=== PATIENT | female | born 1960 | race Caucasian/White ===

== ENCOUNTER 2017-03-16 17:10 | Emergency (ER) | payer OTHER ==
[2017-03-16] MEDS ORDERED: Metoclopramide HCl 10 MG/2 ML VIAL ONE (17:30)
[2017-03-16 17:55] LABS: Lactic Acid - Sepsis 2.6 mmol/L (0.5-2.2)
[2017-03-16 18:00] LABS: Band 2 % (5-11); Hematocrit 47.3 % (36.0-47.0); Mean Platelet Volume 6.1 fL (7.4-10.4); Neutrophil 92 % (42-75); Red Blood Cell (RBC) Count 5.07 mill/uL (4.20-5.40); Troponin I Less than 0.010 ng/mL (< 0.028); White Blood Cell (WBC) Count 8.8 thou/uL (4.8-10.8)
[2017-03-16 18:02] LABS: ALT (SGPT) 42 U/L (8-55); AST (SGOT) 38 U/L (5-34); Alkaline Phosphatase 127 U/L (40-150); Anion Gap 21 mmol/L (10-20); BUN (Urea Nitrogen) 21 mg/dL (9.8-20.1); Bilirubin, Total 0.4 mg/dL (0.2-1.2); CK (CPK) 77 U/L (29-168); Calc. Creatinine Clearance 0 mL/min (70-130); Calcium 9.8 mg/dL (7.8-10.44); Carbon Dioxide 19 mmol/L (22-29); Chloride 105 mmol/L (98-107); Estimated GFR-MDRD 59; Globulin 3.9 g/dL (2.4-3.5); Lipase 11 U/L (8-78); Protein, Total 8.2 g/dL (6.0-8.3)
[2017-03-16 18:35] LABS: Bilirubin Negative (Negative); Blood, Urine Large (Negative); Glucose, Urine (Dipstick) 100 mg/dL (Negative); Ketone, Urine Trace mg/dL (Negative); Nitrite Negative (Negative); Protein, Urine (Dipstick) 100 mg/dL (Neg-Trace); Urobilinogen 0.2 mg/dL (0.2-1.0)
[2017-03-16 18:44] LABS: Bacteria/HPF 2+ HPF (None Seen)
[2017-03-16 19:21] LABS: Lactic Acid - Sepsis 3.2 mmol/L (0.5-2.2)
--- NOTE | 2017-03-16 19:22 | CT ---
CT ABDOMEN AND PELVIS WITHOUT CONTRAST: Date: 03/16/17 HISTORY: Nausea, vomiting, and diarrhea. History of cholecystectomy. COMPARISON: None. FINDINGS: The lung bases are clear. No pericardial effusion. There are large calculi within both renal collecting systems. There is a chronic staghorn calculus wi thin the left renal pelvis with casting. This calculus measures just over 2.0 cm in transverse x 1.0 cm in AP dimension x 1.0 cm in craniocaudal dimension. There are smaller, subcentimeter, calculi in t he left and right inferior renal collecting systems and approximately a 5.0 mm calculus in the left i nterpolar collecting system. There is no perinephric edema nor hydroureter. Aortoiliac contour is normal. The colonic fecal matter is fluid attenuation and non-formed. This sugg ests underlying colitis. Appendix is visualized and is normal. Moderate calcifications of the aortoiliac system with focal ectasia of the infrarenal abdominal aorta which is nonaneurysmal. Prior cholecystectomy. Pancreas and spleen are unremarkable, as well as the adrenal glands. There is sclerosis of the femoral heads bilaterally with focal subcortical lucency suggesting of avas cular necrosis. Severe degenerative disease of pubic symphysis. IMPRESSION: 1. Extensive bilateral renal calculi without evidence of ureteral obstruction. There is a 2.0 x 1.0 x 1.0 cm calculus in the left renal pelvis, likely a staghorn calculus. 2. No hydroureter. No perinephric stranding. 3. Non-formed stool throughout the colon suggests diarrhea. 4. Avascular necrosis femoral heads without significant articular surface depression yet identified. POS: [facility]
[2017-03-16] MEDS ORDERED: Acetaminophen 500 MG TAB ONE (20:15)
[2017-03-16] MEDS ORDERED: Insulin Regular 300 UNITS/3 ML VIAL ONE (21:55)
== END 2017-03-16 22:09 | disposition home or self-care (01) ==
LOC: SCSER 17:10
DX: E87.2 Acidosis (principal); R11.2 Nausea with vomiting, unspecified; I25.10 Atherosclerotic heart disease of native coronary artery without angina pectoris; I11.0 Hypertensive heart disease with heart failure; I50.9 Heart failure, unspecified; I25.2 Old myocardial infarction; E11.9 Type 2 diabetes mellitus without complications; J44.9 Chronic obstructive pulmonary disease, unspecified; F41.9 Anxiety disorder, unspecified; F32.9 Major depressive disorder, single episode, unspecified; F17.290 Nicotine dependence, other tobacco product, uncomplicated; Z79.82 Long term (current) use of aspirin; Z79.4 Long term (current) use of insulin; Z79.51 Long term (current) use of inhaled steroids; Z79.899 Other long term (current) drug therapy
CPT/HCPCS: 36416; 74176; 80053; 81003; 81015; 82550; 82553; 83605; 83690; 84484; 85025; 93005; 96361; 96372; 96374; J1815; J2765

== ENCOUNTER 2017-06-08 19:58 | Observation (INO) | payer SELFPAY ==
[2017-06-08 21:00] LABS: #Basophils 0.1 thou/uL (0.0-0.2); #Eosinphils 0.1 thou/uL (0.0-0.7); #Monocytes 0.5 thou/uL (0.11-0.59); #Neutrophils 2.6 thou/uL (1.40-6.50); %Basophils 1.1 % (0.0-1.0); %Lymphocytes 37.5 % (21.0-51.0); %Neutrophils 49.4 % (42.0-75.0); Hemoglobin 13.4 g/dL (12.0-16.0); Mean Corpuscular HGB CONC 32.2 g/dL (32.0-36.0); Mean Platelet Volume 5.4 fL (7.4-10.4); Platelet Count 303 thou/uL (130-400); RBC Distribution Width 12.1 % (11.5-14.5); Red Blood Cell (RBC) Count 4.48 mill/uL (4.20-5.40); White Blood Cell (WBC) Count 5.3 thou/uL (4.8-10.8)
--- NOTE | 2017-06-08 21:03 | RAD ---
PORTABLE CHEST: Comparison: 05-14-16 History: Shortness of breath. FINDINGS: Heart size is within normal limits considering portable technique. Pacemaker is present. Post op ster notomy changes are noted. No signs of failure or infiltrates. IMPRESSION: Stable chest. POS: [facility]
[2017-06-08 21:12] LABS: ALT (SGPT) 26 U/L (8-55); AST (SGOT) 17 U/L (5-34); Albumin 3.9 g/dL (3.5-5.0); Alkaline Phosphatase 101 U/L (40-150); Anion Gap 13 mmol/L (10-20); BUN (Urea Nitrogen) 21 mg/dL (9.8-20.1); Bilirubin, Total 0.2 mg/dL (0.2-1.2); Calc. Creatinine Clearance 0 mL/min (70-130); Calcium 9.3 mg/dL (7.8-10.44); Carbon Dioxide 24 mmol/L (22-29); Chloride 107 mmol/L (98-107); Estimated GFR-MDRD 79; Globulin 2.7 g/dL (2.4-3.5); Glucose 230 mg/dL (70-105); Potassium 3.6 mmol/L (3.5-5.1); Protein, Total 6.6 g/dL (6.0-8.3); Sodium 140 mmol/L (136-145)
[2017-06-08 21:14] LABS: CKMB 1.5 ng/mL (0-6.6); Troponin I 0.031 ng/mL (< 0.028)
[2017-06-08 23:22] VITALS: BMI 36.9
[2017-06-08] MEDS ORDERED: Acetaminophen 325 MG TAB PO PRN (23:22)
[2017-06-08] MEDS ORDERED: Ondansetron HCl/PF 4 MG/2 ML Vial IVP PRN (23:22)
[2017-06-08] MEDS ORDERED: Ondansetron ODT 4 MG TAB SL PRN (23:22)
[2017-06-09 00:37] LABS: Troponin I 0.024 ng/mL (< 0.028)
[2017-06-09] MEDS ORDERED: Dextrose 50% Abboject 50 ML SYRINGE SLOW IVP PRN (03:04)
[2017-06-09] MEDS ORDERED: HumaLOG 300 UNITS/3 ML VIAL SC PRN (03:04)
[2017-06-09] MEDS ORDERED: guaiFENesin ER 600 MG TAB PO PRN (03:04)
[2017-06-09] MEDS ORDERED: PROVENTIL INHALER 6.7 G (200 INHALATIONS) INH PRN (03:04)
[2017-06-09] MEDS ORDERED: Nitroglycerin 0.4 MG TAB (25 Tab Bottle) SL SCH (03:04)
[2017-06-09] MEDS ORDERED: ALPRAZolam 0.25 MG TAB PO PRN (03:04)
[2017-06-09] MEDS ORDERED: Dextrose 5% in Water 1,000 ML IV PRN (03:04)
[2017-06-09] MEDS ORDERED: Enoxaparin Sodium 40 MG/0.4 ML SYRINGE SC SCH (03:30)
[2017-06-09 04:41] LABS: Anion Gap 10 mmol/L (10-20); BUN (Urea Nitrogen) 18 mg/dL (9.8-20.1); Calc. Creatinine Clearance 115 mL/min (70-130); Calcium 9.5 mg/dL (7.8-10.44); Carbon Dioxide 28 mmol/L (22-29); Chloride 105 mmol/L (98-107); Estimated GFR-MDRD 75; Glucose 284 mg/dL (70-105); Magnesium 1.9 mg/dL (1.6-2.6); Potassium 3.6 mmol/L (3.5-5.1); Sodium 139 mmol/L (136-145)
[2017-06-09 04:47] LABS: CKMB 1.4 ng/mL (0-6.6); Troponin I 0.011 ng/mL (< 0.028)
[2017-06-09 04:49] LABS: #Basophils 0.1 thou/uL (0.0-0.2); #Eosinphils 0.1 thou/uL (0.0-0.7); #Lymphocytes 1.9 thou/uL (1.20-3.40); #Monocytes 0.4 thou/uL (0.11-0.59); #Neutrophils 2.1 thou/uL (1.40-6.50); %Basophils 1.3 % (0.0-1.0); %Monocytes 9.2 % (0.0-10.0); %Neutrophils 45.4 % (42.0-75.0); Mean Corpuscular HGB CONC 32.8 g/dL (32.0-36.0); Mean Corpuscular Volume 97.6 fl (81.0-99.0); Mean Platelet Volume 6.9 fL (7.4-10.4); Platelet Count 307 thou/uL (130-400); RBC Distribution Width 12.4 % (11.5-14.5); Red Blood Cell (RBC) Count 4.36 mill/uL (4.20-5.40); White Blood Cell (WBC) Count 4.6 thou/uL (4.8-10.8)
[2017-06-09] MEDS: Nitroglycerin 2% Ointment 1 INCH/1 GM Packet TOP SCH ×2 (05:58→15:22)
--- NOTE | 2017-06-09 06:34 | HP ---
DATE OF ADMISSION: 06/09/2017 TIME OF SERVICE: 02:55. PRIMARY CARE PHYSICIAN: Dr. Kerr. PRIMARY QUILLER RUNNER: Dr. Sami Taylor. PRIMARY GREENHOUSE INSTRUCTOR: Dr. Angel Macedo. CHIEF COMPLAINT: Shortness of breath. HISTORY OF PRESENT ILLNESS: Ms. Ramsay is a 56-year-old female with a history of diabetes, CHF, sys tolic, COPD, coronary artery disease, fibromyalgia, high blood pressure and asthma who presents to an outside Emergency Department at [facility] ER for dyspnea on exertion. She relates a his tory of increased eating out at restaurants over the last week or two, she is having cough with no sp utum production, no fevers or chills. No nausea, vomiting, diarrhea or constipation. Some chest tig htness. She has been working in an environment where she has been stirring up lots of dust and just feels that she has been walking around the last week, she is getting more short of breath when she mo ves. She does have a history of tobacco abuse, but quit several years ago. She has had some polyuri a and dry mouth. Her sugars have not been overly elevated. She denies any other current complaints. PAST MEDICAL HISTORY: 1. Diabetes mellitus type 2, insulin-dependent. 2. Congestive heart failure, systolic. Last cardiac catheterization was in 10/12/2015 that showed s evere left ventricular dysfunction and obtuse marginal stent placement. She had been following up wi th Dr. Sami Taylor for some time, but has not seen her in a while, just moved back to town recently. 3. Chronic obstructive pulmonary disease, it has been ruled out by Dr. Macedo. She does have some variant of asthma she sees Dr. Macedo for. 4. Renal stones. 5. Coronary artery disease status post heart attack 4-5 times. She has had AICD placed and has had PCI and stent placement 2 separate occasions and bypass surgery in the past. 6. Fibromyalgia. 7. Chronic headaches. 8. Obstructive sleep apnea. 9. Hypertension. 10. Anxiety/depression. PAST SURGICAL HISTORY: 1. AICD placement in 04/2015. 2. PCI stent x2, last in 09/2015. There was coronary artery bypass grafting x2 vessels. 3. Oral surgery. 4. Cholecystectomy. 5. Bilateral corneal transplant. HOME MEDICATIONS: 1. Tylenol #3 p.o. b.i.d. as needed. 2. Xanax 0.5 mg p.o. b.i.d. 3. Aspirin 325 mg daily. 4. Coreg 12.5 mg p.o. b.i.d. 5. Flexeril 10 mg p.o. t.i.d. 6. CoQ10 of 100 mg p.o. q.p.m. 7. Lyrica 150 mg p.o. daily. 8. Flomax 0.4 mg daily. 9. Levemir 25 units subcu b.i.d. 10. Lipitor 40 mg p.o. at bedtime. 11. Ibuprofen 1-2 tablets daily 800 mg. 12. Women's multivitamin daily. 13. Potassium gluconate 595 mg daily. 14. Mucinex 1200 mg p.o. b.i.d. 15. Zoloft 100 mg daily. 16. Nitroglycerin 0.4 mg sublingual as needed for chest pain. 17. Fioricet with Codeine 1 capsule every 4 hours as needed. 18. Lasix 20 mg p.o. daily. 17. NovoLog 10 units subcu q.i.d. 18. DuoNeb 3 mL nebs q.i.d. p.r.n. 19. Phenergan 25 mg p.o. q.6 hours p.r.n. nausea, vomiting. 20. Ranitidine 75 mg p.o. daily. 21. Ventolin HFA inhaler 2 puffs inhaled every 6 hours as needed. ALLERGIES: ZOFRAN and ZANAFLEX. FAMILY HISTORY: Negative for clotting or bleeding disorder, no immune dysfunction, no premature sukumar nary disease. SOCIAL HISTORY: Significant for tobacco, but quit 5-6 years ago. No drugs or alcohol use. REVIEW OF SYSTEMS: A 10-point review of systems was performed and is negative for all systems except as stated as per HPI. PHYSICAL EXAMINATION: VITAL SIGNS: Temperature is 97.7, pulse 77, blood pressure 153/92, respiratory rate 16, sat 98% on r oom air. GENERAL: She is awake. She is alert. She is oriented x3. She is a well-developed, well-nourished, obese white female, appears to be in no acute distress. HEENT: Normocephalic and atraumatic. Pupils equal and reactive to light bilaterally, mucous membran es are moist. No visible lesions or thrush. She is not requiring nasal cannula oxygen at this time. NECK: Supple. There is no lymphadenopathy, JVD or thyromegaly. She has normal carotid upstrokes. I do not appreciate bruits. LUNGS: Clear to auscultation bilaterally. She has no wheezes, no rales, no rhonchi. No prolonged e xpiratory phase. She has diminished sounds in the bases, but no crackles. CARDIOVASCULAR: She has normal cardiac and regular. She has normal S1 and S2. No S3, S4. She has no audible murmurs. ABDOMEN: Obese. It is nontender, nondistended. She has no hepatosplenomegaly. EXTREMITIES: No cyanosis, no clubbing, no edema. SKIN: Warm, moist, and well perfused. She has no rash or lesions. NEUROLOGIC: Shows cranial nerves II-XII grossly intact. She has no focal neurologic deficits. She has normal speech pattern, she has 5/5 strength in all 4 of her extremities. MUSCULOSKELETAL: Exam is normal to inspection. Large joints appear uninflamed. There are no palpab le effusions. LABORATORY DATA: Sodium 140, potassium 3.6, chloride 107, bicarbonate 24, BUN 21, creatinine 0.76, a nd glucose of 230. Liver functions are normal. CBC showed a white count of 5.3, hemoglobin 13.4, hematocrit of 41.7, and platelet count is 303,000. There is no white differential. CK-MB was normal at 1.5, troponin I was 0.031. Repeat troponin I 0.024. Beta hydroxybutyrate was 0. 08. No recent urinalysis. Chest x-ray showed no acute cardiopulmonary disease. ASSESSMENT AND PLAN: 1. Dyspnea on exertion: Patient is satting 98% on room air. She has clear lungs at this time. Tro ponin was indeterminate on arrival and has normalized. We will get serial cardiac biomarkers. I mason l place her on cardioprotective medications including her Coreg, nitroglycerin paste, oxygen, and asp irin. We will get a nuclear stress test scheduled for the morning if her biomarkers remain negative. We will ask Dr. Taylor, her clerk entry level to take a look at her to determine whether we need to procee d with the stress testing or not. 2. Possible mild acute asthma exacerbation: Patient does not give a history of being in [place] en[place] onments lately. She says she has had some tightness consistent with asthma exacerbation, but lungs a re currently clear. We will continue her p.r.n. nebs here and notify Dr. Macedo for admission. 3. Diabetes mellitus type 2, sugar 230 on admission. We will hold her Levemir. She is n.p.o. right now. We will use sliding scale corrective insulin at moderate scale with q.i.d. a.c. and at bedtime Accu-Cheks. 4. History of renal stones, not clinically active. 5. Coronary artery disease as above. 6. Fibromyalgia. Medications continued. 7. Chronic headaches. None at present. 8. Obstructive sleep apnea, not on CPAP. 9. Essential hypertension as above.
[2017-06-09] MEDS ORDERED: Acetaminophen 325 MG TAB PO PRN (08:00)
[2017-06-09] MEDS: Cyclobenzaprine 10 MG TAB PO SCH ×2 (08:19→15:22)
[2017-06-09 08:24] VITALS: BP 126/60; TEMP 97.2
[2017-06-09] MEDS ORDERED: CODEINE PO PRN (08:48)
[2017-06-09] MEDS ORDERED: BUTALBIT PO PRN (08:48)
[2017-06-09] MEDS ORDERED: CAFF PO PRN (08:48)
[2017-06-09] MEDS ORDERED: ACETAMIN PO PRN (08:48)
[2017-06-09] MEDS ORDERED: Furosemide 20 MG TAB PO SCH (09:00)
[2017-06-09] MEDS ORDERED: Carvedilol 6.25 MG TAB PO SCH (09:00)
[2017-06-09] MEDS ORDERED: Famotidine 20 MG TAB PO SCH (09:00)
[2017-06-09] MEDS ORDERED: Aspirin 325 MG TAB PO SCH (09:00)
[2017-06-09] MEDS ORDERED: Tamsulosin HCl 0.4 MG CAP PO SCH (09:00)
[2017-06-09] MEDS ORDERED: Fioricet 325/50/40 mg Tablet PO PRN (10:14)
--- NOTE | 2017-06-09 10:38 | CON ---
DATE OF CONSULTATION: 06/09/2017 HISTORY: Ms. Ramsay is a very unfortunate 56-year-old female who has long history of coronary arter y disease. She has undergone angioplasty and stent placement, but also subsequent bypass surgery to the obtuse marginal branch of left circumflex and the right coronary artery. She did not have any si gnificant disease in left anterior descending artery on her last cardiac catheterization, but she has undergone angioplasty and stent placement in the past to the left anterior descending artery. She h ad had ejection fraction previously about 15-20% and has undergone AICD implant. Her last cardiac ca theterization was in 2015 which showed a patent saphenous vein graft to the obtuse marginal branch, b ut there was distal disease of 80% stenosis beyond the anastomotic site. She also had a patent right coronary artery graft and a patent stent to the left anterior descending artery with proximal 20% st enosis left anterior descending artery and 20% in-stent restenosis in the left anterior descending ar deonna. At that time, she underwent angioplasty and stent placement to the obtuse marginal branch of l eft circumflex distal to the anastomotic site. Her [place] vessel showed circumflex to be 90% stenose d and also the right coronary was 100% occluded. She has been doing quite well. She had moved to [place] and now has moved back to this area. She has not seen me in the office for quite some time now. Apparently she had moved back to this area, was living with her mother, but now her mother is moving to [place] and now this lady is moving to a trailer herself here in the local area. She notice d in all the activities she has become short of breath and has dyspnea on exertion. She attributed t his some to her asthma, which she has had in the past, but does note that only she become short of br eath with activity. She denied any chest pain. She has had no lower extremity edema. She has multi ple risk factors for coronary artery disease. She smoked heavily in the past, but stopped a couple o f years ago. She also has a history of hypertension, diabetes, and hypercholesterolemia. Her cardia c enzymes are negative for myocardial infarction. EKG shows some nonspecific T-wave changes which ma ve been present on previous EKGs. PAST MEDICAL HISTORY: Significant for coronary artery disease, angioplasty, stent placement, bypass surgery. She has had myocardial infarctions in the past. She has had an ablation of atrial flutter. She has a history of diabetes, hypertension, asthma as well as hypercholesterolemia. SOCIAL HISTORY: She says that she has stopped smoking. She has no alcohol use. She is single, has no children. FAMILY HISTORY: Noncontributory, but her mother also has coronary artery disease. ALLERGIES: She is allergic to ZANAFLEX. REVIEW OF SYSTEMS: Twelve point review of systems unremarkable except what is noted in the history o f present illness. MEDICATIONS: Proventil inhaler, Xanax, Tylenol, aspirin 325 mg a day, Lipitor 80 mg a day, Coreg 12 .5 mg b.i.d., Flexeril 10 mg t.i.d. She is taking Lovenox subcu injections since being admitted to [facility], Pepcid 10 mg daily, Lasix 20 mg daily. She is also on insulin per sliding scale. She i s on ipratropium/albuterol sulfate nebulizer treatments 4 times a day, nitroglycerin 1 inch q.8 hours and p.r.n. sublingual tablets. She is on Lyrica 150 mg p.o. at bedtime, Zoloft 100 mg daily, and Fl omax 0.4 mg p.o. daily. PHYSICAL EXAMINATION: GENERAL: Reveals a well-developed, well-nourished female in no acute distress at this time. VITAL SIGNS: Her blood pressure is 126/60, heart rate 88 and regular, respiration rate 16. She is a febrile. HEENT: Shows the head to be normocephalic, atraumatic. Carotid pulses are present. I did not hear any significant bruits. CHEST: Clear to auscultation. There were no rales, rhonchi or wheezing noted. CARDIOVASCULAR: Exam reveals a regular rate and rhythm. She has a normal S1, S2, no S3, S4. There were no significant murmurs, heaves, thrills, bruits or rubs appreciated. ABDOMEN: Shows obesity with positive bowel sounds. No organomegaly noted. Positive bowel sounds ar e present. No masses. Femoral pulses are present. EXTREMITIES: Showed no clubbing, cyanosis or edema. Pedal pulses are present. NEUROLOGIC: The patient appears to be fully intact. SKIN: Warm and dry. PSYCHOSOCIAL: Psychosocial appears to be within normal limits. LABORATORY AND X-RAY FINDINGS: Her EKG shows a sinus rhythm with nonspecific ST-T-wave changes in th e lateral leads, which are unchanged from previous EKGs. Her laboratory data shows a troponin I of 0 .031 initially which is now decreased down to 0.011. Her BNP was 54.9. There were no significant ab normalities otherwise appreciated on the laboratory data except for the blood sugar which was 284, wh ich has not been under very good control. IMPRESSION: 1. Dyspnea on exertion which may or may not be related to cardiac versus her pulmonary status, but g iven her multiple problems in the past with coronary artery disease, I would suggest she undergo stre ss testing to rule out evidence for underlying ischemia. If any is found, then I would suggest she u ndergo repeat cardiac catheterization. 2. History of cardiomyopathy. We will also evaluate by the stress test what her ejection fraction i s at this time. 3. Diabetes. This will be dealt with by the primary care service. 4. History of hypertension which is under good control at this time. We will continue to monitor this patient very carefully. It does not appear that she has any congest elizabeth heart failure symptoms at this time. She has had a history of some diastolic dysfunction previou sly on echocardiograms. Thank you very much for the consultation. We plan to continue to follow Ms. Ramsay very closely and will review the results of the stress test once available.
[2017-06-09 13:47] LABS: CKMB 1.2 ng/mL (0-6.6); Troponin I Less than 0.010 ng/mL (< 0.028)
--- NOTE | 2017-06-09 13:56 | NM ---
CARDIAC SPECT: CLINICAL HISTORY: 56-year-old female with chest pain, CHF, COPD, coronary artery disease, status post CABG, hypertensio n, and diabetes. TECHNIQUE: A stress-only myocardial perfusion scan was performed following the intravenous administration of 29 mCi technetium-99m sestamibi. Pharmacologic stress with Lexiscan was monitored and interpreted by Eladio Brownlee. FINDINGS: Fairly homogeneous tracer distribution is seen in the myocardial segments on the post stress images. GATED SPECT LVEF: 49%. WALL MOTION EXAM: No significant segmental wall motion abnormalities are seen. IMPRESSION: Normal post stress myocardial perfusion scan. POS: [facility]
--- NOTE | 2017-06-09 14:47 | DIS ---
DATE OF ADMISSION: 06/09/2017 DATE OF DISCHARGE: 06/09/2017 CONDITION AT THE TIME OF DISCHARGE: Stable and improved. DISCHARGE DIAGNOSES: 1. Dyspnea on exertion, no hypoxia noticed 2. Mild acute asthma exacerbation and diabetes mellitus. 3. History of renal stones. 4. Coronary artery disease. 5. Fibromyalgia. 6. Headaches. 7. Sleep apnea. 8. Hypertension. CONSULTATION INHOUSE: Include Cardiology, Dr. Sami Taylor. PROCEDURES DONE INHOUSE: Include nuclear medicine stress test which is negative for any acute revers ibility or infarction. EF estimated at 49%. PRIMARY CARE PHYSICIAN: Felicitas Kerr M.D. DISCHARGE MEDICATIONS: Remain the same as admission medication. Please see admission history and physical dictated by Dr. Montero few hours ago. No changes were made . HISTORY OF PRESENTING ILLNESS: Ms. Ramsay was admitted for nonspecific complaints mainly dyspnea on exertion, generalized weakness and malaise, some dry cough without sputum. No fever, no chills. He r CK-MB was normal. Troponin was 0.031. Repeat troponin was 0.024. She was admitted for further wo rkup and rule out acute coronary syndrome. Dr. Taylor is her marketing proposal coordinator, who was consulted given her history of coronary artery disease. Please see admission history and physical for further details. HOSPITAL COURSE: The patient actually did very well for few hours of her hospitalization. She actua lly had no chest pain and no troubled breathing. She had no hypoxia and remained 94%-96% on room air . Stress test was done, which was unremarkable. Repeat cardiac enzymes trended down from 0.031-0.02 4, then 0.011 and then less than 0.012. Dr. Taylor saw the patient and agreed that because of her norm al stress test, she can be released from the hospital. She will follow up with her primary care mayra cunningham. She was seen and examined prior to discharge. PHYSICAL EXAMINATION: VITAL SIGNS: Include temperature 97.2, pulse of 86, respirations 20, saturating 96% on room air, blo od pressure 126/60. GENERAL: No acute distress. CHEST: Clear to auscultation bilaterally. Rate and rhythm is regular. Discharge plan was discussed with the patient who verbalized understanding.
[2017-06-09] MEDS ORDERED: Regadenoson 0.4 MG/5 ML SYRINGE ONE (17:05)
[2017-06-09] MEDS ORDERED: Atorvastatin Calcium 40 MG TAB PO SCH (21:00)
[2017-06-09] MEDS ORDERED: Pregabalin 75 MG CAP PO SCH (21:00)
== END 2017-06-09 16:39 | disposition home or self-care (01) ==
LOC: SCSER 19:58 → 2SW 22:49
PROVIDERS: ADMIT Internal Medicine Infectious Disease; ATTEND Internal Medicine Infectious Disease
DX: R06.09 Other forms of dyspnea (principal); J45.901 Unspecified asthma with (acute) exacerbation; E11.9 Type 2 diabetes mellitus without complications; I25.10 Atherosclerotic heart disease of native coronary artery without angina pectoris; M79.7 Fibromyalgia; R51 Headache; G47.30 Sleep apnea, unspecified; I25.2 Old myocardial infarction; E78.00 Pure hypercholesterolemia, unspecified; I42.9 Cardiomyopathy, unspecified; I11.0 Hypertensive heart disease with heart failure; I50.20 Unspecified systolic (congestive) heart failure; Z79.4 Long term (current) use of insulin; Z79.82 Long term (current) use of aspirin; Z79.1 Long term (current) use of non-steroidal anti-inflammatories (NSAID); Z79.899 Other long term (current) drug therapy; Z94.7 Corneal transplant status; Z90.49 Acquired absence of other specified parts of digestive tract; Z95.5 Presence of coronary angioplasty implant and graft; Z95.810 Presence of automatic (implantable) cardiac defibrillator; Z87.442 Personal history of urinary calculi; Z82.49 Family history of ischemic heart disease and other diseases of the circulatory system
CPT/HCPCS: 36415; 36416; 71045; 78452; 80048; 80053; 82010; 82553; 83735; 83880; 84484; 85025; 93005; 93017; 94640; 96372; A9500; G0378; J1650; J2785; J7620

== ENCOUNTER 2017-11-15 13:24 | Emergency (ER) | payer SELFPAY ==
--- NOTE | 2017-11-15 15:30 | RAD ---
FOUR VIEWS OF THE LEFT KNEE: INDICATION: Left knee injury. COMPARISON: None. FINDINGS: There is mild osteoarthrosis of the left knee. There are surgical clips seen within the medial aspec t of the left knee likely related to saphenous vein grafting. There is mild joint capsular distentio n . IMPRESSION: 1. No acute osseous abnormality demonstrated. 2. Mild degenerative arthrosis of the left knee. 3. Mild joint capsular distention. If there is concern for internal derangement, further evaluation with MRI of the left knee may be helpful for this patient. POS: [facility]
== END 2017-11-15 14:54 | disposition home or self-care (01) ==
LOC: SCSER 13:24
DX: S83.92XA Sprain of unspecified site of left knee, initial encounter (principal); I25.10 Atherosclerotic heart disease of native coronary artery without angina pectoris; I11.0 Hypertensive heart disease with heart failure; I50.9 Heart failure, unspecified; F32.9 Major depressive disorder, single episode, unspecified; I25.2 Old myocardial infarction; E11.9 Type 2 diabetes mellitus without complications; F17.210 Nicotine dependence, cigarettes, uncomplicated; Z79.899 Other long term (current) drug therapy; Z87.442 Personal history of urinary calculi; Z71.6 Tobacco abuse counseling; Z79.4 Long term (current) use of insulin; Z79.1 Long term (current) use of non-steroidal anti-inflammatories (NSAID); W19.XXXA Unspecified fall, initial encounter
CPT/HCPCS: 99406

== ENCOUNTER 2018-03-31 11:34 | Outpatient (CLI) | payer OTHER ==
--- NOTE | 2018-03-31 13:25 | RAD ---
TWO VIEWS CHEST: HISTORY: Dyspnea. FINDINGS: PA and lateral views of the chest are obtained on 03/31/2018. Comparison is made to previous exam from 02/27/2016. Two views chest demonstrate sternotomy wires seen. There is an intracardiac defibrillator. The lung s are well aerated. No evidence of active intrathoracic disease is seen. No evidence of effusions, pneumonia, or pneumothorax seen. IMPRESSION: Unremarkable 2 views chest. POS: [facility]
== END 2018-03-31 11:35 | disposition home or self-care (01) ==
LOC: RAD 11:34
PROVIDERS: ATTEND Internal Medicine
DX: R06.00 Dyspnea, unspecified (principal)
CPT/HCPCS: 71046

== ENCOUNTER 2018-07-05 23:15 | Observation (INO) | payer SELFPAY ==
[2018-07-05] MEDS ORDERED: Aspirin Chewable 81 MG TAB ONE (23:41)
[2018-07-05 23:43] LABS: #Basophils 0.1 thou/uL (0.0-0.2); #Eosinphils 0.2 thou/uL (0.0-0.7); #Lymphocytes 2.7 thou/uL (1.20-3.40); #Monocytes 0.7 thou/uL (0.11-0.59); #Neutrophils 3.2 thou/uL (1.40-6.50); %Basophils 1.2 % (0.0-1.0); %Eosinophils 2.4 % (0.0-10.0); %Lymphocytes 39.9 % (21.0-51.0); %Monocytes 9.6 % (0.0-10.0); %Neutrophils 46.9 % (42.0-75.0); Hemoglobin 15.6 g/dL (12.0-16.0); Mean Corpuscular HGB CONC 34.2 g/dL (32.0-36.0); Mean Corpuscular Hemoglobin 32.9 pg (27.0-31.0); Platelet Count 320 thou/uL (130-400); RBC Distribution Width 12.9 % (11.5-14.5); Red Blood Cell (RBC) Count 4.74 mill/uL (4.20-5.40); White Blood Cell (WBC) Count 6.9 thou/uL (4.8-10.8)
--- NOTE | 2018-07-05 23:52 | RAD ---
CHEST ONE VIEW: Indication: Shortness of breath, chest pain. Comparison: 03-31-18 FINDINGS: There is stable cardiomegaly. AICD and midline sternotomy changes are stable. No confluent airspace o pacity or pleural effusion is noted. No acute osseous abnormality is evident. IMPRESSION: No acute cardiopulmonary abnormality. POS: [facility]
[2018-07-05 23:54] LABS: ALT (SGPT) 31 U/L (8-55); AST (SGOT) 20 U/L (5-34); Albumin 4.1 g/dL (3.5-5.0); Alkaline Phosphatase 95 U/L (40-150); Anion Gap 16 mmol/L (10-20); BUN (Urea Nitrogen) 16 mg/dL (9.8-20.1); Bilirubin, Total 0.2 mg/dL (0.2-1.2); CK (CPK) 101 U/L (29-168); Calc. Creatinine Clearance 0 mL/min (70-130); Carbon Dioxide 26 mmol/L (22-29); Chloride 103 mmol/L (98-107); Estimated GFR-MDRD 61; Globulin 2.9 g/dL (2.4-3.5); Glucose 265 mg/dL (70-105); Potassium 3.9 mmol/L (3.5-5.1); Sodium 141 mmol/L (136-145)
[2018-07-06] MEDS ORDERED: Morphine 4 MG/ML VIAL ONE (00:40)
[2018-07-06 04:42] LABS: Troponin I Less than 0.010 ng/mL (< 0.028)
[2018-07-06 06:03] LABS: Troponin I Less than 0.010 ng/mL (< 0.028)
--- NOTE | 2018-07-06 08:09 | CT ---
CTA THORAX UTILIZING IV CONTRAST AND 3D REFORMATTED IMAGING: COMPARISON: 12/25/2015 FINDINGS: No central or segmental pulmonary embolus is evident. No confluent air space opacity or pleural effu zee is noted. There is stable post surgical change of prior CABG. There is a pacemaker overlying t he left chest wall. The visualized upper abdomen reveals no definite acute abnormality. There is mi ld scattered degenerative and osteoarthritic change. IMPRESSION: 1. No central or segmental pulmonary embolus. 2. No acute cardiopulmonary abnormality. POS: [facility]
[2018-07-06 10:22] LABS: Troponin I Less than 0.010 ng/mL (< 0.028)
[2018-07-06] MEDS ORDERED: Acetaminophen 325 MG TAB ONE (10:43)
[2018-07-06] MEDS ORDERED: Lorazepam 1 MG TAB ONE (14:39)
[2018-07-06 16:16] VITALS: BMI 36.8
[2018-07-06] MEDS ORDERED: Acetaminophen 325 MG TAB PO PRN (17:06)
[2018-07-06] MEDS ORDERED: Furosemide 20 MG TAB PO PRN (17:09)
[2018-07-06] MEDS ORDERED: PROVENTIL INHALER 6.7 G (200 INHALATIONS) INH PRN (17:09)
[2018-07-06] MEDS ORDERED: Famotidine 20 MG TAB PO PRN (17:09)
[2018-07-06] MEDS ORDERED: ALPRAZolam 0.5 MG TAB PO PRN (17:09)
[2018-07-06] MEDS ORDERED: Promethazine 25 MG TAB PO PRN (17:09)
[2018-07-06] MEDS ORDERED: Acetaminophen/Codeine 30-300mg Tablet PO PRN (17:09)
[2018-07-06] MEDS ORDERED: Tamsulosin HCl 0.4 MG CAP PO PRN (17:09)
[2018-07-06] MEDS ORDERED: Nitroglycerin 0.4 MG TAB (25 Tab Bottle) SL PRN (17:15)
[2018-07-06] MEDS ORDERED: Nicotine 14 MG PATCH TD SCH ×2 (18:00→21:00)
--- NOTE | 2018-07-06 18:11 | HP ---
CHIEF COMPLAINT: Chest pain. HISTORY OF PRESENT ILLNESS: This patient is a 57-year-old female with a history of coronary artery disease, history of cardiac interventions including bypass x2 and subsequent stenting. The patient was admitted here in May of 2017 with chest pain, had a stress test performed at that time. However, the patient reports that subsequent to that, she has developed some pelvic pain and some dysfunctional bleeding and was supposed to undergo a hysterectomy. The plan was for cardiac clearance and she followed up with Dr. Taylor, at which time she had an echocardiogram. Echocardiogram apparently was reportedly abnormal and she then had a stress test, which was also reportedly abnormal and the plan was then for the patient to undergo a heart catheterization, however, she has not been able to financially arrange that. The patient is yet to get hysterectomy. Yesterday, the patient reports that she developed the onset of some vague chest pain that she could not define as either musculoskeletal or cardiac. She reports it did radiate to her back. She had associated shortness of breath and nausea. Denied any lightheadedness or diaphoresis. The pain was 6/10 at its peak. She presented to the emergency department where she received an aspirin and she did not receive nitroglycerin as she told them it would likely give her a severe headache and they opted to give her some morphine. Subsequently, she went to sleep after continued to have some intermittent pain. When she awoke, the pain was resolved and has not come back. Currently she is pain free. REVIEW OF SYSTEMS: The patient adds that she was having palpitations primarily in the form of feeling like her heart was going to beat out of her chest. All other systems reviewed and all pertinent positives and negatives were noted in the history of present illness. PAST MEDICAL HISTORY: The patient does have the pelvic pain. She has a hypoechoic masslike structure seen on the left ovary that is 2.2 x 1.8 x 1.8 cm and looks like a complex cyst, but malignant process could not be ruled out based on ultrasound. She also has the history of congestive heart failure systolic. I do not have a copy of the report of an echo, however, apparently the previous one showed severe left ventricular dysfunction. She has some type of reactive airway, which is apparently not COPD after workup with Dr. Macedo. History of renal stones, history of coronary artery disease. She reports history of LA x4-5. She had AICD placement and PCI on two separate occasions and bypass surgery. She fibromyalgia, chronic headache syndrome, obstructive sleep apnea, hypertension, anxiety, and depression. PAST SURGICAL HISTORY: AICD placed in 2016; PCI x2, last one in 2015; oral surgery; cholecystectomy; bilateral corneal transplants; and coronary artery bypass graft x2 vessels. FAMILY HISTORY: Reviewed with the patient. Negative for anything relative to this admission. SOCIAL HISTORY: The patient continues to smoke half a pack to a pack of cigarettes per day. Denies alcohol or drugs. She is full code and her son would be her surrogate decision maker. His name is Sonu. ALLERGIES: MONTELUKAST, ONDANSETRON, RANITIDINE, TIZANIDINE. HOME MEDICATIONS: 1. Co Q10 one daily. 2. Zoloft 100 mg daily. 3. Ranitidine 75 one p.o. b.i.d. 4. Lyrica 75 b.i.d. 5. Potassium 595 mg p.o. daily. 6. Multivitamin one p.o. daily. 7. Ibuprofen p.r.n. 8. Coreg 12.5 b.i.d. 9. Aspirin 325 daily. 10. Ventolin HFA 2 puffs q.6 hours p.r.n. 11. Flomax 0.4 mg daily. 12. Phenergan 25 mg q.6 hours. 13. Nitrostat 0.4 q.5 minutes p.r.n. 14. Levemir FlexPen 25 units subcu b.i.d. 15. Ipratropium/albuterol 3 mL per neb q.i.d. p.r.n. 16. NovoLog mix 70/30, 10 units subcu q.i.d. 17. Lasix 20 mg b.i.d. 18. Flexeril 10 mg t.i.d. 19. Fiorinal one p.o. q.i.d. p.r.n. 20. Atorvastatin 80 mg at bedtime. 21. Tylenol No. 3 p.r.n. 22. Xanax 0.5 mg p.o. b.i.d. p.r.n. PHYSICAL EXAMINATION: VITAL SIGNS: Temperature is 98, pulse 92, respirations 16, O2 saturation 92% on room air, BP 159/97. GENERAL APPEARANCE: The patient is awake, alert, oriented, pleasant, and cooperative. HEENT: PERRL. No OP lesions. NECK: Supple and symmetric without lymphadenopathy, JVD, or carotid bruits. HEART: Regular rate and rhythm without murmurs, gallops, or rubs. LUNGS: Clear to auscultation bilaterally with good chest wall expansion and air exchange. No wheezes or rales. ABDOMEN: Soft, nontender, and nondistended. Positive bowel sounds. No masses. No organomegaly. EXTREMITIES: Trace pretibial pitting edema. No cyanosis or clubbing. SKIN: Reveals the well-healed sternal incisional scar, otherwise benign. NEURO: The patient is fully intact. She has no evidence of focal defects. Moves all extremities appropriately. PSYCHIATRIC: The patient has no evidence of acute anxiety and has normal affect and behavior presently. LABORATORY DATA: White count 6.9, hemoglobin 15.6, platelets 320. D-dimer 0.74. Sodium 141, potassium 3.9, chloride 103, CO2 is 26, BUN 16, creatinine is 0.95, glucose 265, calcium 10.0, AST 20, ALT is 31, alkaline phosphatase 95. Troponin less than 0.01, repeated four times. BNP 38.6, albumin 4.1. Chest x-ray is negative. CT angio of the chest negative other than evidence of the prior CABG. IMPRESSION AND PLAN: 1. Chest pain. The patient apparently has had an outpatient workup by Dr. Taylor, which included abnormal echocardiogram and abnormal stress test with plans for outpatient heart catheterization. At this point, the patient has negative enzymes and will simply defer to Cardiology consult to determine where to proceed from this point. It appears as though the PE has been effectively eliminated and there is no other significant pathology on the chest CT to indicate a source of pain. 2. Diabetes mellitus. We will continue with her usual home regimen. We will keep her on the glucose control diet. Check Accu-Cheks a.c. and at bedtime. 3. Anxiety. Continue with her Zoloft and Xanax. 4. History of fibromyalgia. Continue with the Lyrica, Flexeril, and codeine. 5. Headache syndrome. Continue with Fiorinal as needed. 6. History of congestive heart failure. Continue with the Coreg and aspirin. The patient has a defibrillator in place. Job ID: [id number]
[2018-07-06] MEDS: Fiorinal 325/50/40 mg Tablet PO PRN (19:21)
[2018-07-06] MEDS: Cyclobenzaprine 10 MG TAB PO SCH (20:03)
[2018-07-06] MEDS: Carvedilol 6.25 MG TAB PO SCH (20:03)
[2018-07-06] MEDS: Pregabalin 75 MG CAP PO SCH (20:04)
[2018-07-06] MEDS ORDERED: Atorvastatin Calcium 40 MG TAB PO SCH (21:00)
[2018-07-06] MEDS ORDERED: Non-Formulary Item 1 EACH (Levemir Flexpen [Levemir Flexpen] 25 UNITS) SC SCH (21:00)
[2018-07-06] MEDS: HumuLIN 70/30 (300 UNITS/3 ML VIAL) SC SCH (21:30)
[2018-07-06] MEDS: Insulin Glargine 25 UNITS in Pre-Filled Syringe SC SCH (21:33)
[2018-07-07] MEDS: Fiorinal 325/50/40 mg Tablet PO PRN ×2 (03:35→09:58)
--- NOTE | 2018-07-07 05:19 | CON ---
DATE OF CONSULTATION: REASON FOR CARDIOLOGY CONSULTATION: Chest pain, CAD, plan for outpatient catheterization. HISTORY OF PRESENT ILLNESS: Ms. Ramsay is a 57-year-old female with a significant history of coronary artery disease with history of a CABG x2 in 2015 and several coronary stent placements in the past, history of atrial fibrillation with ablation in 2015, AICD placement in 2015, and a current smoker 1 pack a day. The patient has had intermittent spasm like discomfort around the midsternal incision area and under the bilateral breasts for a few seconds all day today. The pain scale was 6/10 at peak time. She also complaining of nausea and headache, which she has regularly. At this moment, she does not have any shortness of breath, dizziness, lightheadedness, chest pain or discomfort, or spasm-like discomfort in her chest, or any other cardiac complaints. She had a viral infection over the 1 month in April 2018. She had a cardiac workout for left ovarian mass or cyst removed. Echocardiogram shows EF of 25% to 30%, global hypokinesis, mild aortic valve regurgitation, mild tricuspid regurgitation, trace mitral valve regurgitation, grade 1 diastolic dysfunction. The patient had a stress test done in May 04, which shows septal hypokinesis, anterolateral ischemia she planned to have cardiac catheterization as outpatient by Dr. Taylor. She has not had any schedule done yet at this moment. PAST SURGICAL HISTORY: 1. CAD. 2. Ischemic cardiomyopathy. 3. Chronic systolic heart failure. 4. Hypertension. 5. COPD. 6. Fibromyalgia. 7. Chronic headache syndrome. 8. Obstructive sleep apnea. 9. Anxiety. 10. Depression. 11. Current smoker one pack a day. 12. The patient has a history of atrial flutter. PAST SURGERY HISTORY: 1. CABG x2 in 2015. 2. Multiple coronary stent placements. 3. History of AICD placement in 2015. 4. Status post CTI ablation in April 2015. FAMILY HISTORY: The patient's mother had a history of coronary artery disease. SOCIAL HISTORY: She is living with her roommate. She is . She had 4 children who live well. She continues to smoke half pack to one pack a day and vapor both together. She denied alcohol or illicit drug abuse. She does not do exercise. ALLERGIES: SHE IS ALLERGIC TO MONTELUKAST, ONDANSETRON, RANITIDINE, AND TIZANIDINE. HOME MEDICATIONS: Please refer to the patient's medical record. REVIEW OF SYSTEMS: A 12-point review of systems negative unless otherwise mentioned in the HPI. PHYSICAL EXAMINATION: VITAL SIGNS: Blood pressure 168/90, heart rate 89 and sinus rhythm, temperature 98.0, and 93% on room air. GENERAL: The patient is alert and oriented x4, not in acute distress. HEENT: Normocephalic, atraumatic. EYES: Extraocular muscle movement intact. ENT and mouth, oral and nasal mucosa moist without lesion. NECK: Supple. Normal range of motion. No JVD. HEART: Regular rate and rhythm. Normal S1, S2. There is no S3, S4. No significant murmur, hives, or thrills noted. ABDOMEN: Soft, nontender. No mass to palpitate. Bowel sounds are present. EXTREMITIES: 2+ pulses in the bilateral upper and lower extremities. No edema. SKIN: Warm and dry. No lesion, rash, erythema noticed. NEUROLOGIC: The patient is alert and oriented x4. Nonfocal. PSYCHIATRIC: The patient has no evidence of acute anxiety or depression. LABORATORY DATA: WBC 6.9, hemoglobin 15.6, hematocrit 45.5, and platelets 320. D-dimer 0.74. Sodium 141, potassium 3.9, BUN 16, creatinine 0.95, glucose 265, AST 20, and ALT 31. Troponin has been negative. BNP is 38.6. Chest x-ray showed no evidence of acute cardiomyopathy. CT scan of the chest was done due to elevated D-dimer, which shows no evidence of pulmonary embolism at this moment. ASSESSMENT AND PLAN: 1. Chest pain. The patient's symptom seems atypical and possible from musculoskeletal etiology. However, the patient has abnormal echocardiogram and stress test, which were done at Dr. Taylor' office and the patient was planned to undergo a cardiac catheterization. I would like to discuss with Dr. Talyor for further treatment for this patient. Most likely, the patient is going to have cardiac catheterization while at this admission. We would like to continue to monitor on the telemetry at this moment. The patient is on aspirin 325 mg once a day, atorvastatin 80 mg once a day, carvedilol 12.5 mg twice a day. 2. Coronary artery disease with a history of coronary artery bypass grafting and stent placement. The patient's condition is stable at this moment on the telemetry. We would like to continue to monitor. 3. Ischemic cardiomyopathy with automatic implantable cardioverter-defibrillator placement. The patient's echocardiogram in March 2018 showed the EF of 25% to 30%. The patient's condition is stable at this moment on room air. She has Lasix 20 mg twice a day as needed. She is not on AREN inhibitor or ARB at this moment. We would like to start those medicines if the patient's blood pressure is stable addition of blood pressure medicine. 4. History of diabetes, which is managed by primary care doctor. 5. Hypertension. The patient's blood pressure is elevated at this moment. We would like to continue to monitor and likely adjust the patient's blood pressure medicine as needed. 6. History of atrial flutter with status post CTI ablation in April 2015. The patient's telemetry record shows the patient has been in sinus rhythm. We would like to continue to monitor. 7. Current smoker. Smoking cessation education given to the patient. Thank you for allowing the Cardiology Service to participate in the care of this patient. We will follow along with the patient's care team and make further recommendations as appropriate. Job ID: [id number]
[2018-07-07 05:37] LABS: Anion Gap 10 mmol/L (10-20); BUN (Urea Nitrogen) 13 mg/dL (9.8-20.1); Calc. Creatinine Clearance 123 mL/min (70-130); Calcium 9.3 mg/dL (7.8-10.44); Carbon Dioxide 29 mmol/L (22-29); Chloride 104 mmol/L (98-107); Estimated GFR-MDRD 86; Glucose 206 mg/dL (70-105); Potassium 3.2 mmol/L (3.5-5.1); Sodium 140 mmol/L (136-145)
--- NOTE | 2018-07-07 08:24 | CON ---
DATE OF CONSULTATION: 07/06/2018 ADDENDUM: To the cardiology consult note already dictated by my nurse practitioner, Sarah James. INDICATION FOR CONSULTATION: A 57-year-old patient with a history of coronary artery disease, bypass surgery, angioplasty, stent placement, and complaining of chest pain. She has a history of diabetes which is insulin dependent. She also has a history of tobacco abuse. She continues to smoke half a pack a day. She was admitted due to chest pain, which she believes is a cramping type pain, but then cardiac enzymes are negative for myocardial infarction. Her BNP is within normal limits. No evidence of congestive heart failure. Her blood sugar was 223, increased up to 257. She was seen in the office recently back in March, at which time she was being evaluated to undergo oophorectomy and hysterectomy due to an ovarian cyst and also had a biopsy which was abnormal apparently, she underwent preop evaluation and was found to have abnormal myocardial perfusion study with evidence of anterolateral reversible ischemia and was advised to undergo cardiac catheterization. Unfortunately, due to finances, the hospital had turned her down for cardiac catheterization at that time. Her echocardiogram also in March showed ejection fraction 25% to 30% with global hypokinesis by stress testing. However, the ejection fraction was estimated to be at about 47%. She has been doing relatively well. She has had no significant chest pain until just recently. She has had no significant shortness of breath, but unless she exerts herself. She is still awaiting clearance to undergo her surgical procedure for her ovarian cyst. At this time, she remains relatively stable. Her discomfort has resolved. For her past medical history, social history, family history, review of systems, medications, and allergies, please refer the notes dictated by the nurse practitioner. PHYSICAL EXAMINATION: GENERAL: Reveals a middle-aged female who is in no acute distress at this time. She is alert. She is oriented. VITAL SIGNS: Her blood pressure is elevated at 168/90, heart rate is in the 89 to 95 range, it shows a normal sinus rhythm, respiratory rate 18, O2 saturation 93% on room air, and temperature she is afebrile. HEENT: Shows head to be normocephalic and atraumatic. Carotid pulses are present. I did not hear any significant bruits at this time. CHEST: Clear to auscultation without rales, rhonchi, or wheezing. CARDIOVASCULAR: Reveals a regular rhythm. She has a normal S1 and S2. I cannot hear any significant S3 or S4. There were no significant murmurs, heaves, thrills, bruits or rubs. ABDOMEN: Shows obesity with positive bowel sounds. There is no organomegaly or masses noted. EXTREMITIES: Femoral pulses are present. No clubbing, cyanosis, or edema. Pedal pulses are decreased, but appear to be present. NEUROLOGIC: The patient is fully intact. There is no evidence of any focal deficits. SKIN: Warm and dry. PSYCHIATRIC: Psychosocial status is within normal limits. PERTINENT LABORATORY DATA: Sodium of 141, potassium is 3.9, blood sugar was 265, creatinine 0.95. Cardiac enzymes are negative. Her blood sugar is fluctuating, but the last one was 257. IMPRESSION: 1. Middle-aged female with a history of coronary artery disease, angioplasty, stent placement, and bypass surgery, who presents again with chest discomfort. She has a recent stress test which is abnormal. She was advised to undergo cardiac catheterization prior to proceeding with her surgical resection of her ovarian cyst, who most likely will also need to undergo hysterectomy. I will discuss this with the hospitalist to determine whether or not she is a candidate to undergo cardiac catheterization, would make sense while she is here to proceed with a cardiac catheterization since she did have an abnormal stress test and needs to undergo surgical correction of the ovarian cyst. 2. History of diabetes. She is not very well controlled at this time. She is actually seeking an another room manager. 3. History of hypertension. This is under reasonable control. 4. History of tobacco abuse. Unfortunately, she continues to smoke half a pack a day and I have warned her against this on many occasions. She needs absolutely stop smoking. We will be more than happy to continue to follow the patient with you, but will most likely plan for a cardiac catheterization to ensure that her vessels have remained patent, especially in view of her diabetes, hypertension, and her continued tobacco abuse. Job ID: [id number]
[2018-07-07] MEDS ORDERED: Communication Order-Pharmacy FS SCH ×2 (08:45→09:15)
[2018-07-07] MEDS ORDERED: Aspirin 325 MG TAB PO SCH (09:00)
[2018-07-07] MEDS: Carvedilol 6.25 MG TAB PO SCH (10:23)
[2018-07-07] MEDS: Insulin Glargine 25 UNITS in Pre-Filled Syringe SC SCH (10:24)
[2018-07-07] MEDS: HumuLIN 70/30 (300 UNITS/3 ML VIAL) SC SCH ×3 (10:24→17:13)
[2018-07-07] MEDS: Pregabalin 75 MG CAP PO SCH ×2 (10:24→12:55)
[2018-07-07] MEDS: Cyclobenzaprine 10 MG TAB PO SCH ×2 (10:24→12:55)
[2018-07-07] MEDS ORDERED: Iopamidol 370 76% 100 ML VIAL ONE (11:05)
[2018-07-07] MEDS ORDERED: Iopamidol 370 76% 50 ML VIAL FS ONE (11:05)
[2018-07-07] MEDS ORDERED: Midazolam HCl 2 mg/2 ml Vial ONE (11:50)
--- NOTE | 2018-07-07 12:40 | PDOC.CTH ---
Cardiology Progress Note - Subjective No new overnight events. No complaints. - Objective Vital Signs Temp Pulse Resp BP Pulse Ox 07/07/18 07:11 98.2 F 76 16 149/77 H 96 07/07/18 03:23 98.1 F 90 16 151/85 H 93 L Weight 193 lb 11.2 oz 07/06/18 07/07/18 07/08/18 06:59 06:59 06:59 Intake Total 840 Output Total 650 Balance 190 - Physical Examination General/Neuro: alert & oriented x3 Neck: carotid US brisk Lungs: CTA, unlabored respirations Heart: RRR Abdomen: soft - Telemetry Telemetry Rhythm: NSR - Labs Result Diagrams: 07/05/18 23:30 07/07/18 05:02 Troponin/CKMB Troponin I Less than 0.010 ng/mL (< 0.028) 07/06/18 09:50 - Assessment/Plan 1.Chest pain, CAD s/p CABG,s/p stents. Abnormal stress test. Plan for cardiac cath today. Risks and procedure explained to pt. She agrees to proceed. 2. CMY. S/P AICD 3. DM: per primary service. 4. Ovarian cysts, abnormal cervical biopsy. Plan for TAHBSO if the cath does not indicate progression of CAD.
[2018-07-07] MEDS ORDERED: Sodium Chloride 0.9% 200 ML IV PRN (12:53)
[2018-07-07] MEDS ORDERED: Acetaminophen/Codeine 30-300mg Tablet PO PRN ×2 (12:53)
[2018-07-07] MEDS ORDERED: Nitroglycerin 0.4 MG TAB (25 Tab Bottle) SL PRN (12:53)
[2018-07-07 15:52] VITALS: BP 140/81; TEMP 98.6
--- NOTE | 2018-07-08 05:52 | DIS ---
DATE OF ADMISSION: 07/06/2018 DATE OF DISCHARGE: 07/07/2018 DISCHARGING PHYSICIAN: Dr. Tunde Llanes. PRIMARY CARE PHYSICIAN: Dr. Felicitas Kerr. ASSISTANT FRONT DESK MANAGER ON THE CASE: Dr. Taylor, Cardiology. PROCEDURES: Procedures at [facility], status post cardiac cath without any intervention. The patient was advised medical management. DISCHARGE DIAGNOSES: 1. Abnormal echocardiogram as well as stress test, status post cardiac cath without any acute abnormalities. The patient was advised to continue same medical management. 2. Diabetes mellitus type 2, on insulin dependence. 3. Anxiety disorder. 4. History of fibromyalgia. 5. History of congestive heart failure with a defibrillator placement. HOSPITAL COURSE: She is a 57-year-old female, admitted to the Hospitalist Services for complaints of abnormal stress test as well as echocardiogram, was evaluated by Cardiology Services and a cardiac cath was performed to rule out any acute evidence and to clear the patient for surgery. The patient had an abnormal cervical biopsy evaluation in the recent past by her primary welt wheeler. The patient at this point of time has been advised about cardiac cath and medical management to continue same medications without any changes. The patient has been cleared by Cardiology services to proceed with total abdominal hysterectomy with possible salpingo-oophorectomy. The patient also was advised that she had issues with asthma and is obtaining pulmonary clearance from a primary pulmonary physician. On my evaluation and on discharge, the patient was hemodynamically optimized without any complaints of chest pain or shortness of breath. Job ID: [id number]
== END 2018-07-07 18:27 | disposition home or self-care (01) ==
LOC: SCSER 23:15 → 2SW 07-06 01:11 → ERHOLD 07-06 01:18 → 2SW 07-06 15:42
PROVIDERS: ADMIT Internal Medicine; ATTEND Internal Medicine
DX: R07.9 Chest pain, unspecified (principal); I10 Essential (primary) hypertension; E11.9 Type 2 diabetes mellitus without complications; F41.8 Other specified anxiety disorders; F32.9 Major depressive disorder, single episode, unspecified; G47.33 Obstructive sleep apnea (adult) (pediatric); F17.210 Nicotine dependence, cigarettes, uncomplicated; Z79.4 Long term (current) use of insulin; Z79.82 Long term (current) use of aspirin; Z79.899 Other long term (current) drug therapy; Z88.8 Allergy status to other drugs, medicaments and biological substances; Z95.1 Presence of aortocoronary bypass graft
CPT/HCPCS: 36415; 36416; 71045; 71275; 80048; 80053; 82550; 83880; 84484; 85025; 85379; 93005; 93455; 94640; 96374; 99152; 99153; 99406; C1769; G0378; J1815; J1825; J2250; J2270; J7620; Q9967

== ENCOUNTER 2018-08-24 02:08 | Outpatient (CLI) | payer OTHER, SELFPAY ==
[2018-08-24 11:37] LABS: Hemoglobin 16.6 g/dL (12.0-16.0); Mean Corpuscular HGB CONC 33.7 g/dL (32.0-36.0); Mean Corpuscular Hemoglobin 32.2 pg (27.0-31.0); Mean Corpuscular Volume 95.5 fL (78.0-98.0); Platelet Count 394 thou/uL (130-400); RBC Distribution Width 12.4 % (11.5-14.5); Red Blood Cell (RBC) Count 5.15 mill/uL (4.20-5.40); White Blood Cell (WBC) Count 7.2 thou/uL (4.8-10.8)
[2018-08-24 12:01] LABS: ALT (SGPT) 17 U/L (8-55); AST (SGOT) 12 U/L (5-34); Albumin 4.2 g/dL (3.5-5.0); Alkaline Phosphatase 94 U/L (40-150); Anion Gap 16 mmol/L (10-20); BUN (Urea Nitrogen) 19 mg/dL (9.8-20.1); Bilirubin, Direct 0.1 mg/dL (0.1-0.3); Bilirubin, Total 0.2 mg/dL (0.2-1.2); Calc. Creatinine Clearance 0 mL/min (70-130); Calcium 9.5 mg/dL (7.8-10.44); Carbon Dioxide 23 mmol/L (22-29); Chloride 100 mmol/L (98-107); Estimated GFR-MDRD 61; Glucose 260 mg/dL (70-105); Potassium 3.6 mmol/L (3.5-5.1); Protein, Total 7.3 g/dL (6.0-8.3); Sodium 135 mmol/L (136-145)
== END 2018-08-24 02:09 | disposition home or self-care (01) ==
LOC: LABBT 02:08
PROVIDERS: ATTEND Student in an Organized Health Care Education/Training Program
DX: Z01.818 Encounter for other preprocedural examination (principal)
CPT/HCPCS: 80048; 80076; 83036; 85027; 86850; 86900; 86901; 93005; 93010

== ENCOUNTER 2018-08-24 09:30 | Inpatient (IN) | payer OTHER ==
[2018-08-25] MEDS ORDERED: Famotidine/PF 20 mg/2ml Vial ONE ×2 (06:16→06:58)
[2018-08-25] MEDS ORDERED: Gabapentin 300 MG CAP ONE (06:16)
[2018-08-25] MEDS ORDERED: CeleCOXIB 100 MG CAP ONE (06:17)
[2018-08-25] MEDS ORDERED: Heparin 5,000 UNITS/ML VIAL ONE (06:21)
[2018-08-25] MEDS ORDERED: Insulin Regular 300 UNITS/3 ML VIAL ONE (06:41)
[2018-08-25] MEDS ORDERED: Midazolam HCl 2 mg/2 ml Vial ONE (06:50)
[2018-08-25] MEDS ORDERED: Bupivacaine HCl 0.5%/Epinephrine 1:200,000/PF 30 ml Vial ONE (06:54)
[2018-08-25] MEDS ORDERED: Fentanyl 250 MCG/5 ML VIAL ONE (07:17)
[2018-08-25] MEDS ORDERED: Promethazine HCl 25 MG/ML VIAL IM PRN ×2 (09:51→20:12)
[2018-08-25] MEDS ORDERED: Promethazine HCl 25 MG/ML VIAL SLOW IVP PRN (09:51)
[2018-08-25] MEDS ORDERED: Fentanyl 100 MCG/2 ML VIAL ONE ×4 (10:11→16:35)
--- NOTE | 2018-08-25 16:42 | OP ---
DATE OF PROCEDURE: 08/25/2018 PREOPERATIVE DIAGNOSES: 1. Complex atypical hyperplasia. 2. Left complex ovarian cyst. POSTOPERATIVE DIAGNOSIS: Complex atypical hyperplasia. PROCEDURES PERFORMED: Robotic assisted total laparoscopic hysterectomy and bilateral salpingo-oophorectomy. ANESTHESIA: General endotracheal by Dr. Gaffney. BISCUIT MACHINE OPERATOR SURGEON: Xiomy Reyes PA-C ESTIMATED BLOOD LOSS: 100 mL. IVF: 1 L crystalloid. URINE OUTPUT: 120 mL clear urine. DRAINS: Kaiser catheter. PATHOLOGY: Uterus, cervix, bilateral fallopian tubes and ovaries. COMPLICATIONS: None. FINDINGS: Mobile, small uterus sounded to 8 cm. Cervix and uterus were normal appearing as well as were the fallopian tubes and ovaries bilaterally. There was no evidence of malignancy intra-abdominally. Peritoneum was within normal limits. The ureters were noted during the case bilaterally vermiculating. The bladder was intact without any injury on backfilling of the bladder at the conclusion of the procedure, and hemostasis was noted to be excellent on low pressure check and Tisseel was placed. The vaginal mucosa was intact at the conclusion as well. DESCRIPTION OF PROCEDURE: The patient was taken to the operating room, where general anesthesia was obtained without difficulty. The patient was prepped and draped in a sterile fashion in a dorsal lithotomy position. A Kaiser was placed in the bladder. A speculum placed in the vagina. The anterior lip of the cervix was grasped with a single-tooth tenaculum. The uterus then sounded to 8 cm during the sounding, the right uterine cornu was perforated. The JUAN manipulator was assembled with an 8 cm tip and a 4 cm colpotomizer ring. The JUAN was inserted into the uterine fundus. Balloon was inflated. Instruments, tenaculum and speculum were removed out of the vagina and the colpotomizer ring was advanced fit snugly around the cervix and vaginal occluder balloon was inflated. Legs were placed in low lithotomy. Attention was turned to the abdomen. 0.5% Marcaine with epinephrine was infiltrated into the umbilicus and a 12 mm skin incision was made. The Veress needle was passed to the abdomen, noting an opening pressure of 2 mmHg. Pneumoperitoneum was obtained without difficulty. The 12 mm trocar was passed into the abdomen and confirmed placement with the robotic camera. Trendelenburg was obtained. Right and left lower quadrant 8 mm robotic trocars were placed under direct visualization after infiltrating with anesthetic. An 11 mm right upper quadrant urology physician assistant port was also placed under direct visualization after infiltrating with anesthetic. The robot was then docked. The right robotic arm contained monopolar scissors, the left robotic arm contained a fenestrated bipolar. The left fallopian tube was grasped and elevated and the ureter was noted crossing the pelvic brim medially. The IP ligament was clamped with the fenestrated cauterized and then transected with the scissors and this was taken down the mesovarium cauterizing with the fenestrated bipolar and transecting with the scissors on cautery. The round ligament was then grasped in the midportion, cauterized and then transected, which opened up the anterior and posterior leaf of the broad ligament. The posterior leaf of the broad ligament was incised down to the level of the uterine vessels. There was some oozing from the uterine vein during this process and cautery was performed. Oozing continued. Therefore, the anterior leaf of the broad ligament was taken down to the level of the bladder flap to access the vessels in a more secure manner and following this, hemostasis was achieved with the fenestrated. The vesicouterine peritoneum was incised undermining with the fenestrated to ensure clear window and the pubocervical fascia was incised on to dissect the bladder adventitia down below the level of the colpotomizer ring. Attention was turned to the right side, where the right fallopian tube was grasped and elevated. The IP ligament was clamped and cauterized after identifying the ureter running medially. The IP ligament was incised and clamped. Cautery transection was taken down the mesovarium to the round ligament, that was incised in the midportion. The posterior leaf of the broad ligament was dropped down by doing blunt dissection and also incising sharply with the scissors down to the level of the uterosacral. The ureter was again noted under direct visualization after the posterior leaf was dropped down, the anterior leaf was incised with the scissors and the vessels were skeletonized. The bladder flap was further developed on this side as well. Ensuring all the adventitial fibers were taken down adequately, hemostasis was achieved at bladder pillars with the fenestrated. The left uterine pedicle was cauterized multiple times and transected as was the right and hemostasis was achieved adequately with the fenestrated. Anterior colpotomy was then performed and carried around posteriorly that completed the colpotomy. The uterus was then placed into the vagina, where hemostasis was achieved of the vaginal cuff with fenestrated. The scissors were traded out for the needle hearse driver. A 2-0 STRATAFIX barbed suture was used to close the vaginal mucosa in a running fashion, incorporating the mucosa, anterior and posterior bites and incorporating the posterior peritoneum and this was run back for a second layer and hemostasis was noted to be excellent. The bladder was then bluntly taken down even a little further. Backfilling of the bladder noted no extravasation of saline or any gross bladder injury and this was decompressed. Suction irrigation was performed copiously. The needle was removed out of the abdomen and low pressure check was performed and hemostasis was noted to be excellent. Tisseel was then placed over the operative site and all instruments were removed out of the abdomen. The robot was then undocked. The fascia of the umbilical port was closed with a 0 Vicryl in a [id number] fashion. The skin was closed with 4-0 Monocryl in a subcuticular fashion. Dermabond was applied. The vaginal mucosa was examined and noted to be intact with no laceration. The patient tolerated the procedure well. Sponge and needle counts were correct x2. The patient was taken to recovery room in stable condition. The patient received Ancef 2 g prior to the procedure. Job ID: [id number]
[2018-08-25] MEDS ORDERED: Ketorolac Tromethamine 30 MG/ML VIAL ONE (18:36)
[2018-08-25] MEDS ORDERED: Insulin Regular 300 UNITS/3 ML VIAL SC PRN (20:12)
[2018-08-25] MEDS ORDERED: ALPRAZolam 0.5 MG TAB PO PRN (20:12)
[2018-08-25] MEDS ORDERED: Dextrose 50% Abboject 50 ML SYRINGE SLOW IVP PRN (20:12)
[2018-08-25] MEDS ORDERED: Simethicone Chewable 80 MG TAB PO PRN (20:12)
[2018-08-25] MEDS ORDERED: Acetaminophen 1,000 MG in Premix Bag 1 BAG IVPB PRN (20:12)
[2018-08-25] MEDS ORDERED: HYDROcodone/Acetaminophen 5/325 mg Tablet PO PRN (20:12)
[2018-08-25] MEDS ORDERED: Fentanyl 100 MCG/2 ML VIAL SLOW IVP PRN (20:12)
[2018-08-25] MEDS ORDERED: Zolpidem Tartrate 5 MG TAB PO PRN (20:12)
[2018-08-25] MEDS ORDERED: Bisacodyl 10 MG SUPP PR PRN (20:12)
[2018-08-25] MEDS ORDERED: Dextrose 5% in Water 1,000 ML IV PRN (20:12)
[2018-08-25] MEDS ORDERED: Nystatin Powder 15 GM BOT TOP PRN (20:12)
[2018-08-25] MEDS ORDERED: diphenhydrAMINE 25 MG CAP PO PRN (20:12)
[2018-08-25] MEDS: Carvedilol 6.25 MG TAB PO SCH (20:13)
[2018-08-25] MEDS: Ketorolac Tromethamine 30 MG/ML VIAL IVP SCH ×2 (21:21→23:45)
[2018-08-25] MEDS: Pregabalin 75 MG CAP PO SCH ×2 (21:22→21:33)
[2018-08-25] MEDS: Baclofen 10 MG TAB PO SCH (21:33)
[2018-08-25] MEDS: Gabapentin 300 MG CAP PO SCH (21:33)
[2018-08-25] MEDS: Famotidine 20 MG TAB PO SCH (21:33)
[2018-08-25] MEDS: Sodium Chloride 0.9% 1,000 ML IV SCH (21:34)
[2018-08-25] MEDS: Bacitracin Zinc 1 Packet TOP SCH (21:34)
[2018-08-25] MEDS: HYDROcodone/Acetaminophen 5/325 mg Tablet PO PRN (21:37)
[2018-08-25 23:01] VITALS: BMI 35.4
[2018-08-26 05:41] LABS: Hemoglobin 14.7 g/dL (12.0-16.0); Mean Corpuscular HGB CONC 32.2 g/dL (32.0-36.0); Mean Corpuscular Hemoglobin 32.1 pg (27.0-31.0); Mean Corpuscular Volume 99.6 fL (78.0-98.0); Mean Platelet Volume 6.8 fL (7.4-10.4); Platelet Count 279 thou/uL (130-400); RBC Distribution Width 12.6 % (11.5-14.5); Red Blood Cell (RBC) Count 4.58 mill/uL (4.20-5.40); White Blood Cell (WBC) Count 7.2 thou/uL (4.8-10.8)
[2018-08-26] MEDS: Ketorolac Tromethamine 30 MG/ML VIAL IVP SCH ×4 (05:45→23:34)
[2018-08-26] MEDS: Fluconazole 100 MG TAB PO SCH (08:41)
[2018-08-26] MEDS: Baclofen 10 MG TAB PO SCH ×2 (08:41→20:02)
[2018-08-26] MEDS: Gabapentin 300 MG CAP PO SCH ×2 (08:43→20:02)
[2018-08-26] MEDS: Famotidine 20 MG TAB PO SCH ×2 (08:43→20:03)
[2018-08-26] MEDS: Carvedilol 6.25 MG TAB PO SCH ×2 (08:43→16:43)
[2018-08-26] MEDS: Bacitracin Zinc 1 Packet TOP SCH ×3 (08:43→20:02)
[2018-08-26] MEDS: Pregabalin 75 MG CAP PO SCH ×3 (08:44→20:02)
[2018-08-26] MEDS: Enoxaparin Sodium 40 MG/0.4 ML SYRINGE SC SCH (08:44)
[2018-08-26] MEDS: Furosemide 20 MG TAB PO SCH (08:44)
[2018-08-26] MEDS: Sodium Chloride 0.9% 1,000 ML IV SCH (08:45)
[2018-08-26] MEDS ORDERED: Dextrose 5% in Water 1,000 ML IV PRN (08:52)
[2018-08-26] MEDS ORDERED: Insulin Regular 300 UNITS/3 ML VIAL SC PRN (08:52)
[2018-08-26] MEDS ORDERED: Dextrose 50% Abboject 50 ML SYRINGE SLOW IVP PRN (08:52)
[2018-08-26] MEDS ORDERED: Insulin Glargine 30 UNITS in Pre-Filled Syringe 1 EACH SC SCH (09:00)
--- NOTE | 2018-08-26 09:58 | PDOC.EVN ---
Event Note - Event Note Event Note: Pt seen and evaluated this morning on post op day 1. Pt was up and ambulatory this morning to bath room without difficulty. She is urinating without difficulty. She has been able to eat broth and jello without problem and is ready to eat at this time. She states her pain is very well controlled at this time. She had no vaginal bleeding when she went to urinate this am. She has no shortness of breath but has noted occasional wheeze due to her asthma which she takes duo neb for a home. Only complaint is slight headache which is typical to prior headaches that responded to fioracet. Exam: PT is ambulatory in the room. When sitting in the bed she is very comfortable. She has normal respiratory effort with faint expiratory wheeze on the left. HRR with murmur. No edema in her LEs. Abdomen is soft without distension. Minimal lower tenderness Incisions healing well without dehiscence. Legs and calves non tender without edema. SEC devices in place. Labs: WBC:7.2, HGB: 14.7, HCT: 45.7, PLT: 279, GLUCOSE:243 Plan: Pt doing very well post op day 1. VSS AF, wean O2 Postop- cont po pain meds, DC IV meds, ambulate in hallway. DC IV fluids. IDDM- BS uncontrolled at baseline, HgA1C 9.0, We will restart her home scheduled insulin with low dose SSI this am as well as her heart health ADA diet. CHTN- cont home meds, bp normal CAMPBELL- Fioracet ordered for mild headache. Pulm- duonebs wean O2, Duo nebs prn wheezing Proph- continue lovenox for DVT proph and Pepcid for GI proph Awaiting medicine consultation at this time. We will continue to monitor BS and plan for d/c when better controlled.
[2018-08-26] MEDS: Fioricet 325/50/40 mg Tablet PO PRN ×2 (10:57→20:08)
[2018-08-26] MEDS: Insulin Glargine 30 UNITS in Pre-Filled Syringe 1 EACH SC SCH ×2 (10:57→20:33)
[2018-08-26] MEDS: HumaLOG 300 UNITS/3 ML VIAL SC SCH ×3 (11:05→20:33)
[2018-08-26] MEDS: Ibuprofen 600 MG TAB PO SCH ×2 (12:08→20:02)
[2018-08-26] MEDS: Docusate Calcium (SURFAK) 240 MG CAP PO SCH (20:04)
[2018-08-27] MEDS: Ibuprofen 600 MG TAB PO SCH ×2 (02:44→11:41)
[2018-08-27] MEDS: Fioricet 325/50/40 mg Tablet PO PRN ×2 (03:12→09:38)
[2018-08-27] MEDS: Ketorolac Tromethamine 30 MG/ML VIAL IVP SCH ×2 (05:08→11:46)
[2018-08-27] MEDS: Baclofen 10 MG TAB PO SCH (08:02)
[2018-08-27] MEDS: Fluconazole 100 MG TAB PO SCH (08:02)
[2018-08-27] MEDS: Furosemide 20 MG TAB PO SCH (08:03)
[2018-08-27] MEDS: Carvedilol 6.25 MG TAB PO SCH (08:03)
[2018-08-27] MEDS: Pregabalin 75 MG CAP PO SCH (08:03)
[2018-08-27] MEDS: Famotidine 20 MG TAB PO SCH (08:03)
[2018-08-27] MEDS: Gabapentin 300 MG CAP PO SCH (08:03)
[2018-08-27] MEDS: Bacitracin Zinc 1 Packet TOP SCH (08:04)
[2018-08-27] MEDS: HYDROcodone/Acetaminophen 5/325 mg Tablet PO PRN ×2 (08:04→11:41)
[2018-08-27] MEDS: Enoxaparin Sodium 40 MG/0.4 ML SYRINGE SC SCH (08:05)
[2018-08-27] MEDS: HumaLOG 300 UNITS/3 ML VIAL SC SCH ×2 (08:05→11:42)
[2018-08-27] MEDS: Docusate Calcium (SURFAK) 240 MG CAP PO SCH (08:06)
--- NOTE | 2018-08-27 09:11 | PDOC.EVN ---
Event Note - Event Note Event Note: POD2 S: No complaints, no SOB CP. No VB. Has some burning with urination, +BM yesterday, loose. Darion po, pain controlled. O: VSSAF NAD RRR Decr BS bilaterally, no wheezing Soft/nt/nd/BS+ Inc c/d/i BS: 280 this am, yesterday 180s A: POD2 s/p H BSO with T2DM, CHTN, HLD, CAD P: Postop- doing well, met all milestones, needs to ambulate more frequently. - Check UA/UC, pt had yeast infection at time of surgery, on diflucan, rx for nystatin powder for home use, will also check UA/UC GI- +ROBF, pepcid GI ppx Resp- normal sats, weaned off O2, cont home meds on DC CV- BP normal, Cont home meds Endo- BS uncontrolled, A1C 9.0, pt states they are not bringing her ADA tray and thats why BS is high. Explained need for improved BS control at home to prevent complications. Pt states she will follow diet and check blood sugars at home Dispo- DC home with FU in 2 wk
[2018-08-27] MEDS: Insulin Glargine 30 UNITS in Pre-Filled Syringe 1 EACH SC SCH (09:38)
[2018-08-27 12:26] LABS: Bilirubin Negative (Negative); Blood, Urine Large (Negative); Clarity CLEAR (Clear); Glucose, Urine (Dipstick) 500 mg/dL (Negative); Leukocyte Small (Negative); Nitrite Negative (Negative); Protein, Urine (Dipstick) 30 mg/dL (Neg-Trace); Specific Gravity, Urine 1.024 (1.002-1.036); Urobilinogen 0.2 mg/dL (0.2-1.0)
[2018-08-27 12:28] LABS: Bacteria/HPF None Seen HPF (None Seen); Hyaline Casts/LPF 4-6 HYALINE CAST LPF (0-3 Hyaline); Pathc Cast-AUWi Flag 0.68 (0-2.49); RBC/HPF GREATER THAN 50-TNTC HPF (0-3); Squamous Epithelial 0-3 HPF (0-3); WBC/HPF 21-50 HPF (0-3)
[2018-08-27 12:44] LABS: Transitional Epithelial 0-3 HPF (0-3)
[2018-08-27 12:48] VITALS: BP 132/80; TEMP 97.9
== END 2018-08-27 13:14 | disposition home or self-care (01) | DRG 743 ==
LOC: SURG A 08-25 05:55 → 2NO 08-25 18:25
PROVIDERS: ADMIT Student in an Organized Health Care Education/Training Program; ATTEND Student in an Organized Health Care Education/Training Program
PROC: 0UT94ZZ Resection of Uterus, Percutaneous Endoscopic Approach (ICD-10-PCS; principal; 2018-08-25)
PROC: 0UT74ZZ Resection of Bilateral Fallopian Tubes, Percutaneous Endoscopic Approach (ICD-10-PCS; 2018-08-25)
PROC: 0UT24ZZ Resection of Bilateral Ovaries, Percutaneous Endoscopic Approach (ICD-10-PCS; 2018-08-25)
PROC: 8E0W4CZ Robotic Assisted Procedure of Trunk Region, Percutaneous Endoscopic Approach (ICD-10-PCS; 2018-08-25)
DX: N85.00 Endometrial hyperplasia, unspecified (principal); N83.292 Other ovarian cyst, left side; Z95.1 Presence of aortocoronary bypass graft; Z90.49 Acquired absence of other specified parts of digestive tract; Z98.51 Tubal ligation status; Z95.810 Presence of automatic (implantable) cardiac defibrillator
CPT/HCPCS: 36415; 36416; 81003; 81015; 85027; 87086; 88307; 88309; J0131; J0670; J0690; J1642; J1644; J1650; J1815; J1825; J1885; J2250; J2550; J3010; S0028

== ENCOUNTER 2018-09-08 02:09 | Emergency (ER) | payer SELFPAY ==
[2018-09-08] MEDS ORDERED: Morphine 4 MG/ML VIAL ONE (02:44)
[2018-09-08] MEDS ORDERED: Promethazine HCl 25 MG/ML VIAL ONE (02:44)
[2018-09-08 02:58] LABS: Hemoglobin 14.5 g/dL (12.0-16.0); Lymphocytes 21 % (21-51); MDiff Complete? YES; Mean Corpuscular HGB CONC 34.4 g/dL (32.0-36.0); Mean Corpuscular Hemoglobin 32.8 pg (27.0-31.0); Mean Corpuscular Volume 95.4 fL (78.0-98.0); Mean Platelet Volume 6.6 fL (7.4-10.4); Monocytes 12 % (0-10); Neutrophil 67 % (42-75); Platelet Count 355 thou/uL (130-400); RBC Distribution Width 12.6 % (11.5-14.5); Red Blood Cell (RBC) Count 4.42 mill/uL (4.20-5.40); White Blood Cell (WBC) Count 7.8 thou/uL (4.8-10.8)
[2018-09-08 03:00] LABS: ALT (SGPT) 15 U/L (8-55); AST (SGOT) 12 U/L (5-34); Albumin 3.7 g/dL (3.5-5.0); Alkaline Phosphatase 103 U/L (40-150); Anion Gap 16 mmol/L (10-20); BUN (Urea Nitrogen) 14 mg/dL (9.8-20.1); Bilirubin, Total 0.3 mg/dL (0.2-1.2); Calc. Creatinine Clearance 0 mL/min (70-130); Calcium 9.5 mg/dL (7.8-10.44); Carbon Dioxide 27 mmol/L (22-29); Chloride 102 mmol/L (98-107); Estimated GFR-MDRD 75; Globulin 3.5 g/dL (2.4-3.5); Glucose 211 mg/dL (70-105); Potassium 3.5 mmol/L (3.5-5.1); Protein, Total 7.2 g/dL (6.0-8.3); Sodium 141 mmol/L (136-145)
--- NOTE | 2018-09-08 08:47 | CT ---
PRELIMINARY REPORT/[facility]/EMERGENTY AFTER-HOURS PROCEDURE CT Abdomen and Pelvis Without Contrast EXAM DATE/TIME: 09/08/2018 2:51 AM CLINICAL HISTORY: 57 years old, female; Abdominal pain; Prior surgery; Surgery date: <1 month; Surgery type: Hysterecto my 2 weeks ago; Patient HX: Left flank pain and UTI symptoms. Hs of kidney stones. Hs of jesse and hy st. TECHNIQUE: Imaging protocol: Axial computed tomography images of the abdomen and pelvis without contrast. Narvaez l reformatted images were created and reviewed. Radiation optimization: All CT scans at this facility use at least one of these dose optimization verenice hniques: automated exposure control; mA and/or kV adjustment per patient size (includes targeted exam s where dose is matched to clinical indication); or iterative reconstruction. COMPARISON: No relevant prior studies available. FINDINGS: Tubes, catheters and devices: Intracardiac pacing leads are noted. Lungs: The visualized portions of the lung bases are normal. ABDOMEN: Liver: The liver is within normal limits for this noncontrast study. Gallbladder and bile ducts: There has been a cholecystectomy. Pancreas: The pancreas appears normal. No ductal dilatation. Spleen: The spleen is normal. Adrenals: The adrenal glands are normal. Kidneys and ureters: No RIGHT hydronephrosis. There is mild LEFT hydroureteronephrosis and perinephri c stranding. No obstructing LEFT ureteral calculus demonstrated at this time. There are large bilater al renal pelvic calculi. Stomach and bowel: The stomach is normal. The duodenum is unremarkable. Appendix: No evidence of appendicitis. PELVIS: Bladder: There is nonspecific bladder wall thickening and stranding. This may be related to incomplet e distention or cystitis. Reproductive: The uterus is not visualized, and may be atrophic or surgically absent. ABDOMEN and PELVIS: Intraperitoneal space: Normal. No free air. No significant fluid collection. Bones/joints: No acute fracture. No dislocation. Soft tissues: Unremarkable. Vasculature: The vasculature demonstrates diffuse mild atherosclerotic calcification. Lymph nodes: Normal. No enlarged lymph nodes. IMPRESSION: 1. There is mild LEFT hydroureteronephrosis and perinephric stranding. No obstructing LEFT ureteral c alculus demonstrated at this time. Infection is possible. 2. There are large bilateral renal pelvic calculi. 3. There is nonspecific bladder wall thickening and stranding. This may be related to incomplete dist ention or cystitis. Correlation with urinalysis is advised. Thank you for allowing us to participate in the care of your patient. Dictated and Authenticated by: Dion Galvan MD 09/08/2018 4:18 AM Central Time ([place] & [place]) CT ABDOMEN AND PELVIS: 09/08/2018 0301 HOURS HISTORY: Performed on an emergency basis. Left flank pain. Stones. COMPARISON: 02/09/2014 FINDINGS: I agree with the preliminary report by Dr. Galvan from [facility]. Mild left hydroureteronephrosis and perinephric fat stranding. No stones are apparent within the lef t ureter. No stones within the bladder. Clinical correlation regarding other signs and symptoms of left is required. Multiple large, nonobstructing bilateral renal calculi. Lack of contrast limits evaluation for other abnormalities. POS: TPC
== END 2018-09-08 04:42 | disposition home or self-care (01) ==
LOC: SCSER 02:09
DX: N12 Tubulo-interstitial nephritis, not specified as acute or chronic (principal); I25.10 Atherosclerotic heart disease of native coronary artery without angina pectoris; I11.0 Hypertensive heart disease with heart failure; I50.9 Heart failure, unspecified; I25.2 Old myocardial infarction; F41.9 Anxiety disorder, unspecified; F32.9 Major depressive disorder, single episode, unspecified; F17.210 Nicotine dependence, cigarettes, uncomplicated; Z79.4 Long term (current) use of insulin; Z79.899 Other long term (current) drug therapy; Z79.891 Long term (current) use of opiate analgesic
CPT/HCPCS: 74176; 80053; 84484; 85025; 93005; 96365; 96375; J2270; J2550

== ENCOUNTER 2018-09-28 19:45 | Inpatient (IN) | payer SELFPAY ==
[2018-09-28 20:18] LABS: Bilirubin Negative (Negative); Blood, Urine Trace (Negative); Clarity Slightly Cloudy (Clear); Glucose, Urine (Dipstick) Negative (Negative); Leukocyte Large (Negative); Nitrite Negative (Negative); Protein, Urine (Dipstick) 30 mg/dL (Neg-Trace); Urobilinogen 0.2 mg/dL (0.2-1.0); pH, Urine 5.5 (5.0-9.0)
[2018-09-28 20:20] LABS: RBC/HPF 0-3 HPF (0-3)
[2018-09-28 20:21] LABS: Bacteria/HPF Rare-Few HPF (None Seen); Hyaline Casts/LPF NONE SEEN LPF (0-3 Hyaline); Other Microscopic Description Less than 2 mL rec'd; Squamous Epithelial None Seen HPF (0-3)
[2018-09-28 20:22] LABS: #Basophils 0.1 thou/uL (0.0-0.2); #Eosinphils 0.1 thou/uL (0.0-0.7); #Lymphocytes 2.1 thou/uL (1.20-3.40); #Monocytes 0.7 thou/uL (0.11-0.59); #Neutrophils 3.4 thou/uL (1.40-6.50); %Basophils 0.9 % (0.0-1.0); %Lymphocytes 33.3 % (21.0-51.0); %Monocytes 11.5 % (0.0-10.0); %Neutrophils 52.4 % (42.0-75.0); Hemoglobin 15.2 g/dL (12.0-16.0); Mean Corpuscular HGB CONC 34.3 g/dL (32.0-36.0); Mean Corpuscular Hemoglobin 32.1 pg (27.0-31.0); Mean Corpuscular Volume 93.6 fL (78.0-98.0); Mean Platelet Volume 6.8 fL (7.4-10.4); Platelet Count 336 thou/uL (130-400); RBC Distribution Width 12.7 % (11.5-14.5); Red Blood Cell (RBC) Count 4.75 mill/uL (4.20-5.40); White Blood Cell (WBC) Count 6.4 thou/uL (4.8-10.8)
[2018-09-28] MEDS ORDERED: Ketorolac Tromethamine 30 MG/ML VIAL ONE (20:27)
[2018-09-28 20:38] LABS: ALT (SGPT) 28 U/L (8-55); AST (SGOT) 14 U/L (5-34); Albumin 3.9 g/dL (3.5-5.0); Alkaline Phosphatase 124 U/L (40-150); Anion Gap 16 mmol/L (10-20); BUN (Urea Nitrogen) 20 mg/dL (9.8-20.1); Bilirubin, Total 0.2 mg/dL (0.2-1.2); CK (CPK) 97 U/L (29-168); Calc. Creatinine Clearance 0 mL/min (70-130); Calcium 9.9 mg/dL (7.8-10.44); Carbon Dioxide 25 mmol/L (22-29); Chloride 103 mmol/L (98-107); Estimated GFR-MDRD 52; Globulin 3.5 g/dL (2.4-3.5); Glucose 255 mg/dL (70-105); Lipase 23 U/L (8-78); Potassium 4.4 mmol/L (3.5-5.1); Protein, Total 7.4 g/dL (6.0-8.3); Sodium 140 mmol/L (136-145)
--- NOTE | 2018-09-28 20:55 | CT ---
CT Stone Protocol 09/28/2018 8:11 PM HISTORY: Increased flank pain. History of kidney stones. COMPARISON: 09/08/2018 Technique: Multiple contiguous axial CT images are obtained through the abdomen and pelvis without IV contrast. Coronal reformats are provided. FINDINGS: This examination is limited for the evaluation of solid organs and vascular structures due to the lac k of intravenous contrast. Lower Chest: Partial visualization of an AICD lead as well as median sternotomy wires. Visualized shima g bases are clear. Abdomen: Liver: within normal limits. Gallbladder: Postcholecystectomy changes again present. Pancreas: within normal limits. Spleen: within normal limits. Adrenals: within normal limits. Kidneys: Nonobstructing inferior pole right renal calculi are again seen and similar to prior exam. L eft renal calculi are also again seen with largest calculus in the left renal pelvis measuring 19 mm x 13 mm in axial dimensions. There is minimal hydronephrosis involving the superior pole left denice l collecting system. Ureters: No ureteral calculus is seen.. Pelvis: Urinary bladder: within normal limits. Reproductive Organs: Evidence of hysterectomy. Lymph Nodes: No enlarged lymph nodes. Bowel: Small amount of retained fecal material is seen in the colon. Loops of small bowel are normal in caliber. Appendix: The appendix is normal in caliber. Peritoneum: No free fluid, free air, or fluid collection. Retroperitoneum: within normal limits. Vessels: Vascular calcifications are again seen in the abdominal aorta and iliac arteries.. Abdominal Wall: Minimal areas of stranding is seen in the anterior abdominal wall which may be relate d to sites of prior injection. Clinical correlation suggested. 6 Bones: Degenerative changes are again seen in the spine. Very minimal sclerosis and lucency is seen w ithin the superomedial aspect of each humeral head which could be related to very early osteonecrosis. IMPRESSION: 1. Stable nonobstructing right renal calculi with stable left renal calculi. Minimal left hydronephro sis is seen involving the superior pole left renal collecting system similar to prior study. Mild prominence of the left ureter is also present and unchanged compared to the prior study. No ureteral calculi are seen bilaterally. 2. 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
--- NOTE | 2018-09-28 21:24 | RAD ---
AP VIEW CHEST: 09/28/2018 HISTORY: Chest pain. COMPARISON: 07/05/2018 FINDINGS: AP view chest demonstrates sternotomy wires seen. There is an intracardiac defibrillator. The radio graph is less than optimal due to the underpenetrated nature of the film. I cannot evaluate the left retrocardiac region, including possible left-sided effusion. Correlate with PA and lateral views of the chest to better evaluate the lung parenchyma or consider obtaining a higher penetrated radiograp h with better technique, in the radiology department, rather than on a portable unit. POS: FFK
[2018-09-28] MEDS ORDERED: Sodium Chloride 0.9% 100 ML ONE (23:05)
[2018-09-28] MEDS ORDERED: cefTRIAXone\\ROCEPHIN 2 GM VIAL ONE (23:05)
[2018-09-29 00:01] VITALS: BMI 34.3
[2018-09-29] MEDS ORDERED: Sodium Chloride 0.9% 1,000 ML IV SCH ×2 (00:02→00:15)
[2018-09-29] MEDS ORDERED: Ondansetron ODT 4 MG TAB SL PRN (00:02)
[2018-09-29] MEDS ORDERED: Acetaminophen 325 MG TAB PO PRN (00:02)
[2018-09-29] MEDS ORDERED: Ondansetron PF 4 MG/2 ML Vial IVP PRN (00:02)
[2018-09-29] MEDS ORDERED: Promethazine HCl 25 MG/ML VIAL IM/IV PRN (00:12)
[2018-09-29] MEDS ORDERED: Ketorolac Tromethamine 30 MG/ML VIAL IVP PRN (00:14)
[2018-09-29] MEDS ORDERED: ALPRAZolam 0.25 MG TAB PO PRN (01:14)
[2018-09-29] MEDS ORDERED: Carvedilol 6.25 MG TAB PO SCH ×2 (01:30→09:00)
[2018-09-29] MEDS ORDERED: Promethazine 25 MG TAB PO SCH ×2 (01:30→09:00)
[2018-09-29] MEDS: Metoclopramide HCl 10 MG TAB PO PRN ×2 (01:33→09:33)
[2018-09-29] MEDS ORDERED: Fioricet 325/50/40 mg Tablet PO SCH (06:00)
[2018-09-29] MEDS ORDERED: Non-Formulary Item 1 EACH (Levemir Flexpen [Levemir Flexpen] 30 UNITS) SC SCH (09:00)
[2018-09-29] MEDS ORDERED: Insulin Glargine 30 UNITS in Pre-Filled Syringe 1 EACH SC SCH (09:00)
[2018-09-29] MEDS ORDERED: Furosemide 20 MG TAB PO SCH (09:00)
[2018-09-29] MEDS ORDERED: Lisinopril 5 MG TAB PO SCH (09:00)
[2018-09-29 11:35] VITALS: BP 112/62; TEMP 96.6
[2018-09-29 11:47] LABS: Anion Gap 11 mmol/L (10-20); BUN (Urea Nitrogen) 17 mg/dL (9.8-20.1); Calc. Creatinine Clearance 113 mL/min (70-130); Calcium 8.9 mg/dL (7.8-10.44); Carbon Dioxide 29 mmol/L (22-29); Chloride 103 mmol/L (98-107); Estimated GFR-MDRD 81; Glucose 248 mg/dL (70-105); Potassium 3.9 mmol/L (3.5-5.1); Sodium 139 mmol/L (136-145)
--- NOTE | 2018-09-29 11:58 | HP ---
PRIMARY CARE PHYSICIAN: Felicitas Kerr MD CHIEF COMPLAINT: Left severe flank pain. HISTORY OF PRESENT ILLNESS: A 57-year-old female with known history of coronary artery disease, status post CABG; nephrolithiasis, status post lithotripsy and recent hysterectomy, who presented to the emergency room due to severe left flank pain. The patient reported acute onset of left-sided severe flank pain in the last few days, associated with nausea and vomiting as well as subjective fever and generalized ill feeling. The patient recently was started on antibiotics by PCP due to dysuria and cloudy urine for possible urinary tract infection prior to presentation to the hospital. Flank pain was rated at 10/10 on presentation. Evaluation in the ED with CT scan showed large left renal pelvis stone with associated mild hydronephrosis. The patient was treated with analgesic as well as antibiotics and IV fluid, and admitted to the hospital for further evaluation and treatment. PAST MEDICAL HISTORY: 1. Type 2 diabetes, on insulin. 2. Coronary artery disease, status post CABG. 3. Chronic congestive heart failure. 4. Nephrolithiasis. 5. Ischemic cardiomyopathy, status post AICD placement. 6. Fibromyalgia. 7. Chronic headache syndrome. 8. Obstructive sleep apnea. 9. Hypertension. 10. Depression. 11. Asthma. 12. Chronic tobacco abuse disorder. PAST SURGICAL HISTORY: 1. AICD placement. 2. Percutaneous coronary intervention. 3. Oral surgery. 4. Cholecystectomy. 5. Bilateral corneal transplant. 6. Coronary artery bypass graft. 7. Hysterectomy. FAMILY HISTORY: Reviewed, but noncontributory. SOCIAL HISTORY: The patient continues to smoke about half a pack of cigarettes per day. Denied alcohol or recreational drug use. The patient's son, Sonu is the surrogate decision maker. ALLERGIES: 1. MONTELUKAST. 2. ONDANSETRON. 3. RANITIDINE. 4. TIZANIDINE. HOME MEDICATIONS: 1. Nitroglycerin 0.4 mg sublingual q.5 p.r.n. for chest pain. 2. Fioricet 1 tablet q.6 p.r.n. for headache. 3. Lipitor 80 mg p.o. daily at bedtime. 4. Carvedilol 12.5 mg p.o. b.i.d. 5. Ciprofloxacin 500 mg p.o. b.i.d. 6. Flexeril 10 mg p.o. t.i.d. 7. Breo Ellipta 100 mcg/25 mcg 1 inhalation daily. 8. Furosemide 20 mg p.o. b.i.d. 9. 70/30 insulin 10 units subcutaneously q.i.d. with meals. 10. Levemir 30 units subcutaneously b.i.d. 11. Lisinopril 5 mg p.o. daily. 12. Multivitamin one tablet p.o. daily. 13. Potassium gluconate 595 mg p.o. daily. 14. Pregabalin 75 mg capsules, 2 capsules p.o. daily at bedtime. 15. Lyrica 75 mg p.o. daily. 16. Phenergan 25 mg p.o. b.i.d. 17. Zoloft 100 mg p.o. daily at bedtime. 18. Flomax 0.4 mg p.o. daily. 19. CoQ10 100 mg p.o. daily at bedtime. 20. Aspirin 325 mg p.o. daily. 21. Ibuprofen 600 mg q.8 p.r.n. 22. Albuterol 2 puffs inhalation q.6 p.r.n. for shortness of breath. 23. Mucinex 1200 mg p.o. b.i.d. p.r.n. for cough and congestion. 24. Xanax 0.5 mg p.o. b.i.d. p.r.n. for anxiety. 25. Breckenridge 5/325 one tablet p.o. b.i.d. p.r.n. for pain. 26. DuoNeb 3 mL nebulization q.i.d. p.r.n. for shortness of breath. 27. Metoclopramide 10 mg p.o. q.6 p.r.n. 28. Valerian root 500 mg capsule p.r.n. at bedtime. REVIEW OF SYSTEMS: Twelve-point review of systems performed was negative other than pertinent positives and negatives included in the history of present illness. PHYSICAL EXAMINATION: VITAL SIGNS: Temperature 97.7, pulse 91, respiratory rate 16, SpO2 of 92% on room air, blood pressure 126/80. GENERAL: Middle-aged female, in no obvious distress. Afebrile. Anicteric. Acyanotic. HEENT: Normocephalic, atraumatic. Pupils are equal and reacting to light. Oral mucosa is moist. NECK: Supple, nontender with full range of motion. No obvious masses appreciated. RESPIRATORY: Fair air entry bilaterally with some transmitted sounds. Expiration is mildly prolonged. No use of accessory muscles. CARDIOVASCULAR: Regular rhythm and rate with normal heart sounds 1 and 2. GI: Obese, soft, nontender, nondistended with normal bowel sounds. Mild left CVA tenderness appreciated. EXTREMITIES: Grossly normal looking atraumatic with no obvious edema, erythema , or cyanosis. Distal pulses are palpable. NEUROLOGIC: Conscious and alert oriented x3 with appropriate mental status. Cranial nerves 2 through 12 are intact. The patient moves all extremities. DIAGNOSTIC DATA: CBC showed WBC count of 6.4, hemoglobin of 15.2, MCV of 92.6, platelet of 336. CMP performed on September 28, 2018, showed sodium 140, potassium 4.4, chloride 103, CO2 of 25, anion gap 16, BUN 20, creatinine 1.08, glucose 255, calcium 9.9, total bilirubin 0.2, AST 14, ALT 28, alkaline phosphatase 124, CK 97, total protein 7.4, albumin 3.9, globulin 3.5. Lipase 23. Cardiac markers showed total troponin 0.015, CK 97. Urinalysis done on presentation on September 28, 2018, showed slightly cloudy yellow urine with pH of 5.5, specific gravity of 1.02, positive protein and trace blood. Of note, glucose, ketones, nitrite, bilirubin were negative. Leukocyte esterase was large. Microscopy showed 0 to 3 rbc and 11 to 20 wbc. IMAGING STUDIES: EKG showed normal sinus rhythm with rate of 96 with no acute ischemic changes. CT scan of abdomen and pelvis, stone protocol, showed nonobstructing inferior right pole renal stone, which was similar to prior exam as well as left renal calculi with largest stone in the left renal pelvis measuring 19 x 13 mm. There is associated minimal hydronephrosis on the left side. ASSESSMENT: 1. Bilateral nephrolithiasis with large left renal stone with hydronephrosis. 2. Urinary tract infection, on treatment. 3. Severe left flank pain: Due to nephrolithiasis. 4. Chronic congestive heart failure, stable. 5. Type 2 diabetes mellitus with hyperglycemia. 6. Asthma with no acute exacerbation. 7. Obstructive sleep apnea, on continuous positive airway pressure. 8. Ischemic cardiomyopathy, status post automatic implantable cardioverter-defibrillator placement. PLAN: 1. We will continue IV antibiotics while awaiting urine culture. 2. We will consult urologist for further evaluation and possible intervention to the obstructing renal stone. 3. Analgesic as needed. 4. We will continue insulin therapy. 5. Analgesic as needed will be provided as well. We will continue IV fluids and monitor renal function. Antiemetics as needed will be provided. 6. Code status full. The patient's son is the surrogate decision maker. Job ID: [id number] [facility]
--- NOTE | 2018-09-29 19:22 | CON ---
DATE OF CONSULTATION: 09/29/2018 PRIMARY CARE PHYSICIAN: Dr. Kerr. REASON FOR CONSULT: History of left flank pain. NOTE: PT LEFT AMA after being seen HISTORY OF PRESENT ILLNESS: Ms. Ramsay is a 57-year-old obese female with history of coronary artery disease, diabetes, and history of kidney stones, who was admitted for left-sided flank pain. The patient states that she has had left flank lower back pain for the last few years. She states that she underwent a hysterectomy a few months ago as they felt that this was due to her uterus by history. She states that despite hysterectomy, which was performed on August 25, [address] Valderrama. She has had persistent left lower quadrant flank pain. Subsequently, the pathology demonstrates endometrial cancer when she has followup at [facility]. Per review of chart, she underwent hysterectomy secondary to complex atypical hyperplasia with complex ovarian cyst. She is admitted as she has been presented with multiple CTs in the past demonstrating bilateral renal calculi. Review of chart demonstrates she has had bilateral renal calculi dating back to January 2014. Subsequent review of records demonstrate back in 2007, she did undergo a left stent, a stone treatment in 2007 by ok. However, these records are not available. She states that she has subsequently passed tiny fragments; however, presented to the emergency room due to left flank pain. Currently, per nursing staff, the patient has had minimal discomfort, occasional nausea, which resolves with diet. She denies fever, gross hematuria, or chills. PAST MEDICAL HISTORY: Includes type 2 diabetes on insulin, coronary artery disease, congestive heart failure, history of urolithiasis, ischemic cardiomyopathy status post AICD, fibromyalgia, chronic headache, obstructive sleep apnea, hypertension , depression, asthma, and chronic tobacco abuse, continues to smoke. Also, right endometrial cancer, pathologic T1b. PAST SURGICAL HISTORY: Remote history of left stent, stone treatment 2007 AICD , PTCA of her coronary arteries, oral surgery, cholecystectomy, bilateral corneal transplant, coronary artery bypass graft, robotic assisted total hysterectomy, and bilateral salpingo-oophorectomy by Dr. Valderrama. FAMILY HISTORY: Negative. SOCIAL HISTORY: She lives. She is a , has a roommate, continues to smoke. Surrogate decision maker is her son's son. ALLERGIES: TO MONTELUKAST, ZOFRAN, RANITIDINE, AND TIZANIDINE. HOME MEDICATIONS: Home medications include; 1. Nitroglycerin 0.4 mg sublingual. 2. Fioricet. 3. Lipitor. 4. Carvedilol. 5. Ciprofloxacin 500 b.i.d. 6. Flexeril. 7. Breo. 8. Lasix 20 mg b.i.d. 9. 70/30 insulin. 10. Levemir. 11. Lisinopril. 12. Potassium gluconate. 13. Pregabalin. 14. Lyrica. 15. Phenergan. 16. Zoloft. 17. Flomax. 18. Aspirin 325 mg. 19. Ibuprofen 600 mg every 8 hours. 20. Albuterol. 21. Mucinex. 22. Xanax. 23. [place]blank 5/325. 24. DuoNeb. 25. Reglan. REVIEW OF SYSTEMS: A 10-point review of systems as above. CURRENT MEDICATIONS: Include; 1. Fioricet. 2. DuoNeb. 3. Xanax. 4. Coreg. 5. Rocephin. 6. Lasix. 7. Insulin. 8. Reglan. 9. Phenergan. PHYSICAL EXAMINATION: VITAL SIGNS: Her vital signs are stable. She is afebrile 96, 82, 18, 95, 112/ 62. GENERAL: The patient appears to be in no acute distress. HEENT: Unremarkable. HEART: Regular rate. LUNGS: Distant. ABDOMEN: Obese, protuberant, and globular. No significant CVA tenderness is appreciated on physical exam. : Grossly unremarkable. Atrophic vaginitis with no significant prolapse. EXTREMITIES: No cyanosis, clubbing, or edema. NEUROLOGIC: No gross focal deficits. No NEURO: Focal deficits. PERTINENT LABORATORY AND IMAGING DATA: White count is 6. Creatinine 0.74. Hemoglobin 15 and platelet 236. UA culture preliminary negative. UA demonstrates 30 protein, 11 to 20 wbc's, 0 to 3 rbc's, rare bacteria. Hemoglobin A1c is 9.[address] of the abdomen and pelvis stone protocol, which I reviewed myself dating September 28, 2018, demonstrates right lower pole renal stone measuring 1.6 cm x 1.1, left renal pelvic stone measuring 1.9 x 1.3 x 1.6 cm, left lower pole stone 9 mm. There is no evidence of right hydronephrosis. There is minimal hydronephrosis of the left upper collecting system. These stones are present back in CT from January 2014 which is similar in size. IMPRESSION AND PLAN: Ms. Ramsay is a 57-year-old female with history of multiple comorbidities number of these. 1. Coronary artery disease status post coronary artery bypass grafting. 2. Congestive heart failure. 3. History of diabetes. 4. History of endometrial cancer, status post robotic hysterectomy, presents with 5.recurrent kidney stone with some bilateral renal calculi stone burden as above. She has mild left hydronephrosis. She does have significant stone burden that warrants treatment. I would prefer the patient to be approach with percutaneous access; however, her last full-dose aspirin and Motrin was on September 23, moreover recently provided Toradol. As such, we discussed options of ureteral stent. Pending cardiac clearance to proceed, if the patient is cleared to be off aspirin completely, I would recommend PCNL approach due to her stone size and location, however, if she does require thierry procedural aspirin/ baby aspirin , I would prefer patient to be treated with ureteroscopy, laser lithotripsy. Given large stone burden, she will require multiple stone intervention especially if the ureteroscopy is chosen due to her coronary artery disease requiring antiplatelet therapy. Recommend n.p.o. after midnight for ureteral stent. Cardiology consultation initiated. addendum. I informed the patient left AGAINST MEDICAL ADVICE. She declines surgery, further workup. When inquired regarding this and she desires to leave, patient states that she will seek a second opinion does not desire my services. Questions encourage and answered to her satisfaction. Job ID: [id number] MTDD
[2018-09-29] MEDS ORDERED: cefTRIAXone\\ROCEPHIN 1 GM in Sodium Chloride 0.9% 100 ML IVPB SCH (23:00)
== END 2018-09-29 13:25 | disposition left against medical advice (07) | DRG 690 ==
LOC: SCSER 19:45 → 2SW 23:18 → OBSVTOIN 23:58
PROVIDERS: ADMIT Internal Medicine; ATTEND Internal Medicine
DX: N13.6 Pyonephrosis (principal); I25.10 Atherosclerotic heart disease of native coronary artery without angina pectoris; I25.5 Ischemic cardiomyopathy; M79.7 Fibromyalgia; G47.33 Obstructive sleep apnea (adult) (pediatric); F32.9 Major depressive disorder, single episode, unspecified; J45.909 Unspecified asthma, uncomplicated; I11.0 Hypertensive heart disease with heart failure; I50.9 Heart failure, unspecified; E11.65 Type 2 diabetes mellitus with hyperglycemia; F17.200 Nicotine dependence, unspecified, uncomplicated; Z88.8 Allergy status to other drugs, medicaments and biological substances; Z90.710 Acquired absence of both cervix and uterus; Z90.49 Acquired absence of other specified parts of digestive tract; Z95.1 Presence of aortocoronary bypass graft
CPT/HCPCS: 36415; 36416; 71045; 74176; 80048; 80053; 81003; 81015; 82550; 83605; 83690; 83880; 84484; 85025; 85379; 87086; 93005; 94640; 96361; 96374; 96375; J0696; J1825; J1885; J3490; J7620; J8597; Q0169

== ENCOUNTER 2018-10-06 15:12 | Emergency (ER) | payer SELFPAY ==
[2018-10-06] MEDS ORDERED: Metoclopramide HCl 10 MG/2 ML VIAL ONE (15:40)
[2018-10-06] MEDS ORDERED: Ondansetron PF 4 MG/2 ML Vial ONE (15:40)
[2018-10-06] MEDS ORDERED: Ketorolac Tromethamine 30 MG/ML VIAL ONE (15:40)
[2018-10-06 15:52] LABS: #Basophils 0.1 thou/uL (0.0-0.2); #Eosinphils 0.2 thou/uL (0.0-0.7); #Lymphocytes 2.1 thou/uL (1.20-3.40); #Monocytes 0.6 thou/uL (0.11-0.59); #Neutrophils 3.4 thou/uL (1.40-6.50); %Basophils 1.4 % (0.0-1.0); %Eosinophils 3.8 % (0.0-10.0); %Lymphocytes 31.9 % (21.0-51.0); %Monocytes 9.5 % (0.0-10.0); %Neutrophils 53.4 % (42.0-75.0); Hemoglobin 14.9 g/dL (12.0-16.0); Mean Corpuscular Hemoglobin 32.2 pg (27.0-31.0); Mean Corpuscular Volume 97.6 fL (78.0-98.0); Mean Platelet Volume 6.7 fL (7.4-10.4); Platelet Count 339 thou/uL (130-400); RBC Distribution Width 12.8 % (11.5-14.5); Red Blood Cell (RBC) Count 4.62 mill/uL (4.20-5.40); White Blood Cell (WBC) Count 6.5 thou/uL (4.8-10.8)
[2018-10-06 16:10] LABS: ALT (SGPT) 22 U/L (8-55); AST (SGOT) 17 U/L (5-34); Albumin 3.8 g/dL (3.5-5.0); Alkaline Phosphatase 114 U/L (40-150); Anion Gap 17 mmol/L (10-20); BUN (Urea Nitrogen) 19 mg/dL (9.8-20.1); Bilirubin, Total 0.2 mg/dL (0.2-1.2); Calc. Creatinine Clearance 0 mL/min (70-130); Calcium 9.6 mg/dL (7.8-10.44); Carbon Dioxide 26 mmol/L (22-29); Chloride 101 mmol/L (98-107); Estimated GFR-MDRD 71; Globulin 3.5 g/dL (2.4-3.5); Glucose 176 mg/dL (70-105); Potassium 4.3 mmol/L (3.5-5.1); Protein, Total 7.3 g/dL (6.0-8.3); Sodium 140 mmol/L (136-145)
--- NOTE | 2018-10-06 16:16 | CT ---
CT abdomen and pelvis noncontrast HISTORY: Renal stones. Right flank pain. COMPARISON: 09/28/2018. FINDINGS: Large partial staghorn calculi involving each kidney are similar in appearance to the prior study, measuring up to 2.1 cm radius length at the inferior pole of the right kidney and 2.1 cm at the left renal pelvis. Mild distention of the left superior pole renal calyces and diffuse distention of the left ureter are similar in appearance to the previous study. No stones are evident within the ureters. Lack of contrast limits evaluation of the soft tissues. Gallbladder is surgically absent. Calcificati on within the arterial structures. Early osteonecrosis changes of the apices of the femoral heads is unchanged in appearance. IMPRESSION: Stable CT appearance of large bilateral renal calculi. Mild distention of the left renal collecting system and ureter is unchanged. No obstructing stone is evident. Clinical correlation regarding other signs and symptoms of left pyeloureteral nephritis is required. Atherosclerosis.
[2018-10-06 16:30] LABS: Bilirubin Negative (Negative); Blood, Urine Moderate (Negative); Clarity Clear (Clear); Glucose, Urine (Dipstick) Negative (Negative); Leukocyte Large (Negative); Nitrite Negative (Negative); Protein, Urine (Dipstick) 100 mg/dL (Neg-Trace); Urobilinogen 0.2 mg/dL (0.2-1.0); pH, Urine 5.5 (5.0-9.0)
[2018-10-06 16:36] LABS: Bacteria/HPF 2+ HPF (None Seen); Squamous Epithelial 0-3 HPF (0-3)
[2018-10-06] MEDS ORDERED: Sodium Chloride 0.9% 100 ML ONE (17:57)
[2018-10-06] MEDS ORDERED: cefTRIAXone\\ROCEPHIN 1 GM VIAL ONE (17:57)
== END 2018-10-06 18:14 | disposition home or self-care (01) ==
LOC: SCSER 15:12
DX: N20.1 Calculus of ureter (principal); N39.0 Urinary tract infection, site not specified; I25.10 Atherosclerotic heart disease of native coronary artery without angina pectoris; I50.9 Heart failure, unspecified; I25.2 Old myocardial infarction; I11.0 Hypertensive heart disease with heart failure; G47.33 Obstructive sleep apnea (adult) (pediatric); J45.909 Unspecified asthma, uncomplicated; F41.9 Anxiety disorder, unspecified; F32.9 Major depressive disorder, single episode, unspecified; F17.210 Nicotine dependence, cigarettes, uncomplicated; Z79.899 Other long term (current) drug therapy; Z79.82 Long term (current) use of aspirin; Z79.4 Long term (current) use of insulin
CPT/HCPCS: 74176; 80053; 81003; 81015; 85025; 87086; 96374; 96375; J0696; J1885; J2405; J2765; J3490

== ENCOUNTER 2019-02-24 17:32 | Inpatient (IN) | payer SELFPAY ==
[2019-02-24 18:01] LABS: #Basophils 0.1 thou/uL (0.0-0.2); #Eosinphils 0.2 thou/uL (0.0-0.7); #Lymphocytes 2.3 thou/uL (1.20-3.40); #Monocytes 0.7 thou/uL (0.11-0.59); #Neutrophils 4.4 thou/uL (1.40-6.50); %Eosinophils 2.9 % (0.0-10.0); %Lymphocytes 29.5 % (21.0-51.0); %Monocytes 9.4 % (0.0-10.0); %Neutrophils 57.1 % (42.0-75.0); Mean Corpuscular HGB CONC 31.1 g/dL (32.0-36.0); Mean Corpuscular Hemoglobin 30.8 pg (27.0-31.0); Mean Corpuscular Volume 99.2 fL (78.0-98.0); Mean Platelet Volume 6.7 fL (7.4-10.4); Platelet Count 353 thou/uL (130-400); RBC Distribution Width 15.9 % (11.5-14.5); Red Blood Cell (RBC) Count 5.18 mill/uL (4.20-5.40); White Blood Cell (WBC) Count 7.7 thou/uL (4.8-10.8)
[2019-02-24 18:13] LABS: ALT (SGPT) 32 U/L (8-55); AST (SGOT) 17 U/L (5-34); Albumin 4.2 g/dL (3.5-5.0); Alkaline Phosphatase 141 U/L (40-110); Anion Gap 15 mmol/L (10-20); BUN (Urea Nitrogen) 18 mg/dL (9.8-20.1); Bilirubin, Total 0.2 mg/dL (0.2-1.2); CK (CPK) 79 U/L (29-168); Calc. Creatinine Clearance 0 mL/min (70-130); Calcium 9.7 mg/dL (7.8-10.44); Carbon Dioxide 35 mmol/L (22-29); Chloride 96 mmol/L (98-107); Estimated GFR-MDRD 52; Globulin 3.4 g/dL (2.4-3.5); Glucose 296 mg/dL (70-105); Lipase 13 U/L (8-78); Potassium 3.6 mmol/L (3.5-5.1); Protein, Total 7.6 g/dL (6.0-8.3); Sodium 142 mmol/L (136-145)
[2019-02-24] MEDS ORDERED: methylPREDNISolone Sod Succ/PF 125 MG/2 ML VIAL ONE (18:20)
--- NOTE | 2019-02-24 18:20 | RAD ---
Chest AP view INDICATION: Shortness of breath COMPARISON: September 28, 2018 FINDINGS: Lungs:The lungs are clear Cardiac silhouette:Stable cardiomegaly, post-CABG change and single lead AICD Pulmonary vasculature:Normal Pleural spaces:No pleural effusion or pneumothorax is demonstrated. Upper abdomen:No abnormality seen. Osseous structures: No acute osseous abnormality. Additional findings:None. IMPRESSION: Stable cardiomegaly
[2019-02-24 21:04] LABS: Troponin I 0.019 ng/mL (< 0.028)
[2019-02-25 00:21] LABS: Troponin I 0.016 ng/mL (< 0.028)
[2019-02-25] MEDS ORDERED: Dextrose 50% Abboject 50 ML SYRINGE SLOW IVP PRN (04:06)
[2019-02-25] MEDS ORDERED: Acetaminophen 325 MG TAB PO PRN (04:06)
[2019-02-25] MEDS ORDERED: Cyclobenzaprine 10 MG TAB PO PRN (04:06)
[2019-02-25] MEDS ORDERED: HumaLOG 300 UNITS/3 ML VIAL SC PRN (04:06)
[2019-02-25] MEDS ORDERED: Calcium Carbonate 500 MG ChewTAB PO PRN ×2 (04:06→13:20)
[2019-02-25] MEDS ORDERED: Guaifenesin DM 100-10/5 ML UDCUP PO PRN (04:06)
[2019-02-25] MEDS ORDERED: Furosemide 20 MG TAB PO PRN (04:06)
[2019-02-25] MEDS ORDERED: Bisacodyl 10 MG SUPP PR PRN (04:06)
[2019-02-25] MEDS ORDERED: Senokot S 8.6-50 MG TAB PO PRN ×2 (04:06→13:24)
[2019-02-25] MEDS ORDERED: HYDROcodone/Acetaminophen 5/325 mg Tablet PO PRN (04:06)
[2019-02-25] MEDS ORDERED: Dextrose 5% in Water 1,000 ML IV PRN (04:06)
[2019-02-25] MEDS: Fioricet 325/50/40 mg Tablet PO PRN (04:33)
--- NOTE | 2019-02-25 04:40 | HP ---
REASON FOR ADMISSION: COPD exacerbation. HISTORY OF PRESENTING ILLNESS: The patient gives history of having shortness of breath and wheezing for almost a month off and on. She has continued to smoke during this period. She had gone to see Dr. Macedo in his office this morning and was saturating around 78% on room air. She was asked to go to the emergency room. She has cough with expectoration of clear sputum. No chest pain or fever. She has been taking nebulization therapy 3 times a day at home. No other family members were sick. PAST MEDICAL AND SURGICAL HISTORY: History of CABG, history of endometrial carcinoma diagnosed in July 2018, pacemakers, prior history of nephrolithiasis, diabetes mellitus type 2, chronic pain syndrome. Had cardiac cath done in June 2018, which showed ejection fraction of around 20% to 25%. Her saphenous vein graft was patent to OM and RCA. Her stent to LAD was patent then. Diabetes mellitus type 2, history of cholecystectomy, oral surgeries, hysterectomy. CURRENT MEDICATIONS: Please note the patient is on multiple medications including; 1. Lipitor 80 mg p.o. at bedtime. 2. Fioricet p.r.n. for headache. 3. Coreg 12.5 mg twice daily. 4. Flexeril 10 mg 3 times daily. 5. Breo Ellipta inhaler daily. 6. Lasix 20 mg twice daily p.r.n. 7. NovoLog 70/30, 10 units subcu twice daily. 8. DuoNebs q.i.d. p.r.n. 9. Levemir 30 units subcu twice daily. 10. Lisinopril 5 mg daily. 11. Lyrica 150 mg p.o. at bedtime and 75 mg p.o. daily. 12. Zoloft 100 mg p.o. at bedtime. 13. Flomax 0.4 mg p.o. daily. 14. Aspirin 325 mg p.o. daily. ALLERGIES: SINGULAIR, TORADOL, ULTRAM, ZANAFLEX, ZOFRAN. PERSONAL HISTORY: Smokes 1 to 1-1/2 packs a day. Does not abuse alcohol or drugs. Lives with a roommate. FAMILY HISTORY: Mother is living and healthy. Father in his 80s. CODE STATUS: Full. Power of title attorney is her roommate, Ms. Regalado, who knows her for last 10 years or so. The patient has grown-up children. REVIEW OF SYSTEMS: CONSTITUTIONAL: Negative for weight loss or gain, ability to conduct usual activities. SKIN: Negative for rash, itching. EYES: Negative for double vision, pain. ENT/MOUTH: Negative for nose bleeding, neck stiffness, pain, tenderness. CARDIOVASCULAR: Negative for palpitations, dyspnea on exertion, orthopnea. RESPIRATORY: Negative for shortness of breath, wheezing, cough, hemoptysis, fever or night sweats. GASTROINTESTINAL: Negative for poor appetite, abdominal pain, heartburn, nausea , vomiting, constipation, or diarrhea. GENITOURINARY: Negative for urgency, frequency, dysuria, nocturia. MUSCULOSKELETAL: Negative for pain, swelling. NEUROLOGIC/PSYCHIATRIC: Negative for anxiety, depression. ALLERGY/IMMUNOLOGIC: Negative for skin rash, bleeding tendency. PHYSICAL EXAMINATION: GENERAL: The patient is a 58-year-old female, who is currently not in any acute distress. VITAL SIGNS: Blood pressure 133/84, pulse 100 per minute, respiratory rate 22 per minute, temperature 98.9 degrees Fahrenheit, saturating 93% on 2 L nasal cannula. NECK: Supple. No elevated JVD. HEENT: Eyes; extraocular muscles intact. Pupils reacting to light. Oral cavity, mucous membranes are moist. No exudates or congestion. CARDIOVASCULAR: S1 and S2 heard. Regular rhythm. RESPIRATORY: Air entry 1+ bilateral. Scattered wheezes plus bilateral. ABDOMEN: Soft. Bowel sounds heard. No tenderness, rigidity, or guarding. EXTREMITIES: No peripheral edema or calf tenderness. VASCULAR SYSTEM: Peripheral pulses 1+ bilateral. No ischemic ulcerations or gangrene. CENTRAL NERVOUS SYSTEM: No gross focal deficits noted. The patient is alert, awake, oriented well. PSYCHIATRIC: The patient's mood is euthymic. No hallucinations or delusions. LABORATORY DATA: Chest x-ray done shows cardiomegaly. Serum bicarb is 35, BUN 18, creatinine 1.0, serum glucose 296. Troponin x3 negative. Liver enzymes within normal limits. Albumin is 4.2. BNP 22. White count of 7, H and H 16 and 51, platelet count is 353 with 57% neutrophils. EKG done shows normal sinus rhythm at 95 beats per minute. QRS duration is 100 milliseconds, corrected QT is 399 milliseconds. CLINICAL IMPRESSION AND PLAN: The patient will be admitted to telemetry for acute on chronic chronic obstructive pulmonary disease exacerbation. She has ongoing history of heavy smoking. She will be placed on empiric Augmentin along with Solu-Medrol, and DuoNebs. We will continue her Lipitor, aspirin, Coreg, NovoLog 70/30, Levemir, lisinopril, Lyrica at bedtime, Flomax, all at home doses. She will also continue Zoloft, Flexeril p.r.n. We will consult Dr. Macedo for Pulmonology. Please note, the patient can be transferred to medical floor if she remained stable for the next 2 to 3 hours. Job ID: [id number] [facility]
[2019-02-25] MEDS ORDERED: methylPREDNISolone Sod Succ 40 MG VIAL IVP SCH (06:00)
[2019-02-25] MEDS ORDERED: [UNRECOGNIZED DRUG - OTHER] SC SCH (08:00)
[2019-02-25] MEDS ORDERED: INSULIN ASPART PROTAMINE SC SCH (08:00)
[2019-02-25] MEDS ORDERED: INSULIN ASPART SC SCH (08:00)
[2019-02-25] MEDS ORDERED: HumuLIN 70/30 (300 UNITS/3 ML VIAL) SC SCH (09:00)
[2019-02-25] MEDS ORDERED: Furosemide 40 MG/4 ML VIAL SLOW IVP SCH (09:00)
[2019-02-25] MEDS ORDERED: Non-Formulary Item 1 EACH (Levemir Flexpen [Levemir Flexpen] 30 UNITS) SC SCH (09:00)
[2019-02-25] MEDS: Carvedilol 6.25 MG TAB PO SCH ×2 (09:24→20:19)
[2019-02-25] MEDS: Aspirin 325 MG TAB PO SCH (09:24)
[2019-02-25] MEDS: Amoxicillin/Potassium Clav 875 MG TAB PO SCH ×2 (09:24→20:17)
[2019-02-25 09:25] LABS: Actual Bicarbonate (HCO3a) 31.3 mEq/L (22-28); Base Excess (BEa) 4.3 mEq/L (-2.0 to +3.0); CO2 Tension 56.1 mmHg (35.0-45.0); Calcium, Ionized 1.19 mmol/L (1.12-1.30); Carboxyhemoglobin (COHb) 4.1 gm% (0.0-3.0); Hemoglobin (Hb) 15.1 g/dL (12.0-16.0); Potassium - ABG Lab 4.28 mmol/L (3.70-5.30); pH, Arterial 7.37 (7.35-7.45)
[2019-02-25] MEDS: Enoxaparin Sodium 40 MG/0.4 ML SYRINGE SC SCH (09:25)
[2019-02-25 09:26] LABS: O2 Tension (PaO2) 48.6 mmHg (80.0-100.0)
[2019-02-25] MEDS: Famotidine 20 MG TAB PO SCH ×2 (09:26→20:18)
[2019-02-25] MEDS: Tamsulosin HCl 0.4 MG CAP PO SCH (09:26)
[2019-02-25] MEDS: Lisinopril 5 MG TAB PO SCH (09:26)
[2019-02-25] MEDS: Insulin Glargine 30 UNITS in Pre-Filled Syringe 1 EACH SC SCH ×2 (09:27→20:45)
[2019-02-25] MEDS: HumaLOG 300 UNITS/3 ML VIAL SC PRN ×2 (09:28→11:57)
[2019-02-25 10:43] LABS: Bilirubin Negative (Negative); Blood, Urine Negative (Negative); Clarity Clear (Clear); Glucose, Urine (Dipstick) Greater than 1000 mg/dL (Negative); Leukocyte 250 Leu/uL (Negative); Nitrite Negative (Negative); Protein, Urine (Dipstick) Negative (Neg-Trace); Squamous Epithelial 0-3 HPF (0-3); Urobilinogen Normal mg/dL (Less than 2); WBC/HPF Greater than 50 HPF (0-3)
[2019-02-25 10:51] LABS: Bacteria/HPF None Seen HPF (None Seen)
[2019-02-25 10:52] LABS: Amphetamine Not Detected (NotDetected); Barbiturates Screen Detected (NotDetected); Benzodiazepine Screen Not Detected (NotDetected); Cocaine Metabolite Screen Not Detected (NotDetected); Medtox Control Line Valid? VALID (VALID); Medtox Reader # READER 4; Methadone Not Detected (NotDetected); Methamphetamine Not Detected (NotDetected); Opiate Screen Not Detected (NotDetected); Oxycodone Screen Not Detected (NotDetected); Phencyclidine (PCP) Not Detected (NotDetected); THC/Cannabinoid Screen Not Detected (NotDetected); Tricyclic Screen Not Detected (NotDetected)
[2019-02-25 10:54] LABS: Urine Culture Reflex Yes Yes
[2019-02-25] MEDS ORDERED: Polyethylene Glycol 3350 17 GM Packet PO PRN (13:22)
[2019-02-25] MEDS ORDERED: Loratadine 10 MG TAB PO SCH (13:30)
[2019-02-25] MEDS ORDERED: Pregabalin 75 MG CAP PO SCH ×2 (13:30→21:00)
[2019-02-25] MEDS: Nicotine 14 MG PATCH TD PRN (13:43)
[2019-02-25] MEDS: ALPRAZolam 0.25 MG TAB PO PRN (13:44)
[2019-02-25] MEDS ORDERED: HumaLOG 300 UNITS/3 ML VIAL SC SCH (17:00)
[2019-02-25] MEDS ORDERED: predniSONE 20 MG TAB PO SCH (17:00)
[2019-02-25] MEDS: guaiFENesin ER 600 MG TAB PO SCH (20:21)
--- NOTE | 2019-02-25 20:57 | CON ---
DATE OF CONSULTATION: HISTORY OF PRESENT ILLNESS: Ms. Ramsay is a 58-year-old female. She is apparently seen in the associates office yesterday and sent to the emergency room for shortness of breath and hypoxemia. I was consulted this afternoon for the same problems. She says she has been short of breath for a month. She continues to smoke. She has had no chest pain. She denies hemoptysis. She denies purulent sputum. She has been admitted and says she feels a little better. PAST MEDICAL HISTORY: 1. Coronary artery bypass grafting in the past. 2. Endometrial cancer in 2019. 3. History of pacemaker, defibrillator. 4. History of nephrolithiasis. 5. History of an ejection fraction of 25%. 6. Diabetes. 7. History of cardiac catheterization showing nothing that needed intervention prior to recent hysterectomy, she tells me. 8. History of saphenous vein graft to her obtuse marginal in right coronary and a stent to her LAD. 9. History of cholecystectomy. 10. Status post hysterectomy. MEDICATIONS: Prior to admission, she is on, 1. Lipitor. 2. Fioricet. 3. Coreg. 4. Flexeril. 5. Breo. 6. Lasix. 7. NovoLog. 8. DuoNeb. 9. Levemir. 10. Lisinopril. 11. Lyrica. 12. Zoloft. 13. Flomax. 14. Aspirin. ALLERGIES: SHE REPORTS INTOLERANCE TO SINGULAIR, TORADOL, ULTRAM, ZANAFLEX, ZOFRAN. SOCIAL HISTORY: She is at least a pack-a-day smoker often more. She does not drink. She does not use drugs. She denies vaping. REVIEW OF SYSTEMS: Otherwise negative. FAMILY HISTORY: Positive for vascular disease. REVIEW OF SYSTEMS: A 10-point review of systems otherwise negative. PHYSICAL EXAMINATION: GENERAL: She is in no distress. VITAL SIGNS: She is afebrile. Heart rate is 84, respiratory rate 16, oximetry is 96% on 2 L, blood pressure 115/70. HEAD AND NECK: Unremarkable. LUNGS: Remarkable for end-expiratory wheezes. HEART: Regular rhythm. S1 and S2 are normal. ABDOMEN: Soft and nontender. EXTREMITIES: Without clubbing, cyanosis, or edema. IMAGING STUDIES: Chest x-ray showed no infiltrates. IMPRESSION: Chronic obstructive pulmonary disease with a 1-month history of decline in function secondary to ongoing heavy tobacco use. This probably really is not an acute exacerbation of chronic obstructive pulmonary disease secondary to an external agents such as a viral illness or bronchitis, but more likely secondary to ongoing heavy tobacco use. She could be switched to p.o. medications. She is probably a candidate for discharge in 24 to 48 hours. She probably needs to be discharged home on oxygen if she qualifies until she is stabilized. I have explained to her that the one thing that will keep her grafts from remaining patent is ongoing tobacco use in the face of diabetes. Job ID: [id number]
[2019-02-25] MEDS ORDERED: Atorvastatin Calcium 40 MG TAB PO SCH (21:00)
[2019-02-25] MEDS ORDERED: Famotidine 20 MG TAB PO SCH (21:00)
[2019-02-25] MEDS: Nystatin Powder 15 GM BOT TOP SCH (22:51)
--- NOTE | 2019-02-25 23:03 | PDOC.HOSPP ---
- Subjective Encounter Date: 02/25/19 Encounter Time: 12:00 Subjective: Patient seen and examined for COPD exacerbation. SOB improving. Some dry cough. Feeling somewhat better. No new complaints. No overnight events - Objective Vital Signs & Weight: Vital Signs (12 hours) Temp Pulse Resp BP Pulse Ox 02/25/19 20:00 98.1 F 63 17 120/80 94 L 02/25/19 18:53 93 16 96 02/25/19 15:22 97.2 F L 84 16 115/80 96 02/25/19 12:01 89 16 86 L 02/25/19 11:21 97.8 F 93 16 134/86 98 Weight Weight 189 lb 14.4 oz I&O: 02/24/19 02/25/19 02/26/19 06:59 06:59 06:59 Intake Total 1230 Output Total 1800 Balance -570 Result Diagrams: 02/26/19 04:20 02/26/19 04:20 Additional Labs: Accuchecks 02/25/19 02/25/19 02/25/19 20:25 16:20 11:31 POC Glucose 340 H 248 H 375 H 02/25/19 07:19 POC Glucose 248 H Radiology Reviewed by me: Yes (CXR - no pneumonia) EKG Reviewed by me: Yes (Tele SR) Hospitalist ROS - Review of Systems Respiratory: reports: cough, dry, SOB with excertion. denies: shortness of breath, hemoptysis, pleuritic pain, sputum, wheezing, other Cardiovascular: denies: chest pain, palpitations, orthopnea, paroxysmal noc. dyspnea, edema, light headedness, other Gastrointestinal: denies: nausea, vomiting, abdominal pain, diarrhea, constipation, melena, hematochezia, other - Medication Medications: Active Medications Generic Name Dose Route Start Last Admin Trade Name Freq PRN Reason Stop Dose Admin Acetaminophen/Butalbital/Caffeine 1 tab 02/25/19 04:13 02/25/19 04:33 Fioricet PO 03/02/19 04:14 1 tab Q6HR PRN Administration migraine Hydrocodone Bitart/Acetaminophen 1 tab 02/25/19 04:06 02/25/19 09:46 Hardesty 5/325 PO 1 tab Q4H PRN Administration Moderate Pain (4-6) Albuterol/Ipratropium 3 ml 02/25/19 07:00 02/25/19 18:53 Duoneb NEB 3 ml [id number] TIANNA Administration Alprazolam 0.25 mg 02/25/19 13:14 02/25/19 13:44 Xanax PO 0.25 mg BIDPRN PRN Administration Anxiety Amoxicillin/Clavulanate Potassium 875 mg 02/25/19 09:00 02/25/19 20:17 Augmentin PO 875 mg BID TIANNA Administration Aspirin 325 mg 02/25/19 09:00 02/25/19 09:24 Aspirin PO 325 mg DAILY TIANNA Administration Atorvastatin Calcium 80 mg 02/25/19 21:00 02/25/19 20:20 Lipitor PO 80 mg HS TIANNA Administration Carvedilol 12.5 mg 02/25/19 09:00 02/25/19 20:19 Coreg PO 12.5 mg BID TIANNA Administration Cyclobenzaprine HCl 10 mg 02/25/19 04:06 02/25/19 09:46 Flexeril PO 10 mg TID PRN Administration Muscle Spasm Enoxaparin Sodium 40 mg 02/25/19 09:00 02/25/19 09:25 Lovenox SC 40 mg 0900 TIANNA Administration Famotidine 20 mg 02/25/19 09:00 02/25/19 20:18 Pepcid PO 20 mg BID TIANNA Administration Guaifenesin 600 mg 02/25/19 21:00 02/25/19 20:21 Mucinex PO 600 mg Q12HR TIANNA Administration Insulin Glargine 30 units/ 0.3 mls @ 0 mls/hr 02/25/19 09:00 02/25/19 20:45 Miscellaneous Medication SC 0.3 mls BID TIANNA Administration Insulin Human Lispro 0 units 02/25/19 04:06 02/25/19 11:57 Humalog SC 10 unit .MODERATE SLIDING SC PRN Administration Moderate Correctional Scale Insulin Human Lispro 0 units 02/25/19 04:06 02/25/19 20:25 Humalog SC 4 unit .BEDTIME SLIDING SC PRN Administration Bedtime Correctional Scale Lisinopril 5 mg 02/25/19 09:00 02/25/19 09:26 Zestril PO 5 mg DAILY TIANNA Administration Nicotine 14 mg 02/25/19 13:14 02/25/19 13:43 Nicoderm Patch TD 14 mg Q24HR PRN Administration Smoking craving Nystatin 0 gm 02/25/19 21:00 02/25/19 22:51 Mycostatin Powder TOP Not Given BID TIANNA Pregabalin 150 mg 02/25/19 21:00 02/25/19 20:18 Lyrica PO 150 mg HS TIANNA Administration Sertraline HCl 100 mg 02/25/19 21:00 02/25/19 20:21 Zoloft PO 100 mg HS TIANNA Administration Tamsulosin HCl 0.4 mg 02/25/19 09:00 02/25/19 09:26 Flomax PO 0.4 mg DAILY TIANNA Administration - Exam General Appearance: NAD Neck: supple, no JVD Heart: RRR, no gallops, no rubs, normal peripheral pulses Respiratory: no rales, normal chest expansion, rhonchi, wheezes Gastrointestinal: soft, non-tender, non-distended, normal bowel sounds Extremities: no edema Psychiatric: normal affect, A&O x 3 Hosp A/P - Plan DVT proph w/SCDs Asthma Exacerbation Acute on chronic systolic/diastolic HF Tobacco dep Obesity BMI 37.1 CAD s/p CABG Anxiety HTN Dyslipidemia PLAN: Cont Steroids/Atbx Cont sldiing scale Cont current Insulin dose Counselled to quit smoking Cont other meds
[2019-02-26] MEDS: Senokot S 8.6-50 MG TAB PO SCH ×2 (01:30→08:43)
[2019-02-26] MEDS: HumaLOG 300 UNITS/3 ML VIAL SC PRN ×4 (02:34→17:38)
[2019-02-26 04:48] LABS: #Lymphocytes 1.3 thou/uL (1.20-3.40); #Monocytes 0.6 thou/uL (0.11-0.59); #Neutrophils 5.8 thou/uL (1.40-6.50); %Basophils 0.6 % (0.0-1.0); %Eosinophils 0.5 % (0.0-10.0); %Lymphocytes 17.1 % (21.0-51.0); %Monocytes 8.1 % (0.0-10.0); %Neutrophils 73.7 % (42.0-75.0); Mean Corpuscular HGB CONC 32.4 g/dL (32.0-36.0); Mean Corpuscular Hemoglobin 32.2 pg (27.0-31.0); Mean Corpuscular Volume 99.4 fL (78.0-98.0); Mean Platelet Volume 6.9 fL (7.4-10.4); Platelet Count 311 thou/uL (130-400); RBC Distribution Width 14.6 % (11.5-14.5); Red Blood Cell (RBC) Count 4.65 mill/uL (4.20-5.40); White Blood Cell (WBC) Count 7.8 thou/uL (4.8-10.8)
[2019-02-26 04:49] VITALS: BMI 36.8
[2019-02-26 05:10] LABS: Anion Gap 12 mmol/L (10-20); BUN (Urea Nitrogen) 21 mg/dL (9.8-20.1); Calc. Creatinine Clearance 94 mL/min (70-130); Calcium 9.3 mg/dL (7.8-10.44); Carbon Dioxide 33 mmol/L (22-29); Chloride 98 mmol/L (98-107); Estimated GFR-MDRD 66; Glucose 333 mg/dL (70-105); Sodium 139 mmol/L (136-145)
[2019-02-26] MEDS ORDERED: Insulin Regular 300 UNITS/3 ML VIAL ONE (05:54)
[2019-02-26] MEDS ORDERED: Furosemide 40 MG/4 ML VIAL SLOW IVP SCH (06:00)
[2019-02-26] MEDS ORDERED: predniSONE 20 MG TAB PO SCH (08:00)
[2019-02-26] MEDS: Famotidine 20 MG TAB PO SCH (08:41)
[2019-02-26] MEDS: Carvedilol 6.25 MG TAB PO SCH (08:41)
[2019-02-26] MEDS: Amoxicillin/Potassium Clav 875 MG TAB PO SCH (08:41)
[2019-02-26] MEDS: Aspirin 325 MG TAB PO SCH (08:41)
[2019-02-26] MEDS: Enoxaparin Sodium 40 MG/0.4 ML SYRINGE SC SCH (08:41)
[2019-02-26] MEDS: Lisinopril 5 MG TAB PO SCH (08:42)
[2019-02-26] MEDS: Fioricet 325/50/40 mg Tablet PO PRN (08:43)
[2019-02-26] MEDS: Nystatin Powder 15 GM BOT TOP SCH (08:43)
[2019-02-26] MEDS: Tamsulosin HCl 0.4 MG CAP PO SCH (08:43)
[2019-02-26] MEDS: guaiFENesin ER 600 MG TAB PO SCH (08:43)
[2019-02-26] MEDS: Insulin Glargine 30 UNITS in Pre-Filled Syringe 1 EACH SC SCH (08:44)
[2019-02-26] MEDS ORDERED: Loratadine 10 MG TAB PO SCH (09:00)
[2019-02-26] MEDS ORDERED: Pregabalin 75 MG CAP PO SCH (09:00)
[2019-02-26] MEDS ORDERED: Saccharomyces boulardii 250 MG CAP PO SCH (09:00)
[2019-02-26] MEDS: Nicotine 14 MG PATCH TD PRN (13:30)
[2019-02-26] MEDS: ALPRAZolam 0.25 MG TAB PO PRN (13:30)
--- NOTE | 2019-02-26 14:10 | PRG ---
DATE OF SERVICE: 02/26/2019 SERVICE: Pulmonary Medicine. INTERVAL HISTORY: The patient is doing okay from respiratory standpoint. She is actually on room air this morning. She continues to urinate very well. Denies any fevers or chills. There were no significant overnight events. Her cough is better. PHYSICAL EXAMINATION: VITAL SIGNS: Afebrile. Pulse 83, blood pressure 147/93, respirations 18, saturation 95% on room air. GENERAL: The patient is awake and alert, in no apparent distress. LUNGS: Decreased air entry. There is a slightly prolonged expiratory phase, but I do not hear the crackles or wheezing today. Rhonchi are present, but clear with cough. HEART: Normal rate, regular. ABDOMEN: Soft, nontender, nondistended. Bowel sounds are positive. MUSCULOSKELETAL: No cyanosis or clubbing. There is no pitting today. NEUROLOGIC: Grossly nonfocal. LABORATORY DATA: WBC 7.8, hemoglobin 15.0, platelets 311,000. Bicarb 33 and gently downtrending. Basic metabolic profile is otherwise unremarkable. Creatinine 0.88, BUN 21. Urine culture is unremarkable. ASSESSMENT: 1. Acute hypoxic respiratory failure, resolved. 2. [id number] systolic and diastolic heart failure, improving. 3. Asthma with acute exacerbation, improving. DISCUSSION AND PLAN: The patient is stable for transition to home from the hospital today. She will need a 10-day course of p.o. prednisone. There is no taper required here. Antibiotics can be discontinued after a total duration of 5 days. She needs to abstain from any tobacco use. We will only follow intermittently if the patient remains in-house, but now that she is back on room air, she can likely be transitioned to home. Total duration of 5 days. Pulmonary will follow intermittently while the patient remains inhouse. Job ID: [id number]
[2019-02-26 15:43] VITALS: BP 135/91; TEMP 98.3
--- NOTE | 2019-02-26 19:02 | CON ---
DATE OF CONSULTATION: PRIMARY CARE DOCTOR: Dr. Kerr. PRIMARY REEL BLADE BENDER FURNACE TENDER: Altagracia Taylor MD PRIMARY ARCHITECTURAL COATING FINISHER: Dr. Macedo. REASON FOR CARDIOLOGY CONSULT: Status post 80 beats of nonsustained ventricular tachycardia. HISTORY OF PRESENT ILLNESS: Ms. Ramsay 58-year-old female with a significant history of coronary artery disease with CABG x2 and stent placement, diabetes type 2, COPD, and current smoker, and chronic systolic heart failure with status post defibrillator placement. The patient has had shortness of breath for 1 week. The patient thinks it was an asthma flare. The patient follows up with Dr. Macedo 2 days ago. The patient was recommend to go to the emergency department for further evaluation and treatment for the worsening of shortness of breath. The patient received some diuretic and prednisone, which stabilized the patient's breathing status. She is on 2 L nasal cannula at this moment. She states she can breathe much easier than prior to this hospitalization. The patient denied chest pain, heaviness, tightness, dizziness, lightheadedness, or any other cardiac complaints. The patient had a history of CABG x2, and the patient had a stent placement in RCA in 2011. The patient had a cardiac catheterization in June 2018 with EF 20% to 25% with patent graft. The patient's last echocardiogram was done in March 2018, EF 25% to 30% with global hypokinesis, mild aortic valve regurgitation, mild tricuspid regurgitation, trace mitral valve regurgitation, and grade 1 diastolic dysfunction. The patient was prescribed Entresto, but she stopped taking the medication after she finished sample of the Entresto, because she could not afford the medication. She did not call her primary care doctor's office or Dr. Taylor' office at that time according to the patient. PAST MEDICAL HISTORY: The patient's medical history is coronary artery disease, COPD, hyperlipidemia, diabetes, depression, fibromyalgia, nephrolithiasis, cardiomyopathy, and chronic systolic and diastolic heart failure. PAST SURGICAL HISTORY: CABG x2, stent placement, cholecystectomy, flutter ablation, tubal ligation, AICD placement. FAMILY HISTORY: No family history documented since the patient is adopted. SOCIAL HISTORY: She is living with her roommate. She is a current smoker. She smokes at least one pack a day. She denies alcohol intake or illicit drug abuse. She drinks caffeine 1 to 2 cups a day. ALLERGIES: SHE IS ALLERGIC TO SINGULAIR, TORADOL, ULTRAM, ZANAFLEX, ZOFRAN. MEDICATIONS: 1. Lyrica 75 mg once a day. 2. Zoloft 100 mg at night. 3. Nitroglycerin 0.4 mg sublingual. 4. Aspirin 325 mg once a day. 5. Flomax 0.4 mg once a day. 6. Levemir 30 units twice a day. 7. Insulin NovoLog 10 units four times a day. 8. Lasix 20 mg twice a day as needed. 9. DuoNeb 3 mL as needed. 10. Carvedilol 12.5 mg twice a day. 11. Fioricet one tablet p.o. every 6 hours. 12. Flexeril 10 mg 3 times a day. 13. Lisinopril 5 mg once a day. 14. Atorvastatin 80 mg once a day. 15. Lyrica 75 mg one in the morning and 2 tablets at night. REVIEW OF SYSTEMS: Twelve-point review of systems negative unless otherwise mentioned in the HPI. PHYSICAL EXAMINATION: VITAL SIGNS: Blood pressure 137/81, temperature 97.9, pulse is 70 to 80, sinus rhythm, respiratory rate 17, O2 saturation 95% on room air. GENERAL: The patient is alert and oriented x4, not in acute distress. HEENT: Head, normocephalic and atraumatic. Eyes; extraocular muscle movement intact. ENT; mouth, oral, and nasal mucosa moist without lesion. NECK: Supple. Normal range of motion. No JVD. LUNGS: Expiratory wheezing, diminished at the bases. CARDIOVASCULAR: Regular rate and rhythm. Normal S1 and S2. There is no S3 or S4. No significant murmur, hives, or thrill noted. 2+ pulses in the bilateral upper and lower extremity. No edema in the lower extremities. Carotid pulses are present without bruit or thrill. ABDOMEN: Soft, nontender. No mass to palpitate. Bowel sounds are present. MUSCULOSKELETAL: The patient is able to move all extremities without difficulty. SKIN: Warm and dry. No erythema, lesion, or rash noted. NEUROLOGIC: The patient is alert and oriented x4, not in any acute distress. Nonfocal. PSYCHIATRIC: The patient's mood is appropriate. LABORATORY DATA: WBC 7.8, hemoglobin 15.0, hematocrit 46.2, platelet 311. Sodium 139, potassium 4.0, BUN 21, creatinine 0.88, glucose 333, AST 17, ALT 32. The patient's chest x-ray shows stable cardiomegaly. ASSESSMENT AND PLAN: 1. Status post 80 beats of nonsustained ventricular tachycardia on the telemetry record. The patient's automatic implantable cardioverter-defibrillator was interrogated today. Totally the patient has 6 episodes of nonsustained ventricular tachycardia since last year and one was February 02, not today. The patient was asymptomatic during the episode. The patient's vital signs are stable. At this moment, we would like to continue to monitor. She is on carvedilol 12.5 mg twice a day, aspirin, atorvastatin. 2. Chronic obstructive pulmonary disease exacerbation. The patient's condition is stable with 2 L nasal cannula or maybe room air today, which is managed by primary care doctor. 3. Chronic systolic and diastolic heart failure. The patient's last ejection fraction was in June 2018, with the cath shows 20% to 25%. The patient is going to have another echocardiogram possibly during this admission or as outpatient. The patient is on lisinopril 5 mg once a day and carvedilol. She is going to be on Lasix 20 mg twice a day. She was prescribed Entresto, she stopped taking the medicine due to the penny. The patient might qualify for the patient's support program for Entresto which we would like to start during the process as outpatient. 4. Coronary artery disease with a history of coronary artery bypass graft and stent placement in the past. The patient's condition is stable at this moment. She is on carvedilol, lisinopril, aspirin, and statin. 5. Diabetes, type 2, which is managed by primary care doctor. 6. Current tobacco abuser. The smoking cessation education was given to the patient, however, at this moment, she does not want to quit smoking. Thank you very much for allowing the Cardiology Service to participate in the care of this patient. We will follow along the patient's care team and make further recommendations as appropriate. Job ID: [id number]
--- NOTE | 2019-02-26 20:54 | DIS ---
DATE OF ADMISSION: 02/24/2019 DATE OF DISCHARGE: 02/26/2019 DISCHARGE DISPOSITION: Home. FOLLOWUP: 1. Follow up with primary care physician, Dr. Felicitas Kerr in 1 week. 2. Follow up with Pulmonary, Dr. Macedo and Cardiology, Dr. Taylor as scheduled. ALLERGIES: THE PATIENT IS ALLERGIC TO ZOFRAN, SINGULAIR, AND ZANAFLEX. CODE STATUS: Full code. DISCHARGE MEDICATIONS: 1. Prednisone 40 mg daily for 1 more week. 2. Augmentin 875 mg b.i.d. for 5 more days. All other home medications were left unchanged. INPATIENT CONSULTANTS: 1. Pulmonary, Dr. Macedo. 2. Cardiology, Dr. Taylor. The patient was seen and examined on the day of discharge. Denies any new complaints. BRIEF HOSPITAL COURSE: The patient is a 58-year-old female, with congestive heart failure, coronary artery disease, and asthma, presented to the hospital with significant shortness of breath along with chest tightness and wheezing. Workup was consistent with acute hypoxic and hypercapnic respiratory failure. ABG showed pH of 7.37 with pCO2 of 56.1, pO2 of 48.6 with O2 saturation of 86% on 2 L nasal cannula. She showed good improvement with oxygen nebulizer treatment, steroids, antibiotics, and IV diuretics. Echocardiogram showed ejection fraction 35% to 40% with global hypokinesis. The patient was evaluated by Pulmonary and Cardiology. She also had 8-beat of nonsustained VTach. Her AICD was interrogated. She has been cleared by Cardiology and Pulmonary for discharge. FINAL DIAGNOSES: 1. Acute hypoxic and hypercapnic respiratory failure secondary to [id number] systolic and diastolic heart failure as well as asthma exacerbation. 2. Coronary artery disease. 3. Tobacco dependence. The patient was counseled. 4. Obesity with a BMI of 37. 5. History of coronary artery bypass grafting. 6. Hypertension. 7. Anxiety. 8. Dyslipidemia. 9. Depression. 10. Chronic kidney disease, stage 3. 11. Diabetes mellitus type 2. 12. Suspected urinary tract infection. Urine cultures are pending at this time. Primary care physician advised to follow. Urinalysis did not show any bacteria; however, there were greater than 50 wbc's, nitrite negative. Job ID: [id number]
--- NOTE | 2019-02-26 21:37 | CON ---
DATE OF CONSULTATION: 02/26/2019 INDICATION FOR CONSULTATION: A 58-year-old female with a long history of cardiomyopathy, coronary artery disease, tobacco abuse, diabetes, noncompliance. She was admitted to the hospital as she was complaining of increasing shortness of breath. She has had multiple hospitalizations due to CHF exacerbations. She again was admitted. She has no complaints of chest pain, but mainly was just short of breath. She has had some recent coughing. She had no other significant fevers or complaints. Echocardiogram has been performed today which shows ejection fraction actually of about 35% to 40%, in some views appears to be slightly less. She has had an ejection fraction in the past about 25% and appears to have improved somewhat. She was given diuresis and has apparently significantly improved. She denies any shortness of breath at this time and denies any pain and has no lower extremity edema. PAST MEDICAL HISTORY: Please refer to the notes already dictated by my nurse practitioner, Tomeka Perkins. SOCIAL HISTORY: Please refer to the notes already dictated by my nurse practitioner, Tomeka Perkins. FAMILY HISTORY: Please refer to the notes already dictated by my nurse practitioner, Tomeka Perkins. REVIEW OF SYSTEMS: Please refer to the notes already dictated by my nurse practitioner, Tomeka Perkins. MEDICATIONS: Please refer to the notes already dictated by my nurse practitioner, Tomeka Perkins. ALLERGIES: PLEASE REFER TO THE NOTES ALREADY DICTATED BY MY NURSE PRACTITIONER, TOMEKA PERKINS. PHYSICAL EXAMINATION: GENERAL: Reveals a well-developed, well-nourished female, who is in no acute distress at this time. She is alert. She is oriented. She is very pleasant. She has no chest pain. VITAL SIGNS: Her blood pressure is 137/81, heart rates in the 80s and shows a sinus rhythm, respiratory rate is 16. She is afebrile. O2 saturation is 95%. HEENT: Reveals the head to be normocephalic and atraumatic. Carotid pulses are present. There were no significant bruits noted. CHEST: Actually clear to auscultation. A few basilar rales on the right side, but otherwise is clear. CARDIOVASCULAR: Reveals a regular rate and rhythm. She has a normal S1, S2. There is no S3 or S4. She has a well-healed surgical incision for AICD implant underneath the left infraclavicular area. ABDOMEN: Unremarkable. Positive bowel sounds are present. No tenderness. EXTREMITIES: Show no clubbing, cyanosis, or edema. NEUROLOGIC: She appears to be fully intact. Chest x-ray showed no significant abnormalities or infiltrates. Echocardiogram showed AICD leads in the right atrium and right ventricle. Ejection fraction is estimated at 35% to 40%, in some views appears to be somewhat less, but overall does appear to be more than what has in the past. She has mild mitral and tricuspid valve regurgitation, there is also evidence of diastolic dysfunction. IMPRESSION: 1. Probable chronic obstructive pulmonary disease exacerbation in combination with her congestive heart failure with diastolic dysfunction as well as systolic failure. I have talked to her on many occasions informing to her that she needs to stop smoking. She still smokes at least sometimes up to a pack and half a day. She stays at home. She does not work. She has had admissions in the past for similar episodes, but refuses to stop smoking. At this time, cardiovascular exam and cardiac status appears to be stable and she is much improved and most likely could be discharged to home. 2. History of hypertension. This appears to be stable at this time. 3. Diabetes. This will be dealt with by the primary care service. At times, blood sugar is on the low side, but she is able to control this at home. 4. History of coronary artery disease and bypass surgery. This also appears to be not stable at this time. At this time, I would be in agreement that the patient appears to be stable for discharge. She can follow up as an outpatient. We will be more than happy to see her back in the office in the next 2 to 3 weeks. Job ID: [id number]
== END 2019-02-26 17:15 | disposition home or self-care (01) | DRG 291 ==
LOC: SCSER 17:32 → 2NO 21:58
PROVIDERS: ADMIT Internal Medicine; ATTEND Internal Medicine
DX: I13.0 Hypertensive heart and chronic kidney disease with heart failure and stage 1 through stage 4 chronic kidney disease, or unspecified chronic kidney disease (principal); J96.01 Acute respiratory failure with hypoxia; J96.02 Acute respiratory failure with hypercapnia; I50.43 Acute on chronic combined systolic (congestive) and diastolic (congestive) heart failure; J44.1 Chronic obstructive pulmonary disease with (acute) exacerbation; J45.901 Unspecified asthma with (acute) exacerbation; I47.2 Ventricular tachycardia; N39.0 Urinary tract infection, site not specified; I42.9 Cardiomyopathy, unspecified; I25.10 Atherosclerotic heart disease of native coronary artery without angina pectoris; M79.7 Fibromyalgia; F32.9 Major depressive disorder, single episode, unspecified; F41.9 Anxiety disorder, unspecified; F17.210 Nicotine dependence, cigarettes, uncomplicated; C54.1 Malignant neoplasm of endometrium; G89.4 Chronic pain syndrome; E11.22 Type 2 diabetes mellitus with diabetic chronic kidney disease; G47.33 Obstructive sleep apnea (adult) (pediatric); E66.9 Obesity, unspecified; E78.5 Hyperlipidemia, unspecified; I08.3 Combined rheumatic disorders of mitral, aortic and tricuspid valves; N18.3 Chronic kidney disease, stage 3 (moderate); I25.2 Old myocardial infarction; Z95.810 Presence of automatic (implantable) cardiac defibrillator; Z95.1 Presence of aortocoronary bypass graft; Z98.51 Tubal ligation status; Z90.49 Acquired absence of other specified parts of digestive tract; Z88.5 Allergy status to narcotic agent; Z88.8 Allergy status to other drugs, medicaments and biological substances; Z79.899 Other long term (current) drug therapy; Z79.4 Long term (current) use of insulin; Z79.82 Long term (current) use of aspirin; Z90.710 Acquired absence of both cervix and uterus; Z68.37 Body mass index [BMI] 37.0-37.9, adult; Z91.19 Patient's noncompliance with other medical treatment and regimen
CPT/HCPCS: 36415; 36416; 71045; 80048; 80053; 80306; 80307; 81001; 82550; 82785; 82805; 83690; 83880; 84484; 85025; 87086; 93005; 93306; 94640; 94760; J1650; J1815; J1940; J2920; J2930; J7512; J7620

== ENCOUNTER 2019-05-11 02:46 | Emergency (ER) | payer MEDICAID, OTHER ==
[2019-05-11 03:20] LABS: #Basophils 0.1 thou/uL (0.0-0.2); #Eosinphils 0.1 thou/uL (0.0-0.7); #Lymphocytes 2.6 thou/uL (1.20-3.40); #Monocytes 0.8 thou/uL (0.11-0.59); #Neutrophils 4.7 thou/uL (1.40-6.50); %Eosinophils 1.8 % (0.0-10.0); %Lymphocytes 31.4 % (21.0-51.0); %Monocytes 9.3 % (0.0-10.0); %Neutrophils 56.6 % (42.0-75.0); Hemoglobin 16.8 g/dL (12.0-16.0); Mean Corpuscular HGB CONC 34.5 g/dL (32.0-36.0); Mean Corpuscular Hemoglobin 32.7 pg (27.0-31.0); Mean Corpuscular Volume 94.7 fL (78.0-98.0); Mean Platelet Volume 7.9 fL (7.4-10.4); Platelet Count 306 thou/uL (130-400); RBC Distribution Width 12.6 % (11.5-14.5); Red Blood Cell (RBC) Count 5.13 mill/uL (4.20-5.40); White Blood Cell (WBC) Count 8.3 thou/uL (4.8-10.8)
[2019-05-11 03:41] LABS: ALT (SGPT) 23 U/L (8-55); AST (SGOT) 14 U/L (5-34); Albumin 4.2 g/dL (3.5-5.0); Alkaline Phosphatase 136 U/L (40-110); Anion Gap 15 mmol/L (10-20); BUN (Urea Nitrogen) 23 mg/dL (9.8-20.1); Bilirubin, Total 0.2 mg/dL (0.2-1.2); Calc. Creatinine Clearance 0 mL/min (70-130); Calcium 9.5 mg/dL (7.8-10.44); Carbon Dioxide 31 mmol/L (22-29); Chloride 94 mmol/L (98-107); Estimated GFR-MDRD 37; Glucose 430 mg/dL (70-105); Potassium 4.7 mmol/L (3.5-5.1); Protein, Total 7.2 g/dL (6.0-8.3); Sodium 135 mmol/L (136-145)
[2019-05-11] MEDS ORDERED: Albuterol Sulfate 2.5 mg/3 ml Neb ONE ×2 (04:48)
[2019-05-11] MEDS ORDERED: Insulin Regular 300 UNITS/3 ML VIAL ONE (05:53)
--- NOTE | 2019-05-11 07:30 | RAD ---
EXAM: Chest 2 views: HISTORY: Cough COMPARISON: 05/15/2016 FINDINGS: There is a normal-sized cardiomediastinal silhouette. The patient is status post sternotomy. The pac emaker is unchanged in position. There is no evidence of consolidation, mass, or pleural effusion. The bones are unremarkable. IMPRESSION: No evidence of acute cardiopulmonary disease
--- NOTE | 2019-05-11 07:35 | RAD ---
EXAM: 4 views of the right knee HISTORY: Knee pain COMPARISON: None FINDINGS: No knee effusion is seen. There is no evidence of acute fracture or dislocation. Small oste ophytes are seen in the medial femorotibial compartment and patellofemoral compartments. Sclerotic lesions in the distal femur and proximal tibia likely represent areas of bone infarction.. No soft ti ssue swelling is present. IMPRESSION: Mild right knee osteoarthritis
== END 2019-05-11 06:50 | disposition home or self-care (01) ==
LOC: ERS 02:46
DX: E11.65 Type 2 diabetes mellitus with hyperglycemia (principal); S83.91XA Sprain of unspecified site of right knee, initial encounter; J20.9 Acute bronchitis, unspecified; F17.210 Nicotine dependence, cigarettes, uncomplicated; I25.2 Old myocardial infarction; I25.10 Atherosclerotic heart disease of native coronary artery without angina pectoris; I11.0 Hypertensive heart disease with heart failure; I50.9 Heart failure, unspecified; G47.33 Obstructive sleep apnea (adult) (pediatric); Z87.442 Personal history of urinary calculi; Z71.6 Tobacco abuse counseling; Z79.891 Long term (current) use of opiate analgesic; Z79.84 Long term (current) use of oral hypoglycemic drugs; W19.XXXA Unspecified fall, initial encounter
CPT/HCPCS: 36416; 71046; 80053; 82010; 84484; 85025; 94640; 96361; 96374; J1815; J7611; J7620

== ENCOUNTER 2019-05-13 15:44 | Outpatient (CLI) | payer OTHER ==
--- NOTE | 2019-05-13 16:25 | ULT ---
Exam: Bilateral renal ultrasound HISTORY: Renal calculi COMPARISON: None Correlation: Stone protocol CT 10/06/2018 FINDINGS: Right kidney: Normal cortical echotexture. No hydronephrosis. Nonobstructing calculus in the lower po le measuring 0.9 x 0.6 x 0.5 cm Right kidney measurements: 4.4 x 4.4 x 12.0 cm. Left kidney: Normal cortical echotexture. No hydronephrosis. Nonobstructing thrombus in the lower ethan e left kidney measures 1.0 x 0.6 x 1.3 cm Left kidney measurements 11.5 x 5.4 x 5.5 cm. Urinary bladder: Normal mucosa. IMPRESSION: 1. No hydronephrosis. 2. Bilateral nonobstructing intrarenal calculi
--- NOTE | 2019-05-13 16:27 | RAD ---
Exam: 1 view abdomen HISTORY: Renal calculi COMPARISON: None FINDINGS: Cholecystectomy clips in the right upper quadrant Nonspecific bowel gas pattern Cluster calcifications projects over the left lower pole silhouette measuring 1 cm. No pneumoperitone um on supine projection. No acute osseous abnormalities IMPRESSION: Calculi projecting over the left lower pole renal silhouette.
== END 2019-05-13 15:45 | disposition home or self-care (01) ==
LOC: SCSULT 15:44
PROVIDERS: ATTEND Urology
DX: N20.0 Calculus of kidney (principal)
CPT/HCPCS: 74018; 76770

== ENCOUNTER 2019-06-01 21:24 | Inpatient (IN) | payer OTHER ==
[2019-06-01 21:56] LABS: #Basophils 0.1 thou/uL (0.0-0.2); #Eosinphils 0.1 thou/uL (0.0-0.7); #Lymphocytes 2.7 thou/uL (1.20-3.40); #Monocytes 0.6 thou/uL (0.11-0.59); #Neutrophils 5.1 thou/uL (1.40-6.50); %Basophils 1.1 % (0.0-1.0); %Eosinophils 1.5 % (0.0-10.0); %Monocytes 7.1 % (0.0-10.0); %Neutrophils 59.4 % (42.0-75.0); Hemoglobin 16.1 g/dL (12.0-16.0); Mean Corpuscular HGB CONC 32.4 g/dL (32.0-36.0); Mean Corpuscular Hemoglobin 30.9 pg (27.0-31.0); Mean Corpuscular Volume 95.5 fL (78.0-98.0); Mean Platelet Volume 7.2 fL (7.4-10.4); Platelet Count 359 thou/uL (130-400); RBC Distribution Width 13.1 % (11.5-14.5); Red Blood Cell (RBC) Count 5.19 mill/uL (4.20-5.40); White Blood Cell (WBC) Count 8.6 thou/uL (4.8-10.8)
--- NOTE | 2019-06-01 22:15 | RAD ---
XR Chest 1 View Portable History: Cough Comparison: Radiograph May 11, 2019 Findings: Single lead AICD. Lungs are without confluent airspace consolidation, pneumothorax, or effu zee. Heart size upper limits of normal. Normal midline sternotomy wires. No acute osseous abnormality. Impression: No acute intrathoracic abnormality. No significant change given differences in technique.
[2019-06-01 22:19] LABS: ALT (SGPT) 19 U/L (8-55); AST (SGOT) 13 U/L (5-34); Alkaline Phosphatase 128 U/L (40-110); Anion Gap 12 mmol/L (10-20); BUN (Urea Nitrogen) 14 mg/dL (9.8-20.1); Bilirubin, Total Less than 0.2 mg/dL (0.2-1.2); CK (CPK) 109 U/L (29-168); Calc. Creatinine Clearance 0 mL/min (70-130); Calcium 9.5 mg/dL (7.8-10.44); Carbon Dioxide 33 mmol/L (22-29); Chloride 100 mmol/L (98-107); Estimated GFR-MDRD 71; Globulin 3.2 g/dL (2.4-3.5); Glucose 240 mg/dL (70-105); Potassium 3.2 mmol/L (3.5-5.1); Protein, Total 7.2 g/dL (6.0-8.3); Sodium 142 mmol/L (136-145)
[2019-06-01] MEDS ORDERED: methylPREDNISolone Sod Succ/PF 125 MG/2 ML VIAL ONE (23:47)
[2019-06-02] MEDS ORDERED: Magnesium 2 GM/50 ML BAG (IN WATER) ONE (00:11)
[2019-06-02] MEDS ORDERED: Ondansetron ODT 4 MG TAB PO PRN (00:35)
[2019-06-02] MEDS ORDERED: Furosemide 20 MG TAB PO PRN (00:39)
[2019-06-02] MEDS ORDERED: Nitroglycerin 0.4 MG TAB (25 Tab Bottle) SL SCH (00:45)
[2019-06-02] MEDS ORDERED: Dextrose 50% Abboject 50 ML SYRINGE SLOW IVP PRN (00:53)
[2019-06-02] MEDS ORDERED: Dextrose 5% in Water 1,000 ML IV PRN (00:53)
--- NOTE | 2019-06-02 01:02 | PDOC.EVN ---
Event Note - Event Note Event Note: [id number]
[2019-06-02] MEDS: Azithromycin 500 MG in Sodium Chloride 0.9% 250 ML 250 ML IVPB SCH (03:25)
[2019-06-02 03:42] VITALS: BMI 32.2
[2019-06-02] MEDS ORDERED: Potassium Chloride 20 MEQ TAB PO SCH (04:00)
--- NOTE | 2019-06-02 04:27 | HP ---
CHIEF COMPLAINT: Shortness of breath. HISTORY OF PRESENT ILLNESS: Ms. Ramsay is a 58-year-old female with past medical history of congestive heart failure, coronary artery disease, COPD, cigarette smoker, endometrial cancer, diabetes type 2, hypertension, among others; presents to the emergency room with shortness of breath that has been going on for the last few weeks, got worse in the last 24 hours. Oxygen saturation was 88% on room air. The patient was in respiratory distress, wheezing, the patient has been taking 40 mg of p.o. Lasix in the morning and 20 mg at p.m. Chest x-ray was unremarkable, BNP is normal, the patient had wheezing and distress, was given bronchodilators, IV Solu-Medrol, placed on nasal cannula with oxygen saturation of 93% on 2 L/minute nasal cannula. The patient's chest x-ray unremarkable. Troponin 0.01. The patient is being admitted to hospital for further management. PAST MEDICAL HISTORY: 1. Endometrial cancer. 2. Congestive heart failure. 3. Coronary artery disease. 4. COPD. 5. Hypertension. 6. Myocardial infarction. 7. Obstructive sleep apnea. 8. Diabetes mellitus, type 2. 9. Anxiety. 10. Depression. PAST SURGICAL HISTORY: 1. Coronary artery bypass graft surgery. 2. Stent in the heart. 3. Cholecystectomy. 4. Corneal transplant, bilateral eye. 5. Hysterectomy. FAMILY HISTORY: Reviewed and noncontributory. SOCIAL HISTORY: The patient smokes cigarettes, smokes 1.5 packs per day, denies alcohol drinking. FAMILY HISTORY: Reviewed, noncontributory. ALLERGIES: ALLERGIC TO; 1. MONTELUKAST. 2. ZOFRAN. 3. TIZANIDINE. 4. TORADOL. 5. TRAMADOL. 6. ZANAFLEX. 7. ZOFRAN. HOME MEDICATIONS: Please see home medication reconciliation form for updated medications. REVIEW OF SYSTEMS: Review of 14 systems negative except what is mentioned in the history of present illness. PHYSICAL EXAMINATION: GENERAL: The patient is awake, alert, in moderate respiratory distress. VITAL SIGNS: Blood pressure is 123/83, pulse is 91, temperature 98.5, oxygen saturation is 93% on 3 L/minute nasal cannula. HEAD: Normocephalic, atraumatic. NECK: Supple. CHEST: Bilateral expiratory wheeze. HEART: S1, S2. Regular. ABDOMEN: Soft, nontender. Bowel sounds present. NEUROLOGIC: Awake, alert, oriented. PSYCHIATRIC: Unable to assess. EXTREMITIES: No clubbing or cyanosis. LABORATORY DATA: Chest x-ray is unremarkable. Potassium is 3.2, glucose 240. BUN is 14, creatinine 0.8. WBC count is 8.6, hemoglobin 16.1, platelets 259. Troponin 0.01. ASSESSMENT AND PLAN: 1. Acute exacerbation of chronic obstructive pulmonary disease. 2. Congestive heart failure, chronic. 3. Cigarette smoker. 4. Obstructive sleep apnea. 5. Coronary artery disease. 6. Hypertension. PLAN: 1. Admit. 2. Oxygen to keep saturation more than 92%. 3. Bronchodilators scheduled and as needed. 4. IV steroids. 5. Empiric IV antibiotics. 6. Reconcile home medications. 7. DVT prophylaxis, low-dose heparin. 8. Expected length of stay 2 midnights or more. Job ID: [id number]
[2019-06-02] MEDS: Acetaminophen 325 MG TAB PO PRN ×2 (04:51→21:50)
[2019-06-02] MEDS: methylPREDNISolone Sod Succ 40 MG VIAL IVP SCH ×4 (04:57→23:40)
[2019-06-02] MEDS: HumaLOG 300 UNITS/3 ML VIAL SC PRN ×4 (05:51→20:47)
[2019-06-02] MEDS ORDERED: Non-Formulary Item 1 EACH (Levemir Flexpen [Levemir Flexpen] 20 UNITS) SC SCH (09:00)
[2019-06-02] MEDS: Aspirin 325 MG TAB PO SCH (09:46)
[2019-06-02] MEDS: Carvedilol 6.25 MG TAB PO SCH ×2 (09:46→20:45)
[2019-06-02] MEDS: Heparin 5,000 UNITS/ML VIAL SC SCH ×3 (09:46→20:46)
[2019-06-02] MEDS: Famotidine 20 MG TAB PO SCH ×2 (09:46→20:46)
[2019-06-02] MEDS: Lisinopril 5 MG TAB PO SCH (09:47)
[2019-06-02] MEDS: Insulin Glargine 20 UNITS in Pre-Filled Syringe 1 EACH SC SCH ×2 (11:32→20:46)
[2019-06-02] MEDS: Nicotine 21 MG PATCH TD SCH (12:25)
--- NOTE | 2019-06-02 13:10 | CON ---
DATE OF CONSULTATION: 06/02/2019 REASON FOR CONSULTATION: COPD exacerbation. HISTORY OF PRESENT ILLNESS: The patient is a 58-year-old female, who was admitted to the hospital last night with increasing shortness of breath, cough, and congestion over the last one month. She does feel better since starting treatment last night. She is a pack and half day smoker and really has no desire to quit, although she does understand that is what is killing her. PAST MEDICAL HISTORY: 1. COPD. 2. Congestive heart failure with systolic dysfunction. 3. Endometrial cancer. 4. Coronary artery disease. 5. Hypertension. 6. Myocardial infarction. 7. PAULINO. 8. Diabetes mellitus, type 2. 9. Anxiety. 10. Depression. PAST SURGICAL HISTORY: 1. Coronary artery bypass grafting surgery. 2. Coronary stent placement. 3. Cholecystectomy. 4. Corneal transplant. 5. Hysterectomy. 6. Defibrillator placement. FAMILY MEDICAL HISTORY: Unremarkable. She is adopted. SOCIAL HISTORY: She is a pack and half smoker a day. Does not consume alcohol. ALLERGIES: SINGULAIR, ZOFRAN, TIZANIDINE, TORADOL, TRAMADOL, ZANAFLEX. MEDICATIONS: Prior to admission, she is on; 1. Breo Ellipta inhaler at home. 2. DuoNeb. 3. Albuterol inhaler that she uses as needed. Additionally, she is on; 1. Coreg. 2. Aspirin. 3. Phenazopyridine. 4. Oxybutynin. 5. Coenzyme Q10. 6. Valerian root. 7. Advil. 8. Mucinex. 9. Lasix. 10. Proventil. 11. Phenergan. 12. Fiorinal. 13. Lyrica. 14. Zestril. 15. Lipitor. 16. Zoloft. REVIEW OF SYSTEMS: Twelve-point review of systems is otherwise negative. PHYSICAL EXAMINATION: VITAL SIGNS: Temperature 98.7, pulse 78, respirations 16, O2 saturation 92% on 3.5 L, and blood pressure 138/82. GENERAL: She is awake and alert, in no distress. HEENT: Pupils are reactive. Sclerae are anicteric. Oropharynx is clear without lesions. NECK: No adenopathy, JVD, or bruits. LUNGS: She has tight expiratory wheezing bilaterally with some crackles in the bases. She has a palpable pacemaker in left upper quadrant chest. CARDIAC: Regular rate and rhythm without murmur. ABDOMEN: Soft and nontender to palpation. EXTREMITIES: No clubbing, cyanosis, or edema. NEUROLOGIC: Nonfocal. LABORATORY DATA: Sodium 142, potassium 3.2, chloride 100, CO2 of 33, BUN 14, creatinine 0.8, glucose 240, alkaline phosphatase 128. BNP 52. White blood cell count 8.6, hematocrit 49.6, and platelet count 359. Her chest x-ray shows the defibrillator. No mass, effusion, or infiltrate. ASSESSMENT: 1. Chronic obstructive pulmonary disease with exacerbation. 2. Chronic hypercapnic and hypoxemic respiratory failure. 3. Tobacco abuse. 4. History of systolic heart dysfunction. PLAN: The patient is currently on corticosteroids, antibiotics, and nebulization treatments. I would go ahead and make her nebs scheduled every 4 hours. Additionally, I would treat her with long-acting beta-agonist and inhaled steroid. Dr. Macedo will reassume care tomorrow. The patient was told to quit smoking, but I do not think she will comply. Job ID: [id number]
--- NOTE | 2019-06-02 15:34 | PDOC.HOSPP ---
- Subjective Encounter Date: 06/02/19 Encounter Time: 10:00 Subjective: pt up in bed feels well but still needs oxygen. - Objective Vital Signs & Weight: Vital Signs (12 hours) Temp Pulse Resp BP Pulse Ox 06/02/19 14:28 84 16 94 L 06/02/19 13:32 98.3 F 87 18 132/83 94 L 06/02/19 11:36 98.7 F 88 16 138/82 92 L 06/02/19 07:55 98.0 F 90 18 140/84 92 L 06/02/19 06:56 96 16 96 06/02/19 04:00 97 Weight Weight 187 lb 14.4 oz Result Diagrams: 06/01/19 21:43 06/01/19 21:43 Additional Labs: Accuchecks 06/02/19 06/02/19 10:50 05:31 POC Glucose 452 H 422 H Hospitalist ROS - Review of Systems Cardiovascular: denies: chest pain, palpitations, orthopnea, paroxysmal noc. dyspnea, edema, light headedness, other Gastrointestinal: denies: nausea, vomiting, abdominal pain, diarrhea, constipation, melena, hematochezia, other Genitourinary: denies: dysuria, frequency, incontinence, hematuria, retention, other - Medication Medications: Active Medications Generic Name Dose Route Start Last Admin Trade Name Freq PRN Reason Stop Dose Admin Acetaminophen 650 mg 06/02/19 00:35 06/02/19 04:51 Tylenol PO 650 mg Q4H PRN Administration Headache/Fever/Mild Pain (1-3) Albuterol/Ipratropium 3 ml 06/02/19 14:30 06/02/19 14:28 Duoneb NEB 3 ml [id number] TIANNA Administration Aspirin 325 mg 06/02/19 09:00 06/02/19 09:46 Aspirin PO 325 mg DAILY TIANNA Administration Carvedilol 12.5 mg 06/02/19 09:00 06/02/19 09:46 Coreg PO 12.5 mg BID TIANNA Administration Famotidine 20 mg 06/02/19 09:00 06/02/19 09:46 Pepcid PO 20 mg BID TIANNA Administration Heparin Sodium (Porcine) 5,000 units 06/02/19 09:00 06/02/19 09:46 Heparin SC 5,000 units TID TIANNA Administration Azithromycin 500 mg/ Sodium 250 mls @ 250 mls/hr 06/02/19 02:00 06/02/19 03: 25 Chloride IVPB 250 mls 0200 TIANNA Administration Insulin Glargine 20 units/ 0.2 mls @ 0 mls/hr 06/02/19 09:00 06/02/19 11:32 Miscellaneous Medication SC 0.2 mls BID TIANNA Administration Insulin Human Lispro 0 units 06/02/19 00:53 06/02/19 11:33 Humalog SC 10 unit .MODERATE SLIDING SC PRN Administration Moderate Correctional Scale Lisinopril 5 mg 06/02/19 09:00 06/02/19 09:47 Zestril PO 5 mg DAILY TIANNA Administration Methylprednisolone Sodium Succinate 40 mg 06/02/19 06:00 06/02/19 11:32 Solu-Medrol IVP 40 mg Q6HR TIANNA Administration Nicotine 21 mg 06/02/19 12:00 06/02/19 12:25 Nicoderm Patch TD 21 mg 1200 TIANNA Administration - Exam ENT: negative: normocephalic atraumatic, no oropharyngeal lesions, moist mucosa , dry oral mucosa Neck: negative: supple, symmetric, no JVD, no thyromegaly, no lymphadenopathy, no carotid bruit, JVD Heart: negative: RRR, no murmur, no gallops, no rubs, normal peripheral pulses, irregular, diminshed peripheral pulses, murmur present, II/IV, III/IV Respiratory: wheezes Respiratory - other findings: diminished breath sounds all over Gastrointestinal: negative: soft, non-tender, non-distended, normal bowel sounds , no palpable masses, no hepatomegaly, no splenomegaly, no bruit, no guarding, no rigidity, tender to palpation, distended, diminished bowl sounds, voluntary guarding Hosp A/P (1) Diabetes type 2, uncontrolled Code(s): E11.65 - TYPE 2 DIABETES MELLITUS WITH HYPERGLYCEMIA Status: Acute (2) Obesity (BMI 30-39.9) Code(s): E66.9 - OBESITY, UNSPECIFIED Status: Chronic (3) COPD exacerbation Code(s): J44.1 - CHRONIC OBSTRUCTIVE PULMONARY DISEASE W (ACUTE) EXACERBATION Status: Acute (4) Acute respiratory failure with hypoxia Code(s): J96.01 - ACUTE RESPIRATORY FAILURE WITH HYPOXIA Status: Acute - Plan will continue nebs/steroids and abx. will order nicotine patch and will order cpap since she uses it at night but does not know her settings.
[2019-06-02] MEDS: Arformoterol 15 MCG/2 ML NEB NEB SCH (18:10)
[2019-06-02] MEDS: Budesonide 0.5 MG/2 ML NEB INH SCH (18:10)
[2019-06-02] MEDS: Atorvastatin Calcium 40 MG TAB PO SCH (20:46)
[2019-06-02] MEDS ORDERED: Insulin Glargine 20 UNITS in Pre-Filled Syringe 1 EACH SC SCH (21:00)
[2019-06-02] MEDS ORDERED: Pregabalin 75 MG CAP PO SCH (21:45)
[2019-06-02] MEDS ORDERED: Cyclobenzaprine 10 MG TAB PO SCH (21:45)
[2019-06-03] MEDS: Azithromycin 500 MG in Sodium Chloride 0.9% 250 ML 250 ML IVPB SCH (01:51)
[2019-06-03] MEDS: HumaLOG 300 UNITS/3 ML VIAL SC PRN ×3 (05:57→20:37)
[2019-06-03] MEDS: methylPREDNISolone Sod Succ 40 MG VIAL IVP SCH (05:58)
[2019-06-03] MEDS: Budesonide 0.5 MG/2 ML NEB INH SCH ×2 (08:07→18:25)
[2019-06-03] MEDS: Arformoterol 15 MCG/2 ML NEB NEB SCH ×2 (08:07→18:24)
[2019-06-03] MEDS: Aspirin 325 MG TAB PO SCH (09:15)
[2019-06-03] MEDS: Carvedilol 6.25 MG TAB PO SCH ×2 (09:19→20:36)
[2019-06-03] MEDS: Lisinopril 5 MG TAB PO SCH (09:20)
[2019-06-03] MEDS: Famotidine 20 MG TAB PO SCH ×2 (09:21→20:34)
[2019-06-03] MEDS: Acetaminophen 325 MG TAB PO PRN (09:22)
[2019-06-03] MEDS: Insulin Glargine 20 UNITS in Pre-Filled Syringe 1 EACH SC SCH (09:23)
[2019-06-03] MEDS: Heparin 5,000 UNITS/ML VIAL SC SCH ×3 (09:26→20:36)
[2019-06-03] MEDS ORDERED: HumaLOG 300 UNITS/3 ML VIAL SC SCH (12:00)
[2019-06-03] MEDS: Nicotine 21 MG PATCH TD SCH (13:05)
[2019-06-03] MEDS: Cyclobenzaprine 10 MG TAB PO SCH ×2 (15:17→20:34)
--- NOTE | 2019-06-03 15:41 | PRG ---
DATE OF SERVICE: 06/03/2019 SERVICE: Pulmonary Medicine. INTERVAL HISTORY: The patient is doing really well from respiratory standpoint. She has nearly returned to her usual state of health. She continues to have coughing. This is particularly with exertion or deep breathing. She has no complaints of fevers, chills, nausea, or vomiting. She is not bringing up much in the way of phlegm currently. Otherwise, she is returning to her usual state of health. In fact, she says she is 60% back to baseline. PHYSICAL EXAMINATION: VITAL SIGNS: Afebrile, pulse 86, blood pressure 121/80, respirations 20, and saturation 95% on 2 L nasal cannula. GENERAL: The patient is awake and alert, in no apparent distress. LUNGS: Wonderful air entry with no prolonged expiratory phase or wheezing present. HEART: Normal rate, regular. ABDOMEN: Soft, nontender, nondistended. Bowel sounds are positive. MUSCULOSKELETAL: No cyanosis or clubbing. No pitting in the bilateral lower extremities. NEUROLOGIC: Grossly nonfocal. LABORATORY DATA: Blood cultures x2 are unremarkable. Influenza A and B are negative. ASSESSMENT: 1. Acute hypoxic respiratory failure, resolving. 2. Asthma with acute exacerbation. 3. Acute on chronic systolic and diastolic heart failure. 4. Tobacco abuse. DISCUSSION AND PLAN: We will introduce a small dose of Lasix today and tomorrow morning. At this point, the patient is approaching baseline, so I will switch her steroids over to p.o. Antibiotics can be switched to p.o. in the morning and limited to a 5-day course if she is ready for discharge in the morning. Pulmonary/Critical Care will continue to follow along for the time being, but from my perspective, she is likely stable for transition home. Job ID: [id number]
--- NOTE | 2019-06-03 16:51 | PDOC.HOSPP ---
- Subjective Encounter Date: 06/03/19 Encounter Time: 13:45 Subjective: pt up in bed no complains - Objective Vital Signs & Weight: Vital Signs (12 hours) Temp Pulse Resp BP Pulse Ox 06/03/19 15:26 98.2 F 88 18 119/78 95 06/03/19 13:56 80 16 94 L 06/03/19 10:55 86 16 95 06/03/19 10:33 98.4 F 86 20 121/80 95 06/03/19 09:20 85 06/03/19 08:07 85 16 94 L 06/03/19 07:58 94 L 06/03/19 07:43 98.3 F 85 20 106/69 94 L Weight Weight 187 lb 14.4 oz Result Diagrams: 06/01/19 21:43 06/01/19 21:43 Additional Labs: Accuchecks 06/03/19 06/03/19 06/02/19 11:42 04:12 19:39 POC Glucose 321 H 376 H 443 H Hospitalist ROS - Review of Systems Cardiovascular: denies: chest pain, palpitations, orthopnea, paroxysmal noc. dyspnea, edema, light headedness, other Gastrointestinal: denies: nausea, vomiting, abdominal pain, diarrhea, constipation, melena, hematochezia, other Genitourinary: denies: dysuria, frequency, incontinence, hematuria, retention, other - Medication Medications: Active Medications Generic Name Dose Route Start Last Admin Trade Name Freq PRN Reason Stop Dose Admin Acetaminophen 650 mg 06/02/19 00:35 06/03/19 09:22 Tylenol PO 650 mg Q4H PRN Administration Headache/Fever/Mild Pain (1-3) Albuterol/Ipratropium 3 ml 06/02/19 14:30 06/03/19 13:56 Duoneb NEB 3 ml [id number] TIANNA Administration Arformoterol Tartrate 15 mcg 06/02/19 18:30 06/03/19 08:07 Brovana NEB 15 mcg BID-RT TIANNA Administration Aspirin 325 mg 06/02/19 09:00 06/03/19 09:15 Aspirin PO 325 mg DAILY TIANNA Administration Atorvastatin Calcium 80 mg 06/02/19 21:00 06/02/19 20:46 Lipitor PO 80 mg HS TIANNA Administration Budesonide 0.5 mg 06/02/19 18:30 06/03/19 08:07 Pulmicort Neb Solution INH 0.5 mg BID-RT TIANNA Administration Butalbital/Aspirin/Caffeine 1 tab 06/03/19 13:00 06/03/19 13:05 Fiorinal PO 1 tab QID TIANNA Administration Carvedilol 12.5 mg 06/02/19 09:00 06/03/19 09:19 Coreg PO 6.25 mg BID TIANNA Administration Cyclobenzaprine HCl 10 mg 06/03/19 15:00 06/03/19 15:17 Flexeril PO 10 mg TID TIANNA Administration Famotidine 20 mg 06/02/19 09:00 06/03/19 09:21 Pepcid PO 20 mg BID TIANNA Administration Heparin Sodium (Porcine) 5,000 units 06/02/19 09:00 06/03/19 15:17 Heparin SC 5,000 units TID TIANAN Administration Azithromycin 500 mg/ Sodium 250 mls @ 250 mls/hr 06/02/19 02:00 06/03/19 01: 51 Chloride IVPB 250 mls 0200 TIANNA Administration Insulin Human Lispro 0 units 06/02/19 00:53 06/03/19 05:57 Humalog SC 10 unit .MODERATE SLIDING SC PRN Administration Moderate Correctional Scale Lisinopril 5 mg 06/02/19 09:00 06/03/19 09:20 Zestril PO 5 mg DAILY TIANNA Administration Nicotine 21 mg 06/02/19 12:00 06/03/19 13:05 Nicoderm Patch TD 21 mg 1200 TIANNA Administration Sertraline HCl 100 mg 06/02/19 21:00 06/02/19 20:46 Zoloft PO 100 mg HS TIANNA Administration Sodium Chloride 10 ml 06/02/19 21:00 06/03/19 09:30 Flush - Normal Saline IVF 10 ml Q12HR TIANNA Administration - Exam Neck: negative: supple, symmetric, no JVD, no thyromegaly, no lymphadenopathy, no carotid bruit, JVD Heart: negative: RRR, no murmur, no gallops, no rubs, normal peripheral pulses, irregular, diminshed peripheral pulses, murmur present, II/IV, III/IV Respiratory: negative: CTAB, no wheezes, no rales, no ronchi, normal chest expansion, no tachypnea, normal percussion, rales, rhonchi, tachypneic, wheezes Hosp A/P (1) Diabetes type 2, uncontrolled Code(s): E11.65 - TYPE 2 DIABETES MELLITUS WITH HYPERGLYCEMIA Status: Acute (2) Obesity (BMI 30-39.9) Code(s): E66.9 - OBESITY, UNSPECIFIED Status: Chronic (3) COPD exacerbation Code(s): J44.1 - CHRONIC OBSTRUCTIVE PULMONARY DISEASE W (ACUTE) EXACERBATION Status: Acute (4) Acute respiratory failure with hypoxia Code(s): J96.01 - ACUTE RESPIRATORY FAILURE WITH HYPOXIA Status: Acute - Plan will continue nebs/steroids and abx. will order nicotine patch and will order cpap since she uses it at night but does not know her settings. 06/03 will change steroids to po. possible home in am.
[2019-06-03] MEDS: guaiFENesin ER 600 MG TAB PO SCH (20:34)
[2019-06-03] MEDS: Atorvastatin Calcium 40 MG TAB PO SCH (20:34)
[2019-06-03] MEDS ORDERED: Pregabalin 75 MG CAP PO SCH (21:00)
[2019-06-03] MEDS ORDERED: Insulin Glargine 25 UNITS in Pre-Filled Syringe 1 EACH SC SCH (21:00)
[2019-06-04] MEDS: Azithromycin 500 MG in Sodium Chloride 0.9% 250 ML 250 ML IVPB SCH (02:32)
[2019-06-04] MEDS: HumaLOG 300 UNITS/3 ML VIAL SC PRN ×2 (05:13→12:18)
[2019-06-04] MEDS ORDERED: Mometasone/Formoterol 120 PUFF INHALER INH SCH (06:30)
[2019-06-04] MEDS: Budesonide 0.5 MG/2 ML NEB INH SCH (06:40)
[2019-06-04] MEDS ORDERED: predniSONE 20 MG TAB PO SCH (08:00)
[2019-06-04 08:17] VITALS: BP 113/72; TEMP 98.6
[2019-06-04] MEDS ORDERED: methylPREDNISolone Sod Succ 40 MG VIAL IVP SCH (09:00)
[2019-06-04] MEDS ORDERED: Pregabalin 75 MG CAP PO SCH (09:00)
[2019-06-04] MEDS ORDERED: Insulin Glargine 25 UNITS in Pre-Filled Syringe 1 EACH SC SCH (09:00)
[2019-06-04] MEDS: Lisinopril 5 MG TAB PO SCH (09:13)
[2019-06-04] MEDS: Famotidine 20 MG TAB PO SCH (09:13)
[2019-06-04] MEDS: Cyclobenzaprine 10 MG TAB PO SCH (09:13)
[2019-06-04] MEDS: guaiFENesin ER 600 MG TAB PO SCH (09:14)
[2019-06-04] MEDS: Aspirin 325 MG TAB PO SCH (09:14)
[2019-06-04] MEDS: Carvedilol 6.25 MG TAB PO SCH (09:14)
[2019-06-04] MEDS: Heparin 5,000 UNITS/ML VIAL SC SCH (09:17)
[2019-06-04] MEDS ORDERED: Furosemide 40 MG/4 ML VIAL SLOW IVP SCH (09:45)
[2019-06-04] MEDS: Arformoterol 15 MCG/2 ML NEB NEB SCH (10:47)
--- NOTE | 2019-06-04 11:31 | PRG ---
DATE OF SERVICE: 06/04/2019 SERVICE: Pulmonary Medicine. INTERVAL HISTORY: The patient is doing fine from respiratory standpoint. She is down to room air today. On this, her saturations dropped off to 88%. That being said, she was not short of breath and had no complaints. She continues to cough a little bit, but she is less productive now. Otherwise, she is returning to her usual state of health and has no specific complaints. PHYSICAL EXAMINATION: VITAL SIGNS: Afebrile; pulse 78; blood pressure 113/72; respirations 20; saturation 97% on 0.5 L nasal cannula; on room air, she is 91%. HEENT: Normocephalic and atraumatic. Sclerae are white. Conjunctivae are pink. Oral mucosa is moist without lesions. LUNGS: Good air entry bilaterally. There is no prolonged expiratory phase or wheezing or rhonchi appreciated today, though dependent crackles are minimal. HEART: Normal rate, regular. ABDOMEN: Soft, nontender, and nondistended. Bowel sounds are positive. MUSCULOSKELETAL: No cyanosis or clubbing. Pitting edema is improved to 1+. LABORATORY DATA: Influenza A and B and blood cultures x2 are negative to date. ASSESSMENT: 1. Acute hypoxic respiratory failure, resolved. 2. Asthma with acute exacerbation, resolving. 3. Acute on chronic systolic and diastolic heart failure, improving. 4. Tobacco abuse. DISCUSSION AND PLAN: I will give the patient another dose of Lasix today. If she can walk around well without oxygen and develops no significant dyspnea that limits her activity, she can be considered for transition home today. She will need to complete a 7-day course of steroids and a 5-day course of antibiotic. Pulmonary will continue to follow, intermittently during this hospital stay. If she gets into trouble through the weekend, please call Dr. Flood, but from a purely respiratory perspective, she will likely be ready to go home once off oxygen. Job ID: [id number]
[2019-06-04] MEDS: Nicotine 21 MG PATCH TD SCH (12:19)
--- NOTE | 2019-06-04 18:42 | DIS ---
DATE OF ADMISSION: 06/02/2019 DATE OF DISCHARGE: 06/04/2019 DISCHARGE DIAGNOSES: 1. Chronic obstructive pulmonary disease exacerbation. 2. Acute respiratory failure with hypoxia. 3. Obesity. 4. Hypertension. 5. Diabetes. 6. Obesity. 7. Smoking cessation. HOSPITAL COURSE: The patient is a 58-year-old female, who initially presented to the hospital on 06/02, with complaints of shortness of breath. The patient is currently a smoker. She was found to have sats of 88% on room air. At this time, she was given breathing treatments, Lasix. Chest x-ray did not show any acute abnormalities. BNP was normal. Pulmonology also was consulted. She was put on antibiotics with neb treatments and steroids. She continued to improve throughout the hospital stay and she was seen by Pulmonary who recommended additional diuresis. She was ambulated per nursing staff for about 6 minutes and her oxygen saturations remained greater than 92%. The patient stated that she felt well. She will be discharged home. I have advised her to take the Lasix daily for the next 3 to 4 days. She normally takes it as needed. Also while she is on steroids, I have advised her to go up on her home dose of meal insulin from 10 units to 12-15 units based on her blood sugars. I have also asked to take her blood sugars at home. She will follow up with Pulmonology as outpatient. Her creatinine initially was mildly elevated, however, it is currently resolved. I have discontinued her ibuprofen. HOME MEDICATIONS: On discharge will be: 1. Carvedilol 12.5 daily. 2. Potassium 10 mEq twice a day. 3. Mucinex 1200 mg twice a day. 4. Flomax 0.4 daily as needed. 5. Lasix 40 mg b.i.d. p.r.n. I have told her to take it once a day for the next 3-4 days. 6. Lovenox 70/30 of 10 units q.i.d. 7. Lyrica 75 mg daily, 150 mg at bedtime. 8. Lisinopril 5 mg daily. 9. Atorvastatin 80 mg daily. 10. Zoloft 100 mg at bedtime. 11. Flexeril 10 mg t.i.d. 12. Carvedilol 6.25 in the morning and 12.5 at night. 13. Prednisone 40 mg for the next 4 days. 14. Levaquin next 5 days. 15. Levemir increased from 30 units twice a day to 32 units twice a day. 16. Aspirin 81 mg daily. PHYSICAL EXAMINATION: VITAL SIGNS: Temperature of 98.6, pulse 78, respirations 20, 97% on room air, blood pressure 113/72. GENERAL: She is awake, alert, and oriented x3. Does not appear in distress. CV: S1 and S2 present. No murmurs, rubs, or gallops. LUNGS: Clear to auscultation. DISCHARGE INSTRUCTIONS: Again, she will be discharged home. She will follow up with her primary and also with Dr. Ragland or Hellen, her restaurant hospitality manager, and I have asked her to increase her insulin based on her blood sugars to check her sugars more carefully at home given her being on steroids low sugar and a heart healthy diet. Also, I have advised her again smoking cessation. She was on the patch while she was in the hospital. I also told her to take the Lasix for the next 3-4 days and also to continue taking her potassium pills just for replacement while she is on the Lasix for 3-4 days. Job ID: [id number]
--- NOTE | 2019-06-05 03:41 | PQF ---
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 Clinical indicators are provided on the bottom of this form for your review Can you please further clarify the type and acuity of CHF? Please check appropriate box(s): HEART FAILURE: A. TYPE: [ ] Systolic / HFrEF [ ] Diastolic / HFpEF [ ] Combined Systolic / Diastolic B. ACUITY [ ] Acute [ ] Acute on Chronic [ ] Chronic [ ] Other diagnosis [ ] Unable to determine In addition, please specify: Present on Admission (POA): [ ] Yes [ ] No [ ] Unable to determine For continuity of documentation, please document condition throughout progress notes and discharge summary. Thank You. CLINICAL INDICATORS - SIGNS / SYMPTOMS / LABS PN pg.1 Dr. Macedo- Acute on chronic systolic and diastolic HF, improving H and P pg.1- Oxygen Saturation was 88% on room air H and P pg.1- Chest X ray was unremarkable, BNP is Normal- H and P pg.1 H and P pg.2- Congestive heart failure, Chronic Laboratory- BNP 52 RISKS: COPD exacerbation -H and P pg.1 Cigarette smoker- H and P pg.2 CAD- Consult pg.1 PAULINO- Consult pg.1 Hypertension Consult pg.1 DM- Consult pg.2 Obesity- DS pg.1 TREATMENTS: Chest X ray / Pulmonary Consult 2/ Corticosteroids, antibiotics and nebulization treatments- Consult pg.3 O2 Supplementation (This form is maintained as a part of the permanent medical record) 2014 [employer]. All Rights Reserved [email or web address]
--- NOTE | 2019-06-12 13:56 | EKG ---
Test Reason : Blood Pressure : / mmHG Vent. Rate : 102 BPM Atrial Rate : 050 BPM P-R Int : 000 ms QRS Dur : 092 ms QT Int : 538 ms P-R-T Axes : 000 151 103 degrees QTc Int : 701 ms Accelerated Junctional rhythm with Premature supraventricular complexes Right axis deviation Pulmonary disease pattern Nonspecific ST and T wave abnormality Abnormal ECG Confirmed by SIMONE BORJA MD ([id number]), supervising editor trailer EDY ABDUL ([id number]) on 06/12/2019 1:56:19 PM Referred By: Confirmed By:SIMONE BORJA MD
== END 2019-06-04 15:16 | disposition home or self-care (01) | DRG 189 ==
LOC: ERS 21:24 → 2NO 06-02 00:35 → T4-A 06-02 13:00
PROVIDERS: ADMIT Internal Medicine; ATTEND Internal Medicine
DX: J96.01 Acute respiratory failure with hypoxia (principal); J44.1 Chronic obstructive pulmonary disease with (acute) exacerbation; I50.22 Chronic systolic (congestive) heart failure; J45.901 Unspecified asthma with (acute) exacerbation; N20.0 Calculus of kidney; I25.10 Atherosclerotic heart disease of native coronary artery without angina pectoris; G47.33 Obstructive sleep apnea (adult) (pediatric); F41.9 Anxiety disorder, unspecified; F32.9 Major depressive disorder, single episode, unspecified; F17.210 Nicotine dependence, cigarettes, uncomplicated; C54.1 Malignant neoplasm of endometrium; E66.9 Obesity, unspecified; I11.0 Hypertensive heart disease with heart failure; E11.65 Type 2 diabetes mellitus with hyperglycemia; Z95.810 Presence of automatic (implantable) cardiac defibrillator; Z98.51 Tubal ligation status; I25.2 Old myocardial infarction; Z90.49 Acquired absence of other specified parts of digestive tract; Z90.710 Acquired absence of both cervix and uterus; Z88.5 Allergy status to narcotic agent; Z88.8 Allergy status to other drugs, medicaments and biological substances; Z79.51 Long term (current) use of inhaled steroids; Z79.899 Other long term (current) drug therapy; Z79.4 Long term (current) use of insulin; Z79.82 Long term (current) use of aspirin; Z94.7 Corneal transplant status; Z68.32 Body mass index [BMI] 32.0-32.9, adult
CPT/HCPCS: 36415; 36416; 71045; 80053; 82550; 83605; 83880; 84484; 85025; 87040; 87804; 93005; 94640; 94760; 96365; 96375; 99406; J0456; J1644; J1815; J1940; J2920; J2930; J3475; J7050; J7512; J7620; J7626

== ENCOUNTER 2019-06-21 17:16 | Inpatient (IN) | payer OTHER ==
[~2019-06-21 17:16] MED LIST: Iopamidol-370 76% 500 ML 1 ML ONE
--- NOTE | 2019-06-21 18:10 | RAD ---
SINGLE VIEW OF THE CHEST: Comparison: 06-01-2019 History: Shortness of breath, productive cough for one week. FINDINGS: Single view of the chest shows normal sized cardiomediastinal silhouette. The patient is status post sternotomy. The pacemaker is unchanged in position. There is no evidence of consolidation, mass, or p leural effusion. IMPRESSION: No evidence of acute cardiopulmonary disease. POS: C
[2019-06-21 18:17] LABS: #Basophils 0.1 thou/uL (0.0-0.2); #Eosinphils 0.1 thou/uL (0.0-0.7); #Lymphocytes 2.2 thou/uL (1.20-3.40); #Monocytes 0.6 thou/uL (0.11-0.59); #Neutrophils 3.8 thou/uL (1.40-6.50); %Eosinophils 2.2 % (0.0-10.0); %Lymphocytes 32.2 % (21.0-51.0); %Monocytes 8.7 % (0.0-10.0); %Neutrophils 55.9 % (42.0-75.0); Hemoglobin 16.1 g/dL (12.0-16.0); Mean Corpuscular HGB CONC 33.4 g/dL (32.0-36.0); Mean Corpuscular Hemoglobin 32.5 pg (27.0-31.0); Mean Corpuscular Volume 97.5 fL (78.0-98.0); Mean Platelet Volume 6.9 fL (7.4-10.4); Platelet Count 326 thou/uL (130-400); RBC Distribution Width 13.2 % (11.5-14.5); Red Blood Cell (RBC) Count 4.96 mill/uL (4.20-5.40); White Blood Cell (WBC) Count 6.8 thou/uL (4.8-10.8)
[2019-06-21] MEDS ORDERED: Sodium Chloride 0.9% 100 ML ONE (18:30)
[2019-06-21] MEDS ORDERED: cefTRIAXone\\ROCEPHIN 1 GM VIAL ONE (18:30)
[2019-06-21] MEDS ORDERED: methylPREDNISolone Sod Succ/PF 125 MG/2 ML VIAL ONE (18:30)
[2019-06-21 18:37] LABS: ALT (SGPT) 25 U/L (8-55); AST (SGOT) 15 U/L (5-34); Alkaline Phosphatase 125 U/L (40-110); Anion Gap 15 mmol/L (10-20); BUN (Urea Nitrogen) 19 mg/dL (9.8-20.1); Bilirubin, Total 0.2 mg/dL (0.2-1.2); Calc. Creatinine Clearance 0 mL/min (70-130); Calcium 9.8 mg/dL (7.8-10.44); Carbon Dioxide 27 mmol/L (22-29); Chloride 101 mmol/L (98-107); Estimated GFR-MDRD 63; Globulin 3.2 g/dL (2.4-3.5); Glucose 243 mg/dL (70-105); Lipase 15 U/L (8-78); Magnesium 1.6 mg/dL (1.6-2.6); Potassium 3.8 mmol/L (3.5-5.1); Protein, Total 7.2 g/dL (6.0-8.3); Sodium 139 mmol/L (136-145)
[2019-06-21] MEDS ORDERED: Magnesium 2 GM/50 ML BAG (IN WATER) ONE (19:25)
--- NOTE | 2019-06-21 20:27 | CT ---
CT angiogram chest: 06/21/2019 COMPARISON: 07/05/2018 HISTORY: Shortness of breath TECHNIQUE: Axial CT imaging at 2.5 mm intervals through the chest with IV contrast using CT angiogram protocol. Coronal and sagittal 3-D reformatted imaging obtained. FINDINGS: Midline sternotomy wires are present. There is a transvenous pacing device. No axillary, me diastinal, or hilar lymphadenopathy is noted. Limited assessment of the upper abdomen demonstrates no acute findings. No pleural, pericardial, or m ediastinal fluid. Coronary arterial calcification and/or stent material noted. There is no pneumothorax appreciated on either side. Minimal focal increased density within the poste rior aspect of the right upper lobe noted on axial image 26. This measures 2.1 x 0.5 cm and likely represents a focal area of volume loss or minimal infiltrate. There is no endobronchial lesion eviden t on this exam. Review of the pulmonary arterial vasculature demonstrates no evidence for acute pulmonary arterial em bolism. No acute osseous abnormality is evident. IMPRESSION: No evidence for acute pulmonary arterial embolism. Focal area of parenchymal opacity in t he posterior right upper lobe region, which is likely on the basis of mild inflammatory change or volume loss. Follow-up CT in 3-6 months advised to document resolution. CODE T Code lung nodule
[2019-06-21 21:56] LABS: Bilirubin Negative (Negative); Blood, Urine Trace (Negative); Clarity Turbid (Clear); Glucose, Urine (Dipstick) Normal (Negative); Leukocyte 500 Leu/uL (Negative); Nitrite Negative (Negative); Protein, Urine (Dipstick) 20 mg/dL (Neg-Trace); Squamous Epithelial 0-3 HPF (0-3); Urobilinogen Normal mg/dL (Less than 2); WBC/HPF Greater than 50 HPF (0-3); Yeast-Budding 1+ HPF (None Seen)
[2019-06-21 22:08] LABS: Bacteria/HPF 2+ HPF (None Seen)
[2019-06-21] MEDS ORDERED: Fioricet 325/50/40 mg Tablet PO PRN (22:18)
[2019-06-21] MEDS ORDERED: Dextrose 5% in Water 1,000 ML IV PRN (22:20)
[2019-06-21] MEDS ORDERED: Dextrose 50% Abboject 50 ML SYRINGE SLOW IVP PRN (22:20)
[2019-06-21] MEDS ORDERED: HumaLOG 300 UNITS/3 ML VIAL SC PRN (22:20)
[2019-06-21] MEDS ORDERED: Acetaminophen 650 MG Suppository PR PRN (22:21)
[2019-06-21] MEDS ORDERED: Acetaminophen 325 MG TAB PO PRN (22:21)
[2019-06-21] MEDS ORDERED: Fioricet 325/50/40 mg Tablet PO SCH (22:30)
[2019-06-21] MEDS: Nicotine 14 MG PATCH TD SCH (22:55)
[2019-06-21] MEDS: methylPREDNISolone Sod Succ 40 MG VIAL IVP SCH (22:56)
[2019-06-21] MEDS: HumaLOG 300 UNITS/3 ML VIAL SC PRN (23:02)
--- NOTE | 2019-06-22 00:26 | HP ---
TIME OF ASSESSMENT: 2100 hours. PRIMARY CARE PHYSICIAN: Felicitas Kerr MD CHIEF COMPLAINT: Shortness of breath and wheezing. HISTORY OF PRESENT ILLNESS: Ms. Ramsay is a 58-year-old woman with a history of asthma and known to be a heavy smoker, presenting with complaints of shortness of breath. She states she has developed a persistent dry cough and feels this is due to remodeling that is taking place in her home. She had been advised by the people working on her home to stay at a hotel or with family. The patient has continued to stay at home and states that her symptoms have progressively worsened. Today, she became more short of breath and states her symptoms were not relieved by DuoNebs at home. She also currently smokes 1-1/2 packs per day. On arrival to the emergency department, she was noted to have low sats of 89% on room air with a respiratory rate of 24. She was treated with Mag sulfate IV, a DuoNeb, given 125 mg IV of methylprednisolone and started on Rocephin for COPD exacerbation. The patient states her symptoms have significantly improved. However, she does have a mild headache that has been present since she presented to the ED. States she suffers from migraines that are usually managed with Fioricet. She has not received anything for the headache. REVIEW OF SYSTEMS: She denies having any fevers or chills. Denies any productive sputum or hemoptysis. No nausea or vomiting. No abdominal pain. No dizziness. No abdominal pain. No urinary symptoms. She has otherwise been well in recent days. ED COURSE: In the emergency department, the patient underwent an EKG showing normal sinus rhythm with a heart rate of 98. She had a chest x-ray done showing no evidence of acute cardiopulmonary process. A CT angiogram of the chest was also done, which showed no evidence for acute PE. There was a focal area of parenchymal opacity in the posterior right upper lobe region, felt to be on the basis of mild inflammatory change or volume loss. A followup CT in 3 to 6 months was recommended to assess for resolution. She was also given 1 L of normal saline in the ED. PAST MEDICAL HISTORY: 1. CAD. 2. AICD. 3. History of nephrolithiasis. 4. CHF. 5. Fibromyalgia. 6. Chronic headaches. 7. History of [place]. 8. Diabetes mellitus. 9. Hypertension. 10. Obstructive sleep apnea. 11. Asthma. 12. Heavy tobacco use. 13. Anxiety. 14. Depression. PAST SURGICAL HISTORY: 1. CABG x2. 2. Oral surgery. 3. Tubal ligation. 4. Coronary artery stent. 5. Cholecystectomy. 6. Bilateral corneal transplant. 7. Hysterectomy. SOCIAL HISTORY: The patient reports smoking 1-1/2 packs per day. Denies any alcohol consumption or illicit drug use. ALLERGIES: 1. KETORALAC. 2. MONTELUKAST. 3. ONDANSETRON. 4. TIZANIDINE. 5. TRAMADOL. 6. ZOFRAN. CURRENT MEDICATIONS: 1. Carvedilol. 2. Lasix. 3. Lisinopril. 4. Lyrica. 5. Proventil HFA. 6. Cyclobenzaprine. 7. Zoloft. 8. Lipitor. 9. Fioricet. 10. Promethazine. 11. Levemir. 12. NovoLog. 13. DuoNeb. 14. Breo Ellipta. 15. Tamsulosin. 16. Nitrostat. 17. Potassium citrate. 18. Oxybutynin. 19. Phenazopyridine. 20. Women's multivitamin. 21. Potassium gluconate. 22. Mucinex. 23. Advil. 24. Valerian root. 25. Aspirin. 26. CoQ10. 27. Estroven. PHYSICAL EXAMINATION: GENERAL: The patient appears well developed, well nourished, in no acute distress. VITAL SIGNS: Temp 97.8, HR 87, RR 18, O2 sat 95% on RA, BP 123/79. HEENT: Normocephalic and atraumatic. Pupils are equal, round, and reactive to light. Sclerae without icterus. Oropharynx is clear. NECK: Supple. LUNGS: With reduced air entry. The patient states she normally has difficulty with taking deep breaths. She has some mild audible wheezing, but states she feels significantly better than before. Breathing is unlabored. No tachypnea. CARDIAC: Regular rate and rhythm. ABDOMEN: Soft, obese, nontender, nondistended. Normoactive bowel sounds present. No guarding or rigidity. No renal angle tenderness. EXTREMITIES: No lower leg swelling or edema. NEUROLOGIC: Alert and oriented x3. SKIN: Warm and dry. No cyanosis. LABORATORY DATA: White count 6.8, hemoglobin 16.1, hematocrit 48.4, platelets 326, neutrophils 55.9. Sodium 139, potassium 3.8, BUN 19, creatinine 0.91, GFR 63, glucose 243, lactic acid 1.7, magnesium 1.6. LFTs unremarkable. Alkaline phosphatase 125. Troponin negative. BNP 12.1. TSH 1.1051. Urinalysis notable for turbid urine with trace blood, 500 leukocyte esterase, 7 to 10 red blood cells, greater than 50 white blood cells, 2+ bacteria and 1+ yeast as well as 4 to 6 hyaline casts. INVESTIGATIONS: As mentioned above in HPI. IMPRESSION AND PLAN: Ms. Ramsay is a 58-year-old woman, who has presented with shortness of breath and persistent cough, progressively worsening over 5 days, being admitted for the followin. Chronic obstructive pulmonary disease exacerbation. The patient states she has asthma, not chronic obstructive pulmonary disease and is normally seen by Dr. Macedo. She is requesting to be evaluated by him. Does not normally take steroids at home, only when she has flares and feels it was exacerbated by remodeling in her home. We will continue with methylprednisolone as she is still somewhat wheezing. Symptomatically, she has improved significantly. We will continue p.r.n. DuoNebs. Of note, given CT angiogram findings, she will need repeat CT chest in 3 to 6 months. 2. The patient does not use home oxygen. Order placed for home O2 eval to ensure she isn't deciding with activity as this seems to be a concern with her and requiring oxygen at home given the heavy tobacco use and underlying asthma. 3. Urinary tract infection. The patient with positive urinalysis and given Rocephin in the ED. We will continue IV antibiotics. Her urine culture pending. 4. Hypertension. Monitor blood pressure. Resume home medications once verified. 5. Headache. The patient suffers from chronic headaches. We will give a dose of Fioricet. This is what she normally takes at home. 6. Diabetes mellitus. Monitor blood glucose. Initiate insulin sliding scale and resume home medications once verified. 7. Coronary artery disease. Resume home medications once verified. 8. Anxiety/depression. Resume home medications once verified. 9. Gastrointestinal prophylaxis with famotidine. 10. Deep venous thrombosis prophylaxis. The patient is ambulatory. 11. Code status, full. Her surrogate decision maker is Sabine foley. Case discussed with attending, who agrees with the plan of care as described above. Job ID: [id number] MTDD
[2019-06-22 02:52] VITALS: BMI 36.8
[2019-06-22] MEDS: Fioricet 325/50/40 mg Tablet PO PRN ×2 (05:00→20:43)
[2019-06-22] MEDS: methylPREDNISolone Sod Succ 40 MG VIAL IVP SCH ×3 (05:01→17:48)
[2019-06-22 06:09] LABS: #Monocytes 0.2 thou/uL (0.11-0.59); #Neutrophils 5.7 thou/uL (1.40-6.50); %Basophils 0.1 % (0.0-1.0); %Eosinophils 0.3 % (0.0-10.0); %Lymphocytes 14.2 % (21.0-51.0); %Monocytes 3.4 % (0.0-10.0); Mean Corpuscular HGB CONC 31.4 g/dL (32.0-36.0); Mean Platelet Volume 7.4 fL (7.4-10.4); Platelet Count 336 thou/uL (130-400); RBC Distribution Width 13.2 % (11.5-14.5); Red Blood Cell (RBC) Count 4.84 mill/uL (4.20-5.40)
[2019-06-22 06:23] LABS: Anion Gap 16 mmol/L (10-20); BUN (Urea Nitrogen) 20 mg/dL (9.8-20.1); Calc. Creatinine Clearance 88 mL/min (70-130); Calcium 9.5 mg/dL (7.8-10.44); Carbon Dioxide 31 mmol/L (22-29); Chloride 100 mmol/L (98-107); Estimated GFR-MDRD 59; Glucose 398 mg/dL (70-105); Potassium 4.6 mmol/L (3.5-5.1); Sodium 142 mmol/L (136-145)
[2019-06-22] MEDS: Famotidine/PF 20 mg/2ml Vial SLOW IVP SCH ×2 (08:16→20:31)
[2019-06-22] MEDS ORDERED: Furosemide 20 MG TAB PO PRN (10:24)
[2019-06-22] MEDS ORDERED: Ibuprofen 200 MG TAB PO PRN (10:24)
[2019-06-22] MEDS ORDERED: Tamsulosin HCl 0.4 MG CAP PO PRN (10:24)
[2019-06-22] MEDS ORDERED: Furosemide 40 MG TAB PO PRN (10:43)
[2019-06-22] MEDS ORDERED: Ibuprofen 800 MG TAB PO PRN (10:43)
[2019-06-22] MEDS ORDERED: INSULIN ASPART SC SCH (12:00)
[2019-06-22] MEDS ORDERED: [UNRECOGNIZED DRUG - OTHER] SC SCH (12:00)
[2019-06-22] MEDS ORDERED: INSULIN ASPART PROTAMINE SC SCH (12:00)
[2019-06-22] MEDS: HumaLOG 300 UNITS/3 ML VIAL SC PRN ×2 (12:04→20:29)
[2019-06-22] MEDS: HumuLIN 70/30 (300 UNITS/3 ML VIAL) SC SCH ×3 (13:48→20:32)
[2019-06-22] MEDS: Cyclobenzaprine 10 MG TAB PO SCH ×2 (14:47→20:31)
[2019-06-22] MEDS: Lorazepam 0.5 MG TAB PO PRN (17:47)
[2019-06-22] MEDS: Bacteriostatic Water 30 ML VIAL FS PRN (17:48)
[2019-06-22] MEDS ORDERED: cefTRIAXone\\ROCEPHIN 2 GM in Sodium Chloride 0.9% 100 ML IVPB SCH (19:00)
--- NOTE | 2019-06-22 19:00 | PDOC.HOSPP ---
- Subjective Encounter Date: 06/22/19 Encounter Time: 10:00 Subjective: Pt seen for followup re; COPD exacerbation. Feels better today. - Objective Vital Signs & Weight: Vital Signs (12 hours) Temp Pulse Resp BP Pulse Ox 06/22/19 17:32 99.0 F 102 H 20 123/78 97 06/22/19 17:07 105 H 18 06/22/19 12:56 98.6 F 94 20 124/82 98 06/22/19 08:19 97.6 F 100 20 114/75 93 L 06/22/19 08:00 93 L Weight Weight 195 lb I&O: 06/21/19 06/22/19 06/23/19 06:59 06:59 06:59 Intake Total 720 Balance 720 Result Diagrams: 06/22/19 05:17 06/22/19 05:17 Additional Labs: Accuchecks 06/22/19 06/22/19 06/22/19 17:06 11:39 05:10 POC Glucose 356 H 344 H 399 H 06/21/19 22:58 POC Glucose 288 H Hospitalist ROS - Review of Systems Constitutional: denies: fever, chills, sweats, weakness, malaise Respiratory: reports: cough, dry, hemoptysis. denies: shortness of breath, SOB with excertion, pleuritic pain, wheezing Cardiovascular: denies: chest pain, palpitations, orthopnea, paroxysmal noc. dyspnea, edema, light headedness Gastrointestinal: denies: nausea, vomiting, abdominal pain, diarrhea, constipation, melena, hematochezia Genitourinary: denies: dysuria, frequency, incontinence, hematuria, retention - Medication Medications: Active Medications Generic Name Dose Route Start Last Admin Trade Name Freq PRN Reason Stop Dose Admin Acetaminophen/Butalbital/Caffeine 1 tab 06/22/19 04:46 06/22/19 05:00 Fioricet PO 06/24/19 04:47 1 tab Q4H PRN Administration Headache Albuterol/Ipratropium 3 ml 06/22/19 19:00 06/22/19 17:07 Duoneb NEB 3 ml [id number] TIANNA Administration Cyclobenzaprine HCl 10 mg 06/22/19 15:00 06/22/19 14:47 Flexeril PO 10 mg TID TIANNA Administration Famotidine 20 mg 06/22/19 09:00 06/22/19 08:16 Pepcid SLOW IVP 20 mg Q12HR TIANNA Administration Ceftriaxone Sodium 2 gm/ 100 mls @ 200 mls/hr 06/22/19 19:00 06/22/19 18:26 Sodium Chloride IVPB 100 mls Q24HR TIANNA Administration Ibuprofen 800 mg 06/22/19 10:43 06/22/19 12:02 Motrin PO 800 mg Q6H PRN Administration FEVER > 101, PAIN Insulin Human Isoph/Insulin Regular 10 units 06/22/19 12:00 06/22/19 17:48 Humulin 70/30 SC 10 unit QID-WM TIANNA Administration Insulin Human Lispro 0 units 06/21/19 22:20 06/21/19 23:02 Humalog SC 3 unit .BEDTIME SLIDING SC PRN Administration Bedtime Correctional Scale Insulin Human Lispro 0 units 06/22/19 05:24 06/22/19 12:04 Humalog SC 8 unit .MODERATE SLIDING SC PRN Administration Moderate Correctional Scale Lorazepam 0.25 mg 06/22/19 17:09 06/22/19 17:47 Ativan PO 0.25 mg BIDPRN PRN Administration Anxiety Methylprednisolone Sodium Succinate 40 mg 06/21/19 23:59 06/22/19 17:48 Solu-Medrol IVP 40 mg Q6HR TIANNA Administration Nicotine 14 mg 06/21/19 23:00 06/21/19 22:55 Nicoderm Patch TD 14 mg Q24HR TIANNA Administration Sterile Water 1 ml 06/21/19 22:19 06/22/19 17:48 Bacteriostatic Water FS 1 ml PRN PRN Administration RECONSTITUTION - Exam General - other findings: Obese Eye: anicteric sclera ENT: moist mucosa Neck: supple, symmetric, no thyromegaly, no lymphadenopathy Heart: RRR, no gallops, no rubs, normal peripheral pulses Respiratory: no rales, no ronchi, normal chest expansion, wheezes Gastrointestinal: soft, non-tender, non-distended, normal bowel sounds Extremities: no cyanosis Psychiatric: normal affect, normal behavior, A&O x 3 Hosp A/P (1) COPD exacerbation Code(s): J44.1 - CHRONIC OBSTRUCTIVE PULMONARY DISEASE W (ACUTE) EXACERBATION Status: Acute (2) UTI (urinary tract infection) Status: Acute (3) DM2 (diabetes mellitus, type 2) Status: Chronic (4) Ischemic cardiomyopathy Code(s): I25.5 - ISCHEMIC CARDIOMYOPATHY Status: Chronic (5) Hyperlipidemia Code(s): E78.5 - HYPERLIPIDEMIA, UNSPECIFIED Status: Chronic (6) Obesity (BMI 30-39.9) Code(s): E66.9 - OBESITY, UNSPECIFIED Status: Chronic - Plan continue antibiotics, respiratory therapy, out of bed/ambulate Continue oxygen, steroids, antibiotics and bronchodilators. Clinically improving. Blood sugars high. Home doses of insulin started today. Continue accuchecks and insulin sliding scale. HTN controlled. Continue statin.
[2019-06-22] MEDS: Atorvastatin Calcium 40 MG TAB PO SCH (20:29)
[2019-06-22] MEDS: Pregabalin 75 MG CAP PO SCH (20:30)
[2019-06-22] MEDS: Phenazopyridine HCl 97.5 MG TABLET PO SCH (20:31)
[2019-06-22] MEDS: guaiFENesin ER 600 MG TAB PO SCH (20:31)
[2019-06-22] MEDS: Carvedilol 6.25 MG TAB PO SCH (20:31)
[2019-06-22] MEDS: Insulin Glargine 30 UNITS in Pre-Filled Syringe 1 EACH SC SCH (20:32)
[2019-06-22] MEDS ORDERED: Non-Formulary Item 1 EACH (Atorvastatin Calcium [Lipitor] 80 MG) PO SCH (21:00)
[2019-06-22] MEDS ORDERED: Non-Formulary Item 1 EACH (Guaifenesin [Mucinex] 1,200 MG) PO SCH (21:00)
[2019-06-22] MEDS ORDERED: Pregabalin 75 MG CAP PO SCH (21:00)
[2019-06-22] MEDS ORDERED: Non-Formulary Item 1 EACH (Insulin Detemir [Levemir Flextouch] 30 UNIT) SQ SCH (21:00)
[2019-06-22] MEDS ORDERED: PHENAZOPYRIDINE HCL 100 MG PO SCH (21:00)
[2019-06-23] MEDS: methylPREDNISolone Sod Succ 40 MG VIAL IVP SCH ×4 (00:23→18:24)
[2019-06-23] MEDS: Nicotine 14 MG PATCH TD SCH (00:23)
[2019-06-23] MEDS: Bacteriostatic Water 30 ML VIAL FS PRN (00:23)
[2019-06-23] MEDS: HumaLOG 300 UNITS/3 ML VIAL SC PRN ×4 (05:27→20:53)
[2019-06-23] MEDS: Fioricet 325/50/40 mg Tablet PO PRN ×2 (08:36→15:31)
[2019-06-23] MEDS: Lisinopril 5 MG TAB PO SCH (08:37)
[2019-06-23] MEDS: Aspirin 325 MG TAB PO SCH (08:37)
[2019-06-23] MEDS: guaiFENesin ER 600 MG TAB PO SCH ×2 (08:37→20:52)
[2019-06-23] MEDS: Cyclobenzaprine 10 MG TAB PO SCH ×3 (08:38→20:53)
[2019-06-23] MEDS: Oxybutynin ER 5 MG TAB PO SCH (08:38)
[2019-06-23] MEDS: Carvedilol 6.25 MG TAB PO SCH ×2 (08:38→20:53)
[2019-06-23] MEDS: Famotidine/PF 20 mg/2ml Vial SLOW IVP SCH ×2 (08:39→20:53)
[2019-06-23] MEDS: Ubidecarenone 50 MG CAP PO SCH (08:39)
[2019-06-23] MEDS: Phenazopyridine HCl 97.5 MG TABLET PO SCH ×2 (08:39→20:54)
[2019-06-23] MEDS: Insulin Glargine 30 UNITS in Pre-Filled Syringe 1 EACH SC SCH (08:40)
[2019-06-23] MEDS: HumuLIN 70/30 (300 UNITS/3 ML VIAL) SC SCH ×4 (08:40→20:53)
[2019-06-23] MEDS: ESTROVEN PO SCH (08:41)
[2019-06-23] MEDS: VALERIAN ROOT PO SCH (08:41)
[2019-06-23] MEDS ORDERED: [UNRECOGNIZED DRUG - OTHER] PO SCH (09:00)
[2019-06-23] MEDS ORDERED: SOY ISOFLA PO SCH (09:00)
[2019-06-23] MEDS ORDERED: BLK COHOSH PO SCH (09:00)
[2019-06-23] MEDS ORDERED: Non-Formulary Item 1 EACH (Ubidecarenone [Co Q-10] 100 MG) PO SCH (09:00)
[2019-06-23] MEDS ORDERED: VALERIAN ROOT PO SCH (09:00)
[2019-06-23] MEDS ORDERED: MAG BARK PO SCH (09:00)
--- NOTE | 2019-06-23 14:07 | PDOC.HOSPP ---
- Subjective Encounter Date: 06/23/19 Encounter Time: 09:00 Subjective: Pt seen for followup re: COPD exacerbation. Feels better today. - Objective Vital Signs & Weight: Vital Signs (12 hours) Temp Pulse Resp BP BP Pulse Ox 06/23/19 13:42 101 H 18 95 06/23/19 11:17 98.2 F 88 20 114/73 94 L 06/23/19 08:38 132/90 06/23/19 08:37 99 132/90 06/23/19 08:00 97.9 F 99 22 H 132/90 93 L 06/23/19 06:38 109 H 16 96 06/23/19 03:47 98.6 F Weight Weight 195 lb I&O: 06/22/19 06/23/19 06/24/19 06:59 06:59 06:59 Intake Total 720 240 Balance 720 240 Result Diagrams: 06/22/19 05:17 06/22/19 05:17 Additional Labs: Accuchecks 06/23/19 06/23/19 06/23/19 11:23 03:50 00:09 POC Glucose 364 H 294 H 279 H 06/22/19 06/22/19 20:32 17:06 POC Glucose 348 H 356 H Labs and MARs reviewed by me Hospitalist ROS - Review of Systems Respiratory: reports: cough, dry, SOB with excertion, wheezing. denies: shortness of breath, hemoptysis, pleuritic pain, sputum Cardiovascular: denies: chest pain, palpitations, orthopnea, paroxysmal noc. dyspnea, edema, light headedness - Medication Medications: Active Medications Generic Name Dose Route Start Last Admin Trade Name Freq PRN Reason Stop Dose Admin Acetaminophen/Butalbital/Caffeine 1 tab 06/22/19 04:46 06/23/19 08:36 Fioricet PO 06/24/19 04:47 1 tab Q4H PRN Administration Headache Albuterol/Ipratropium 3 ml 06/22/19 19:00 06/23/19 13:42 Duoneb NEB 3 ml [id number] TIANNA Administration Aspirin 325 mg 06/23/19 09:00 06/23/19 08:37 Aspirin PO 325 mg DAILY TIANNA Administration Atorvastatin Calcium 80 mg 06/22/19 21:00 06/22/19 20:29 Lipitor PO 80 mg HS TIANNA Administration Carvedilol 6.25 mg 06/23/19 09:00 06/23/19 08:38 Coreg PO 6.25 mg DAILY TIANNA Administration Carvedilol 12.5 mg 06/22/19 21:00 06/22/19 20:31 Coreg PO 12.5 mg HS TIANNA Administration Coenzyme Q10 100 mg 06/23/19 09:00 06/23/19 08:39 Coenzyme Q10 PO 100 mg DAILY TIANNA Administration Cyclobenzaprine HCl 10 mg 06/22/19 15:00 06/23/19 08:38 Flexeril PO 10 mg TID TIANNA Administration Famotidine 20 mg 06/22/19 09:00 06/23/19 08:39 Pepcid SLOW IVP 20 mg Q12HR TIANNA Administration Furosemide 40 mg 06/22/19 10:43 06/23/19 10:41 Lasix PO 40 mg BIDPRN PRN Administration EDEMA Guaifenesin 1,200 mg 06/22/19 21:00 06/23/19 08:37 Mucinex PO 1,200 mg Q12HR TIANNA Administration Ceftriaxone Sodium 2 gm/ 100 mls @ 200 mls/hr 06/22/19 19:00 06/22/19 18:26 Sodium Chloride IVPB 100 mls Q24HR TIANNA Administration Insulin Glargine 30 units/ 0.3 mls @ 0 mls/hr 06/22/19 21:00 06/23/19 08:40 Miscellaneous Medication SC 0.3 mls BID TIANNA Administration Ibuprofen 800 mg 06/22/19 10:43 06/22/19 12:02 Motrin PO 800 mg Q6H PRN Administration FEVER > 101, PAIN Insulin Human Isoph/Insulin Regular 10 units 06/22/19 12:00 06/23/19 11:58 Humulin 70/30 SC 10 unit QID-WM TIANNA Administration Insulin Human Lispro 0 units 06/21/19 22:20 06/22/19 20:29 Humalog SC 4 unit .BEDTIME SLIDING SC PRN Administration Bedtime Correctional Scale Insulin Human Lispro 0 units 06/22/19 05:24 06/23/19 11:59 Humalog SC 10 unit .MODERATE SLIDING SC PRN Administration Moderate Correctional Scale Lisinopril 5 mg 06/23/19 09:00 06/23/19 08:37 Zestril PO 5 mg DAILY TIANNA Administration Lorazepam 0.25 mg 06/22/19 17:09 06/22/19 17:47 Ativan PO 0.25 mg BIDPRN PRN Administration Anxiety Methylprednisolone Sodium Succinate 40 mg 06/21/19 23:59 06/23/19 11:58 Solu-Medrol IVP 40 mg Q6HR TIANNA Administration Nicotine 14 mg 06/21/19 23:00 06/23/19 00:23 Nicoderm Patch TD 14 mg Q24HR TIANNA Administration Oxybutynin Chloride 5 mg 06/23/19 09:00 06/23/19 08:38 Ditropan Xl PO Not Given DAILY TIANNA Estroven 155 Mg 0 each 06/23/19 09:00 06/23/19 08:41 Capsule PO Not Given DAILY TIANNA [Valerian Root] 2 0 each 06/23/19 09:00 06/23/19 08:41 Tab PO Not Given DAILY TIANNA Phenazopyridine HCl 97.5 mg 06/22/19 21:00 06/23/19 08:39 Azo Standard PO Not Given BID TIANNA Pregabalin 150 mg 06/22/19 21:00 06/22/19 20:30 Lyrica PO 150 mg HS TIANNA Administration Sertraline HCl 100 mg 06/22/19 21:00 06/22/19 20:29 Zoloft PO 100 mg HS TIANNA Administration Sterile Water 1 ml 06/21/19 22:19 06/23/19 00:23 Bacteriostatic Water FS 1 ml PRN PRN Administration RECONSTITUTION - Exam General - other findings: Obese Eye: anicteric sclera ENT: moist mucosa Neck: supple, no lymphadenopathy Heart: RRR, no rubs Respiratory: wheezes Gastrointestinal: soft, non-tender Extremities: 1+ LE edema Musculoskeletal: no muscle wasting Psychiatric: normal affect, normal behavior Hosp A/P (1) COPD exacerbation Code(s): J44.1 - CHRONIC OBSTRUCTIVE PULMONARY DISEASE W (ACUTE) EXACERBATION Status: Acute (2) UTI (urinary tract infection) Status: Acute (3) DM2 (diabetes mellitus, type 2) Status: Chronic (4) Ischemic cardiomyopathy Code(s): I25.5 - ISCHEMIC CARDIOMYOPATHY Status: Chronic (5) Hyperlipidemia Code(s): E78.5 - HYPERLIPIDEMIA, UNSPECIFIED Status: Chronic (6) Obesity (BMI 30-39.9) Code(s): E66.9 - OBESITY, UNSPECIFIED Status: Chronic - Plan Continue oxygen, steroids, antibiotics and bronchodilators. Clinically improving. Blood sugars high. Increase Lantus to 40 units BID and switch to aggressive ISS. HTN controlled. Continue statin. Switch to oral antibiotics.
[2019-06-23] MEDS ORDERED: Insulin Glargine 10 UNITS in Pre-Filled Syringe 1 EACH SC SCH (14:15)
[2019-06-23] MEDS ORDERED: Furosemide 40 MG/4 ML VIAL SLOW IVP SCH (17:00)
[2019-06-23] MEDS: Atorvastatin Calcium 40 MG TAB PO SCH (20:52)
[2019-06-23] MEDS: Pregabalin 75 MG CAP PO SCH (20:52)
[2019-06-23] MEDS: Insulin Glargine 40 UNITS in Pre-Filled Syringe 1 EACH SC SCH (20:52)
[2019-06-23] MEDS: Cefdinir 300 MG CAP PO SCH (20:52)
[2019-06-24] MEDS: Nicotine 14 MG PATCH TD SCH (00:25)
[2019-06-24] MEDS: methylPREDNISolone Sod Succ 40 MG VIAL IVP SCH ×2 (00:25→05:06)
[2019-06-24] MEDS: Lorazepam 0.5 MG TAB PO PRN (00:25)
[2019-06-24] MEDS: Bacteriostatic Water 30 ML VIAL FS PRN (05:06)
[2019-06-24] MEDS: HumaLOG 300 UNITS/3 ML VIAL SC PRN ×2 (05:07→12:38)
[2019-06-24] MEDS ORDERED: predniSONE 20 MG TAB PO SCH (08:00)
[2019-06-24] MEDS: Insulin Glargine 40 UNITS in Pre-Filled Syringe 1 EACH SC SCH (08:13)
[2019-06-24] MEDS: HumuLIN 70/30 (300 UNITS/3 ML VIAL) SC SCH ×2 (08:14→12:38)
[2019-06-24] MEDS: Aspirin 325 MG TAB PO SCH (08:15)
[2019-06-24] MEDS: Famotidine/PF 20 mg/2ml Vial SLOW IVP SCH (08:15)
[2019-06-24] MEDS: Ubidecarenone 50 MG CAP PO SCH (08:16)
[2019-06-24] MEDS: Carvedilol 6.25 MG TAB PO SCH (08:16)
[2019-06-24] MEDS: Lisinopril 5 MG TAB PO SCH (08:17)
[2019-06-24] MEDS: Cefdinir 300 MG CAP PO SCH (08:17)
[2019-06-24] MEDS: Cyclobenzaprine 10 MG TAB PO SCH (08:17)
[2019-06-24] MEDS: Phenazopyridine HCl 97.5 MG TABLET PO SCH (08:18)
[2019-06-24] MEDS: VALERIAN ROOT PO SCH (08:19)
[2019-06-24] MEDS: guaiFENesin ER 600 MG TAB PO SCH (08:33)
[2019-06-24] MEDS: Oxybutynin ER 5 MG TAB PO SCH (08:34)
[2019-06-24] MEDS: ESTROVEN PO SCH (08:34)
[2019-06-24] MEDS ORDERED: Furosemide 40 MG/4 ML VIAL SLOW IVP SCH (09:00)
[2019-06-24] MEDS ORDERED: Pregabalin 75 MG CAP PO SCH (09:00)
--- NOTE | 2019-06-24 10:11 | DIS ---
DATE OF ADMISSION: 06/21/2019 DATE OF DISCHARGE: 06/23/2019 PRIMARY CARE PROVIDER: Dr. Felicitas Kerr. DISCHARGE DIAGNOSES: 1. Chronic obstructive pulmonary disease exacerbation. 2. Urinary tract infection. CONDITION OF THE PATIENT ON THE DAY OF DISCHARGE: Stable. I assessed Ms. Ramsay on the day of discharge. She denies any chest pain or shortness of breath. Vital signs are stable. S1 and S2 are heard, regular. Lungs are clear to auscultation bilaterally. CONSULTATIONS DURING THIS HOSPITALIZATION: Pulmonology, Dr. Macedo. POST-ACUTE CARE FOLLOWUP: With primary care provider in [address] Macedo in 2 to 3 weeks. DIET: Diabetic, heart healthy, and low-sodium. ACTIVITY: As tolerated. DISCHARGE MEDICATIONS: She is going home on Omnicef 300 mg two times a day for 1 week and oral prednisone taper. She was also recommended nicotine patch. Otherwise, no change was made to her pre-admission home medications. HOSPITAL COURSE: Ms. Ramsay is a pleasant 58-year-old lady who was admitted to [facility] on June 21, 2019 for COPD exacerbation and urinary tract infection. She improved with oxygen, steroids, bronchodilators, and antibiotics. She has been stepped down to oral antibiotics and oral steroids. Influenza test was negative at the time of admission. Final urine cultures grew mixed skin juan. Preliminary blood cultures are negative. She has been advised to follow up with her primary care provider for final blood culture results. Her blood sugars were elevated during this hospitalization, most likely secondary to intravenous steroid use. She has been advised to check her blood sugars 3 times a day and show the readings to her primary care provider. Many thanks for allowing me to participate in your patient's care. Please feel free to contact me with any questions or concerns. DISCHARGE DESTINATION: Home. TIME SPENT: Total amount of time spent coordinating this discharge: 33 minutes. Job ID: [id number]
--- NOTE | 2019-06-24 11:26 | CON ---
DATE OF CONSULTATION: 06/24/2019 SERVICE: Pulmonary Medicine. REASON FOR CONSULTATION: Asthma exacerbation. HISTORY OF PRESENT ILLNESS: The patient is a 58-year-old white female with past medical history significant for asthma. She was in her usual state of health until a week prior to presentation. Ultimately, she had increasing shortness of breath and cough. She was bringing up phlegm for a period of time, and had yellow and green character to it. When she stopped bringing up the phlegm, she started having increasing difficulties with her breathing. She presented to the emergency department. She was given steroids, antibiotics, and nebulized medications. She developed increasing lower extremity swelling. Ultimately, I was contacted per the patient's request. I was able to review some data yesterday and made some small changes/recommendations. This morning, she reports having slept very well last night. She denies any overnight fevers or chills. Her cough is improved, she is no longer bringing up any phlegm. Moreover, she has no feeling that she is not liberating any sputum. She has been able to walk without difficulties. She has been weaned down to room air and otherwise indicates that she has nearly returned to her usual state of health. She opened up beautifully with the Lasix that was provided yesterday. PAST MEDICAL HISTORY: 1. Asthma. 2. Coronary artery disease. 3. Chronic systolic and diastolic heart failure. 4. Fibromyalgia. 5. Migraine headache. 6. Type 2 diabetes mellitus. 7. Hypertension. 8. Dyslipidemia. 9. Obstructive sleep apnea. 10. Anxiety disorder. 11. Major depressive disorder. 12. Tobacco use. PAST SURGICAL HISTORY: 1. Coronary artery bypass graft x2 vessels. 2. Mouth surgery. 3. Tubal ligation. 4. Coronary artery stent. 5. Cholecystectomy. 6. Bilateral corneal transplant. 7. Hysterectomy. 8. AICD placement. SOCIAL HISTORY: She smokes 1-1/2 packs on a daily basis still. Denies any alcohol or illicit drug use. She has no exposure to chemicals, dust, asbestos or tuberculosis. FAMILY HISTORY: Noncontributory. ALLERGIES: KETOROLAC, MONTELUKAST, ZOFRAN, TIZANIDINE, TRAMADOL, AND ZOFRAN. MEDICATIONS: List of her inpatient medications was reviewed. Multiple updates were made including reintroducing her home Lasix. REVIEW OF SYSTEMS: General, head, ears, eyes, nose, throat, cardiovascular, respiratory, GI, , musculoskeletal, neurologic, and skin are negative except as mentioned in the HPI. PHYSICAL EXAMINATION: VITAL SIGNS: Afebrile, pulse 89, blood pressure 136/83, respirations 18, and saturation 97% on room air. GENERAL: The patient is awake and alert, in no apparent distress. LUNGS: Wonderful air entry. No prolonged expiratory phase or wheezing is present. HEART: Normal rate. Regular. ABDOMEN: Soft, nontender, and nondistended. Bowel sounds are positive. MUSCULOSKELETAL: No cyanosis or clubbing. Yesterday, she had 2+ pitting in the bilateral lower extremities, and today, it is trace to 1+. : No [facility]. NEUROLOGIC: Grossly nonfocal. LABORATORY DATA: Blood sugar ranges from 294 to 491. Basic metabolic profile is unremarkable. TSH is within the normal limits. BNP and troponin are unremarkable. Liver function studies are negative. Urinalysis is positive for pyuria and leukocyte esterase. WBC 7.0, hemoglobin 15.0, and platelets 336,000. Blood cultures x2, influenza A and B, and urine culture all negative to date. IMAGING: CT of the chest demonstrates no evidence of pulmonary emboli. This demonstrates interstitial edema throughout bilateral lung m[place]o. There is a little bit of atelectasis present in the right upper lobe, which takes on a plate-like/box-like appearance. The left ventricle is distended, the left atrium is quite enlarged. The right atrium and right ventricle are decompressed. No evidence of pulmonary embolism is present. I do not see any obvious overt consolidating lesions present. ASSESSMENT: 1. Acute hypoxic respiratory failure, resolved. 2. Asthma with acute exacerbation. 3. Tobacco abuse, ongoing. 4. Obstructive sleep apnea. 5. Acute on chronic systolic and diastolic heart failure. DISCUSSION AND PLAN: I gave her a dose of Lasix yesterday and this morning. Once her breathing opens up, she feels stable for transition home, she can complete a 5- to 7-day course of antibiotic, and a 10-day course of steroids. She will need to watch her lower extremity edema very closely in the outpatient setting. If she starts developing increasing swelling, she will need to notify her healthcare providers so that she can remain euvolemic. There are some subtle interstitial fullness in the bilateral lung macedo, which are obvious, particularly around the periphery. I am doubtful that she has true interstitial lung disease in favor this to be fluid related. Pulmonary/Critical Care will follow if she remains in-house, but from a purely respiratory perspective, she is stable for discharge today. Job ID: [id number]
[2019-06-24 11:54] VITALS: BP 126/85; TEMP 98.7
--- NOTE | 2019-06-27 21:18 | PQF ---
CHERRY WALDRON DAVID [id number] [id number]- [id number] CLINICAL DOCUMENTATION CLARIFICATION FORM: POST DISCHARGE Addendum to original discharge summary date: ____ Late entry note date: __ DATE: 06/27/2019 ATTN: MAMI QUINTERO Please exercise your independent, professional judgment in responding to the clarification form. Clinical indicators are provided on the bottom of this form for your review Diagnosis: Acute hypoxic respiratory failure Present on Admission (POA): [ x ] Yes [ ] No [ ] Unable to determine Coding guidelines require hospitals to identify whether a diagnosis was present on admission (POA) or not. To accurately assign the appropriate POA indicator, this information must be clearly documented within the medical record. CLINICAL INDICATORS - SIGNS / SYMPTOMS / LABS Acute hypoxic respiratory failure resolved -Documented in consultation report on 06/24 by Angel Macedo MD [id number] in ED on 06/21 by Marco Antonio Maxwell Patient presents for evaluation of SOB-Documented in ED on 06/21 by Marco Antonio Maxwell Hypoxia-Documented in ED on 06/21 by Marco Antonio Maxwell On arrival to the emergency department. She was noted to have low sats of 89 % on room air -Documented in H&P on 06/21 by Susan Choudhury PA-C The patient states she normally has difficulty with taking deep breath. she has some mild audible wheezing -Documented in H&P on 06/21 by Susan Choudhury- COPD exacerbation-Documented in H&P on 06/21 by Susan Choudhury RISK FACTORS: The patient reports smoking 1-1/2 packs per day -Documented in H&P on 06/21 by Susan Choudhury PA-C COPD exacerbation-Documented in H&P on 06/21 by Susan Choudhury TREATMENT: Order placed for home O2 eval to ensure she isn't deciding with activity as this seems to be a concern with her and requiring oxygen at home -Documented in H&P on 06/21 by Susan Choudhury Continue Oxygen, steroids , antibiotics and bronchodilators-Documented in hospitalist progress note on 06/22 by Continue respiratory therapy--Documented in hospitalist progress note on 06/22 by Telly MISHRA [employer] Saravanan Ashley (This form is maintained as a part of the permanent medical record) 2014 [employer], [employer]. All Rights Reserved [email or web address] [phone] MTDD
--- NOTE | 2019-06-28 00:34 | PQF ---
CHERRY WALDRON DAVID [id number] T4-A- [id number] [id number] CLINICAL DOCUMENTATION CLARIFICATION FORM: POST DISCHARGE Addendum to original discharge summary date: ____ Late entry note date: __ DATE:06/28/2019 ATTN: MAMI QUINTERO Please exercise your independent, professional judgment in responding to the clarification form. Clinical indicators are provided on the bottom of this form for your review Please check appropriate box(s): kindly clarify the diagnosis heart failure; [x ] Acute on chronic systolic and diastolic heart failure [ ] Chronic systolic and diastolic heart failure [ ] Other diagnosis [ ] Unable to determine In addition, please specify: Present on Admission (POA): [x ] Yes [ ] No [ ] Unable to determine For continuity of documentation, please document condition throughout progress notes and discharge summary. Thank You. CLINICAL INDICATORS - SIGNS / SYMPTOMS / LABS Acute on chronic systolic and diastolic heart failure -Documented in consultation report on 06/24 by jojo Macedo MD PMH-chronic systolic and diastolic heart failure -Documented in consultation report on 06/24 by jojo Macedo MD She developed increasing lower extremity swelling-Documented in consultation report on 06/24 by jojo Macedo MD She has been weaned down to room air and otherwise indicates that she has nearly returned to her usual state of health-Documented in consultation report on 06/24 by jojo Macedo MD yesterday she has 2+ pitting in the BLE, and today, it is trace to 1+- Documented in consultation report on 06/24 by jojo Macedo MD CXR: no evidence of consolidation, mass, or pleural effusion BNP-12.1-Documented in H&P on 06/21 by Susan Choudhury PA-C RISKS: PMH-chronic systolic and diastolic heart failure -Documented in consultation report on 06/24 by jojo Macedo MD TREATMENTS: She opened up beautifully with the Lasix that was provided yesterday-Documented in consultation report on 06/24 by jojo Macedo MD Lasix 40 mg IV -Documented in medication snapshot Lasix 40 mg PO -Documented in medication snapshot [employer]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 All Rights Reserved [email or web address]
== END 2019-06-24 13:09 | disposition home or self-care (01) | DRG 291 ==
LOC: ERS 17:16 → OBSVTOIN 19:43 → ERHOLD 19:43 → T4-A 21:57
PROVIDERS: ADMIT Internal Medicine; ATTEND Internal Medicine
DX: I11.0 Hypertensive heart disease with heart failure (principal); J96.01 Acute respiratory failure with hypoxia; J44.1 Chronic obstructive pulmonary disease with (acute) exacerbation; N39.0 Urinary tract infection, site not specified; I50.43 Acute on chronic combined systolic (congestive) and diastolic (congestive) heart failure; R26.9 Unspecified abnormalities of gait and mobility; G47.30 Sleep apnea, unspecified; M79.7 Fibromyalgia; E11.9 Type 2 diabetes mellitus without complications; F41.9 Anxiety disorder, unspecified; F32.9 Major depressive disorder, single episode, unspecified; Z95.5 Presence of coronary angioplasty implant and graft; Z90.49 Acquired absence of other specified parts of digestive tract; Z94.7 Corneal transplant status; F17.210 Nicotine dependence, cigarettes, uncomplicated; G47.33 Obstructive sleep apnea (adult) (pediatric); Z95.1 Presence of aortocoronary bypass graft; I25.10 Atherosclerotic heart disease of native coronary artery without angina pectoris; Z95.810 Presence of automatic (implantable) cardiac defibrillator; I25.2 Old myocardial infarction; Z98.51 Tubal ligation status; Z90.710 Acquired absence of both cervix and uterus; Z88.4 Allergy status to anesthetic agent; Z88.5 Allergy status to narcotic agent; Z88.8 Allergy status to other drugs, medicaments and biological substances; R51 Headache; I25.5 Ischemic cardiomyopathy; E66.9 Obesity, unspecified; Z68.36 Body mass index [BMI] 36.0-36.9, adult
CPT/HCPCS: 36415; 36416; 71045; 71275; 80048; 80053; 81003; 81015; 83605; 83690; 83735; 83880; 84443; 84484; 85025; 87040; 87086; 87804; 93005; 94640; 94760; 96365; 96367; 96375; J0696; J1815; J1940; J2920; J2930; J3475; J3490; J7512; J7620; Q9967; S0028

== ENCOUNTER 2019-08-15 16:35 | Observation (INO) | payer OTHER ==
[2019-08-15] MEDS ORDERED: Metoclopramide HCl 10 MG/2 ML VIAL ONE (17:01)
[2019-08-15 17:13] LABS: #Basophils 0.1 thou/uL (0.0-0.2); #Eosinphils 0.1 thou/uL (0.0-0.7); #Neutrophils 8.3 thou/uL (1.40-6.50); %Basophils 0.8 % (0.0-1.0); %Eosinophils 0.9 % (0.0-10.0); %Lymphocytes 17.1 % (21.0-51.0); %Monocytes 8.5 % (0.0-10.0); %Neutrophils 72.7 % (42.0-75.0); Hemoglobin 17.2 g/dL (12.0-16.0); Mean Corpuscular HGB CONC 34.2 g/dL (32.0-36.0); Mean Corpuscular Hemoglobin 32.4 pg (27.0-31.0); Mean Corpuscular Volume 94.6 fL (78.0-98.0); Mean Platelet Volume 7.8 fL (7.4-10.4); Platelet Count 448 thou/uL (130-400); RBC Distribution Width 14.3 % (11.5-14.5); Red Blood Cell (RBC) Count 5.31 mill/uL (4.20-5.40); White Blood Cell (WBC) Count 11.4 thou/uL (4.8-10.8)
[2019-08-15 17:43] LABS: ALT (SGPT) 20 U/L (8-55); AST (SGOT) 21 U/L (5-34); Alkaline Phosphatase 130 U/L (40-110); Anion Gap 18 mmol/L (10-20); BUN (Urea Nitrogen) 8 mg/dL (9.8-20.1); Bilirubin, Total 0.4 mg/dL (0.2-1.2); Calc. Creatinine Clearance 0 mL/min (70-130); Calcium 10.3 mg/dL (7.8-10.44); Carbon Dioxide 28 mmol/L (22-29); Chloride 98 mmol/L (98-107); Estimated GFR-MDRD 72; Globulin 4.1 g/dL (2.4-3.5); Glucose 110 mg/dL (70-105); Lipase 7 U/L (8-78); Protein, Total 8.1 g/dL (6.0-8.3); Sodium 141 mmol/L (136-145)
[2019-08-15 17:47] LABS: Potassium 2.6 mmol/L (3.5-5.1)
--- NOTE | 2019-08-15 18:29 | RAD ---
CHEST ONE VIEW: History: Chest pain, cough. Comparison: 06-21-2019 FINDINGS: Lungs are clear. No pneumothorax. No effusion. Cardiac silhouette and mediastinal contour is similar. Single lead defibrillator tip projects over the right ventricle. IMPRESSION: No acute intrathoracic abnormality. POS: HOME
[2019-08-15] MEDS ORDERED: Potassium Chloride 40 MEQ in Sodium Chloride 0.9% 250 ML 250 ML IVPB SCH (18:30)
[2019-08-15] MEDS ORDERED: Fentanyl 100 MCG/2 ML VIAL ONE (18:36)
[2019-08-15 18:43] LABS: Bilirubin Negative (Negative); Blood, Urine 1+ (Negative); Clarity Turbid (Clear); Glucose, Urine (Dipstick) Normal (Negative); Leukocyte 500 Leu/uL (Negative); Mucous/LPF Rare LPF (<2+); Nitrite Negative (Negative); Protein, Urine (Dipstick) 70 mg/dL (Neg-Trace); Renal Epithelial 0-3 HPF (None Seen); Squamous Epithelial 0-3 HPF (0-3); Urobilinogen Normal mg/dL (Less than 2); WBC/HPF Greater than 50 HPF (0-3); Yeast-Budding 1+ HPF (None Seen)
[2019-08-15 18:49] LABS: Bacteria/HPF 1+ HPF (None Seen)
[2019-08-15 18:50] LABS: Other Microscopic Description Less than 2 mL rec'd
[2019-08-15] MEDS ORDERED: HYDROcodone/Acetaminophen 5/325 mg Tablet PO PRN ×2 (21:52)
[2019-08-15] MEDS ORDERED: Acetaminophen 650 MG Suppository PR PRN (21:52)
[2019-08-15] MEDS ORDERED: Morphine 2 MG/ML SYRINGE SLOW IVP PRN (21:52)
[2019-08-15] MEDS ORDERED: Acetaminophen 325 MG TAB PO PRN (21:52)
[2019-08-15] MEDS: cefTRIAXone\\ROCEPHIN 2 GM in Sodium Chloride 0.9% 100 ML IVPB SCH (22:56)
[2019-08-15] MEDS: Sodium Chloride 0.9% 1,000 ML IV SCH (22:57)
--- NOTE | 2019-08-15 23:08 | PDOC.HHP ---
Hospitalist HPI - History of Present Illness general malaise / cough History of Present Illness: Case of an 58y/o female with pmhx of cad, chf, fibromyalgia, dm, htn and BA who comes to hospital due to general malaise and coug. patient refers she was on her usual state of health until 2 weeks ago when she started with fever, chills , malaise and dry cough. symptoms kept progressing until today when pt decided to come to hospital for evaluation. patient states she has a roomate that was having similar symptoms but improved while she got worse. at the ed patient was found to have tachycardia w uti and hospitalist was consulted for further evaluation and management. Hospitalist ROS - Review of Systems All other systems reviewed; all pertinent +/- noted in HPI/Subj - Medication Medications: Active Medications Generic Name Dose Route Start Last Admin Trade Name Freq PRN Reason Stop Dose Admin Hydrocodone Bitart/Acetaminophen 1 tab 08/15/19 21:52 08/15/19 22:59 [place] 5/325 PO 1 tab Q4H PRN Administration Moderate Pain (4-6) Ceftriaxone Sodium 2 gm/ 100 mls @ 200 mls/hr 08/15/19 22:00 08/15/19 22:56 Sodium Chloride IVPB 100 mls Q24HR TIANNA Administration Sodium Chloride 1,000 mls @ 50 mls/hr 08/15/19 22:00 08/15/19 22:57 Normal Saline 0.9% IV 1,000 mls .Q20H TIANNA Administration Hospitalist History - Past Medical History Cardiac: reports: CAD, CHF, HTN, Hyperlipidemia Endocrine: reports: Diabetes - Past Surgical History Past Surgical History: reports: Cholecystectomy, Hysterectomy - Family History Other Family History: pt is adopted - Social History Smoking Status: Never smoker Alcohol: reports: None Drugs: reports: none Living Situation: Friends Activity level: independent ambulation - Exam General Appearance: awake alert, ill appearing Eye: PERRL, anicteric sclera ENT: normocephalic atraumatic, no oropharyngeal lesions Neck: supple, symmetric, no JVD, no thyromegaly Heart: RRR, no murmur, diminshed peripheral pulses Respiratory: CTAB, no wheezes, no rales Gastrointestinal: soft, non-distended, normal bowel sounds, no palpable masses, no hepatomegaly, tender to palpation Extremities: no cyanosis, no clubbing Skin: normal turgor, no lesions Neurological: cranial nerve grossly intact, normal sensation to touch Musculoskeletal: normal tone, normal strength Psychiatric: normal affect, normal behavior, A&O x 3 Hospitalist Results - Labs Result Diagrams: 08/15/19 16:56 08/15/19 16:56 Lab results: WBC 11.4 thou/uL (4.8-10.8) H 08/15/19 16:56 Hgb 17.2 g/dL (12.0-16.0) H 08/15/19 16:56 Hct 50.2 % (36.0-47.0) H 08/15/19 16:56 MCV 94.6 fL (78.0-98.0) 08/15/19 16:56 Plt Count 448 thou/uL (130-400) H 08/15/19 16:56 Neutrophils % 72.7 % (42.0-75.0) 08/15/19 16:56 Sodium 141 mmol/L (136-145) 08/15/19 16:56 Potassium 2.6 mmol/L (3.5-5.1) L* 08/15/19 16:56 Chloride 98 mmol/L (98-107) 08/15/19 16:56 Carbon Dioxide 28 mmol/L (22-29) 08/15/19 16:56 BUN 8 mg/dL (9.8-20.1) L 08/15/19 16:56 Creatinine 0.82 mg/dL (0.6-1.1) 08/15/19 16:56 Glucose 110 mg/dL (70-105) H 08/15/19 16:56 Calcium 10.3 mg/dL (7.8-10.44) 08/15/19 16:56 Total Bilirubin 0.4 mg/dL (0.2-1.2) 08/15/19 16:56 AST 21 U/L (5-34) 08/15/19 16:56 ALT 20 U/L (8-55) 08/15/19 16:56 Alkaline Phosphatase 130 U/L (40-110) H 08/15/19 16:56 Serum Total Protein 8.1 g/dL (6.0-8.3) 08/15/19 16:56 Albumin 4.0 g/dL (3.5-5.0) 08/15/19 16:56 Lipase 7 U/L (8-78) L 08/15/19 16:56 Urine Ketones 10 mg/dL (Negative) A 08/15/19 18:28 Urine Blood 1+ (Negative) A 08/15/19 18:28 Urine Nitrite Negative (Negative) 08/15/19 18:28 Ur Leukocyte Esterase 500 Meghan/uL (Negative) A 08/15/19 18:28 Urine RBC 11-20 HPF (0-3) A 08/15/19 18:28 Urine WBC Greater than 50 HPF (0-3) A 08/15/19 18:28 Ur Squamous Epith Cells 0-3 HPF (0-3) 08/15/19 18:28 Urine Bacteria 1+ HPF (None Seen) A 08/15/19 18:28 - Radiology Interpretation Chest x-ray Status: image reviewed by me (no infiltrates, effusions or consolidations), report reviewed by mn Hospitalist H&P A/P - Problem (1) UTI (urinary tract infection) Status: Acute (2) Suspected COVID-19 virus infection Code(s): R68.89 - OTHER GENERAL SYMPTOMS AND SIGNS Status: Acute (3) Nausea & vomiting Code(s): R11.2 - NAUSEA WITH VOMITING, UNSPECIFIED Status: Acute (4) CHF (congestive heart failure) Code(s): I50.9 - HEART FAILURE, UNSPECIFIED Status: Acute (5) DM2 (diabetes mellitus, type 2) Status: Chronic (6) Hyperlipidemia Code(s): E78.5 - HYPERLIPIDEMIA, UNSPECIFIED Status: Chronic - Plan Plan: uti - pt complaining of suprapubic pain and dysuria, w an u/a consistent w uti, u/c and blood cultures were taken, will start pt on iv fluids and rocephin, f/u cultures covid r/o - pt refers sick contacts and worsening cough of 2weeks duration, adequate sat at ra, no leukopenia, none the less will start isolation protocol and send covid test, will provided o2 supplementation as needed nausea -vomiting - symptomatic tx prn, on iv hydration htn, cad, chf - continue home meds for chronic conditions dm - accu check and sliding scale, adjust as necessary
[2019-08-15] MEDS ORDERED: Dextrose 5% in Water 1,000 ML IV PRN (23:14)
[2019-08-15] MEDS ORDERED: Dextrose 50% Abboject 50 ML SYRINGE SLOW IVP PRN (23:14)
[2019-08-15] MEDS ORDERED: Magnesium 2 GM/50 ML 2 GM in Premix Bag 1 BAG IVPB SCH (23:15)
[2019-08-15 23:16] VITALS: BMI 34.9
[2019-08-16] MEDS: HumaLOG 300 UNITS/3 ML VIAL SC PRN ×2 (05:39→19:24)
[2019-08-16 05:51] LABS: #Basophils 0.1 thou/uL (0.0-0.2); #Eosinphils 0.1 thou/uL (0.0-0.7); #Lymphocytes 1.7 thou/uL (1.20-3.40); #Monocytes 1.1 thou/uL (0.11-0.59); #Neutrophils 5.8 thou/uL (1.40-6.50); %Basophils 0.8 % (0.0-1.0); %Eosinophils 1.1 % (0.0-10.0); %Lymphocytes 19.6 % (21.0-51.0); %Monocytes 12.4 % (0.0-10.0); %Neutrophils 66.2 % (42.0-75.0); Hemoglobin 13.9 g/dL (12.0-16.0); Mean Corpuscular HGB CONC 32.7 g/dL (32.0-36.0); Mean Corpuscular Hemoglobin 31.2 pg (27.0-31.0); Mean Corpuscular Volume 95.3 fL (78.0-98.0); Mean Platelet Volume 7.7 fL (7.4-10.4); Platelet Count 377 thou/uL (130-400); RBC Distribution Width 14.2 % (11.5-14.5); Red Blood Cell (RBC) Count 4.45 mill/uL (4.20-5.40); White Blood Cell (WBC) Count 8.8 thou/uL (4.8-10.8)
[2019-08-16 06:19] LABS: ALT (SGPT) 16 U/L (8-55); AST (SGOT) 17 U/L (5-34); Albumin 3.2 g/dL (3.5-5.0); Alkaline Phosphatase 99 U/L (40-110); Anion Gap 13 mmol/L (10-20); BUN (Urea Nitrogen) 9 mg/dL (9.8-20.1); Bilirubin, Total 0.3 mg/dL (0.2-1.2); Calc. Creatinine Clearance 85 mL/min (70-130); Calcium 8.6 mg/dL (7.8-10.44); Carbon Dioxide 28 mmol/L (22-29); Chloride 98 mmol/L (98-107); Estimated GFR-MDRD 60; Globulin 3.2 g/dL (2.4-3.5); Glucose 514 mg/dL (70-105); Potassium 2.9 mmol/L (3.5-5.1); Protein, Total 6.4 g/dL (6.0-8.3); Sodium 136 mmol/L (136-145)
[2019-08-16] MEDS ORDERED: Potassium Chloride 20 MEQ TAB PO SCH (06:45)
--- NOTE | 2019-08-16 08:28 | PDOC.HOSPP ---
- Subjective Encounter Date: 08/16/19 Encounter Time: 08:26 Subjective: Nausea, wants to smoke - Objective Vital Signs & Weight: Vital Signs (12 hours) Temp Pulse Resp BP Pulse Ox 08/16/19 02:55 97.8 F 95 16 111/69 94 L 08/15/19 22:30 98 08/15/19 22:25 99.4 F 113 H 24 H 121/73 92 L Weight Weight 184 lb 12.8 oz I&O: 08/15/19 08/16/19 08/17/19 06:59 06:59 06:59 Intake Total 3026 Output Total 600 Balance 2426 Result Diagrams: 08/16/19 05:34 08/17/19 04:53 Additional Labs: Accuchecks 08/16/19 05:35 POC Glucose 490 H Hospitalist ROS - Review of Systems Constitutional: reports: weakness Respiratory: reports: cough Gastrointestinal: reports: nausea Genitourinary: reports: dysuria - Medication Medications: Active Medications Generic Name Dose Route Start Last Admin Trade Name Freq PRN Reason Stop Dose Admin Hydrocodone Bitart/Acetaminophen 1 tab 08/15/19 21:52 08/15/19 22:59 [place] 5/325 PO 1 tab Q4H PRN Administration Moderate Pain (4-6) Ceftriaxone Sodium 2 gm/ 100 mls @ 200 mls/hr 08/15/19 22:00 08/15/19 22:56 Sodium Chloride IVPB 100 mls Q24HR TIANNA Administration Sodium Chloride 1,000 mls @ 50 mls/hr 08/15/19 22:00 08/15/19 22:57 Normal Saline 0.9% IV 1,000 mls .Q20H TIANNA Administration Insulin Human Lispro 0 units 08/15/19 23:14 08/16/19 05:39 Humalog SC 10 unit .MODERATE SLIDING SC PRN Administration Moderate Correctional Scale Potassium Chloride 40 meq 08/16/19 06:45 08/16/19 06:39 K-Dur PO 08/16/19 10:00 40 meq NOW TIANNA Administration - Exam General Appearance: awake alert Eye: PERRL, anicteric sclera ENT: normocephalic atraumatic Neck: supple, symmetric, no thyromegaly Heart: RRR, no murmur, no gallops, no rubs Respiratory: CTAB, no wheezes, no rales, no ronchi Gastrointestinal: soft, non-tender, non-distended, normal bowel sounds Extremities: no cyanosis, no clubbing, no edema Neurological: cranial nerve grossly intact, normal sensation to touch, no weakness, no focal deficits Musculoskeletal: normal tone, normal strength, no muscle wasting Psychiatric: normal affect, normal behavior, A&O x 3 Hosp A/P (1) Nausea & vomiting Code(s): R11.2 - NAUSEA WITH VOMITING, UNSPECIFIED Status: Acute (2) Suspected COVID-19 virus infection Code(s): R68.89 - OTHER GENERAL SYMPTOMS AND SIGNS Status: Acute (3) UTI (urinary tract infection) Status: Acute (4) DM2 (diabetes mellitus, type 2) Status: Chronic (5) Hyperlipidemia Code(s): E78.5 - HYPERLIPIDEMIA, UNSPECIFIED Status: Chronic - Plan old records reviewed/req Admitted for weakness,dysuria, nausea,vomiting,cough Suspected UTI: Continue IV Ceftrixone Follow upon cx Cough, SOB:Follow upon Covid 19 results Nausea and Vomiting: Symptomatic treatment Hypokalemia: Replace HTN/HLD/DM:Continue home meds
[2019-08-16] MEDS ORDERED: Insulin Glargine 30 UNITS in Pre-Filled Syringe 1 EACH SC SCH (09:00)
[2019-08-16] MEDS: Enoxaparin Sodium 40 MG/0.4 ML SYRINGE SC SCH (09:39)
[2019-08-16] MEDS: Famotidine 20 MG TAB PO SCH ×2 (09:39→20:59)
[2019-08-16] MEDS ORDERED: Lorazepam 1 MG TAB PO PRN (12:28)
[2019-08-16] MEDS: Nicotine 14 MG PATCH TOP SCH (13:21)
[2019-08-16] MEDS ORDERED: Nitroglycerin 0.4 MG TAB (25 Tab Bottle) SL PRN (17:55)
[2019-08-16] MEDS ORDERED: VALERIAN ROOT PO PRN (17:55)
[2019-08-16] MEDS ORDERED: Promethazine 25 MG TAB PO PRN (17:55)
[2019-08-16] MEDS ORDERED: PROVENTIL INHALER 6.7 G (200 INHALATIONS) INH PRN (17:55)
[2019-08-16] MEDS ORDERED: Tamsulosin HCl 0.4 MG CAP PO PRN (17:55)
[2019-08-16] MEDS ORDERED: Ibuprofen 800 MG TAB PO PRN (17:55)
[2019-08-16] MEDS ORDERED: Albuterol 200 PUFF (6.7GM INHALER) INH PRN (19:15)
[2019-08-16] MEDS: Sodium Chloride 0.9% 1,000 ML IV SCH (20:56)
[2019-08-16] MEDS: Cyclobenzaprine 10 MG TAB PO SCH (20:58)
[2019-08-16] MEDS: guaiFENesin ER 600 MG TAB PO SCH (21:00)
[2019-08-16] MEDS ORDERED: Carvedilol 6.25 MG TAB PO SCH (21:00)
[2019-08-16] MEDS ORDERED: Atorvastatin Calcium 40 MG TAB PO SCH (21:00)
[2019-08-16] MEDS ORDERED: Pregabalin 75 MG CAP PO SCH (21:00)
[2019-08-16] MEDS ORDERED: Non-Formulary Item 1 EACH (Insulin Detemir [Levemir Flextouch] 30 UNIT) SQ SCH (21:00)
[2019-08-16] MEDS: cefTRIAXone\\ROCEPHIN 2 GM in Sodium Chloride 0.9% 100 ML IVPB SCH (21:20)
[2019-08-16] MEDS: HumuLIN 70/30 (300 UNITS/3 ML VIAL) SC SCH (21:34)
[2019-08-16] MEDS: Insulin Glargine 30 UNITS in Pre-Filled Syringe 1 EACH SC SCH (21:35)
[2019-08-17 05:43] LABS: Anion Gap 11 mmol/L (10-20); BUN (Urea Nitrogen) 9 mg/dL (9.8-20.1); Calc. Creatinine Clearance 127 mL/min (70-130); Calcium 8.7 mg/dL (7.8-10.44); Carbon Dioxide 27 mmol/L (22-29); Chloride 105 mmol/L (98-107); Estimated GFR-MDRD 87; Glucose 232 mg/dL (70-105); Potassium 3.5 mmol/L (3.5-5.1); Sodium 139 mmol/L (136-145)
[2019-08-17] MEDS: Furosemide 40 MG TAB PO SCH ×2 (06:17→12:59)
[2019-08-17] MEDS: Albuterol 200 PUFF (6.7GM INHALER) INH SCH ×3 (06:23→13:49)
[2019-08-17] MEDS: HumaLOG 300 UNITS/3 ML VIAL SC PRN (06:25)
[2019-08-17] MEDS ORDERED: Mometasone 100 MCG/Formoterol 5 MCG 120 PUFF INHALER INH SCH (06:30)
[2019-08-17] MEDS ORDERED: Potassium Citrate 10 MEQ TAB PO SCH (08:00)
[2019-08-17] MEDS: Cyclobenzaprine 10 MG TAB PO SCH (08:52)
[2019-08-17] MEDS: Enoxaparin Sodium 40 MG/0.4 ML SYRINGE SC SCH (08:52)
[2019-08-17] MEDS: Famotidine 20 MG TAB PO SCH (08:52)
[2019-08-17] MEDS: guaiFENesin ER 600 MG TAB PO SCH (08:52)
[2019-08-17] MEDS: Insulin Glargine 30 UNITS in Pre-Filled Syringe 1 EACH SC SCH (08:53)
[2019-08-17] MEDS ORDERED: Pregabalin 75 MG CAP PO SCH (09:00)
[2019-08-17] MEDS ORDERED: Ubidecarenone 50 MG CAP PO SCH (09:00)
[2019-08-17] MEDS ORDERED: Aspirin 325 MG TAB PO SCH (09:00)
[2019-08-17] MEDS ORDERED: MAG BARK PO SCH (09:00)
[2019-08-17] MEDS ORDERED: SOY ISOFLA PO SCH (09:00)
[2019-08-17] MEDS ORDERED: Carvedilol 6.25 MG TAB PO SCH (09:00)
[2019-08-17] MEDS ORDERED: Non-Formulary Item 1 EACH (Fluticasone/Vilanterol [Breo Ellipta] 1 INH) IH SCH (09:00)
[2019-08-17] MEDS ORDERED: BLK COHOSH PO SCH (09:00)
[2019-08-17] MEDS ORDERED: [UNRECOGNIZED DRUG - OTHER] PO SCH (09:00)
[2019-08-17] MEDS ORDERED: Multivitamin W/ Minerals 1 TAB PO SCH (09:00)
[2019-08-17] MEDS ORDERED: Lisinopril 5 MG TAB PO SCH (09:00)
[2019-08-17] MEDS ORDERED: POTASSIUM GLUCONATE 595 MG PO SCH (09:00)
[2019-08-17] MEDS: HumuLIN 70/30 (300 UNITS/3 ML VIAL) SC SCH ×2 (09:09→12:57)
[2019-08-17 12:29] VITALS: BP 115/74; TEMP 98.1
[2019-08-17] MEDS: Nicotine 14 MG PATCH TOP SCH (12:58)
--- NOTE | 2019-08-17 20:32 | DIS ---
DATE OF ADMISSION: 08/15/2019 DATE OF DISCHARGE: 08/17/2019 ADMISSION DIAGNOSES: 1. Nausea, vomiting. 2. Dysuria. 3. Coronary artery disease. 4. Congestive heart failure. 5. Fibromyalgia. 6. Diabetes. 7. Hypertension. DISCHARGE DIAGNOSES: 1. Nausea, vomiting. 2. Dysuria. 3. Coronary artery disease. 4. Congestive heart failure. 5. Fibromyalgia. 6. Diabetes. 7. Hypertension. HISTORY OF PRESENTING ILLNESS: This is a 58-year-old female with a history of coronary artery disease, CHF, fibromyalgia, diabetes, hypertension, presented to the ER with complaints of generalized weakness, malaise, and cough. She was in her usual state of health until two weeks ago when she started having fever, chills, malaise, and dry cough. The patient was admitted with concerns of COVID-19 and was treated with IV antibiotics for suspected pneumonia/dysuria. Subsequently, the patient's blood and urine cultures negative, Covid negative. The patient started feeling much better. With significant improvement in overall status and no more fever or chills, the patient was then discharged for an outpatient followup with her primary care physician. DISCHARGE INSTRUCTIONS: 1. Please take medications as prescribed. 2. Follow up with your primary care physician. 3. Heart healthy diabetic diet. 4. Activity as tolerated. Job ID: [id number] MTDD
--- NOTE | 2019-08-20 13:57 | EKG ---
Test Reason : Blood Pressure : / mmHG Vent. Rate : 105 BPM Atrial Rate : 105 BPM P-R Int : 172 ms QRS Dur : 104 ms QT Int : 372 ms P-R-T Axes : 060 033 177 degrees QTc Int : 491 ms Sinus tachycardia Abnormal ECG Confirmed by JERRICA RAMIREZ DO ([id number]), scientific editor DORA NAZARIO ([id number]) on 08/20/2019 1:57:19 PM Referred By: Confirmed By:JERRICA RAMIREZ DO
== END 2019-08-17 14:48 | disposition home or self-care (01) ==
LOC: ERS 16:35 → 2SW 20:05
PROVIDERS: ADMIT Internal Medicine; ATTEND Internal Medicine
DX: R53.81 Other malaise (principal); R05 Cough; R11.2 Nausea with vomiting, unspecified; R53.1 Weakness; R30.0 Dysuria; I25.10 Atherosclerotic heart disease of native coronary artery without angina pectoris; I11.0 Hypertensive heart disease with heart failure; I50.9 Heart failure, unspecified; M79.7 Fibromyalgia; E11.9 Type 2 diabetes mellitus without complications; E78.5 Hyperlipidemia, unspecified; E87.6 Hypokalemia; I25.2 Old myocardial infarction; F17.210 Nicotine dependence, cigarettes, uncomplicated; Z11.59 Encounter for screening for other viral diseases; Z79.4 Long term (current) use of insulin; Z79.82 Long term (current) use of aspirin; Z79.899 Other long term (current) drug therapy; Z88.5 Allergy status to narcotic agent; Z88.6 Allergy status to analgesic agent; Z88.8 Allergy status to other drugs, medicaments and biological substances; Z91.013 Allergy to seafood; Z95.5 Presence of coronary angioplasty implant and graft; Z95.810 Presence of automatic (implantable) cardiac defibrillator
CPT/HCPCS: 36415; 36416; 71045; 80048; 80053; 81003; 81015; 82010; 83690; 83735; 85025; 87040; 87086; 87635; 90471; 90732; 93005; 94640; 96361; 96365; 96366; 96367; 96372; 96375; G0009; G0378; J0696; J1650; J1815; J2765; J3010; J3475; J3480; J3490; J7050; J7620; U0002

== ENCOUNTER 2019-10-25 15:32 | Observation (INO) | payer OTHER ==
[~2019-10-25 15:32] MED LIST changes: +Iopamidol 370 76% 100 ML VIAL ONE; -Iopamidol-370 76% 500 ML 1 ML ONE
[2019-10-25 16:09] LABS: #Basophils 0.1 thou/uL (0.0-0.2); #Eosinphils 0.1 thou/uL (0.0-0.7); #Lymphocytes 1.9 thou/uL (1.20-3.40); #Monocytes 0.5 thou/uL (0.11-0.59); #Neutrophils 3.4 thou/uL (1.40-6.50); %Basophils 1.3 % (0.0-1.0); %Lymphocytes 31.4 % (21.0-51.0); %Monocytes 8.9 % (0.0-10.0); %Neutrophils 56.4 % (42.0-75.0); Hemoglobin 16.2 g/dL (12.0-16.0); Mean Corpuscular HGB CONC 33.9 g/dL (32.0-36.0); Mean Corpuscular Hemoglobin 32.4 pg (27.0-31.0); Mean Corpuscular Volume 95.4 fL (78.0-98.0); Mean Platelet Volume 7.4 fL (7.4-10.4); Platelet Count 299 thou/uL (130-400); RBC Distribution Width 13.3 % (11.5-14.5); Red Blood Cell (RBC) Count 5.02 mill/uL (4.20-5.40)
--- NOTE | 2019-10-25 16:14 | RAD ---
Chest one view HISTORY: Chest pain. COMPARISON: 08/15/2019. FINDINGS: Cardiac silhouette remains upper limits of normal in size and is magnified by projection. P ulmonary vasculature is unremarkable. Mediastinum is midline with postoperative changes, coronary arteries and a single lead left subclavia n cardiac defibrillator. No lobar consolidation or evidence of pneumothorax. IMPRESSION : Chronic-type findings are stable.
[2019-10-25 16:33] LABS: ALT (SGPT) 20 U/L (8-55); AST (SGOT) 12 U/L (5-34); Albumin 3.7 g/dL (3.5-5.0); Alkaline Phosphatase 135 U/L (40-110); Anion Gap 12 mmol/L (10-20); BUN (Urea Nitrogen) 11 mg/dL (9.8-20.1); Bilirubin, Total 0.2 mg/dL (0.2-1.2); Calc. Creatinine Clearance 0 mL/min (70-130); Calcium 9.1 mg/dL (7.8-10.44); Carbon Dioxide 32 mmol/L (22-29); Chloride 99 mmol/L (98-107); Estimated GFR-MDRD 70; Globulin 3.1 g/dL (2.4-3.5); Glucose 305 mg/dL (70-105); Potassium 3.3 mmol/L (3.5-5.1); Protein, Total 6.8 g/dL (6.0-8.3); Sodium 140 mmol/L (136-145)
[2019-10-25] MEDS ORDERED: Metoclopramide HCl 10 MG/2 ML VIAL ONE ×2 (16:45→19:01)
[2019-10-25 16:56] LABS: CKMB 2.5 ng/mL (0-6.6)
[2019-10-25 19:45] LABS: Bilirubin Negative (Negative); Blood, Urine Trace (Negative); Clarity Turbid (Clear); Glucose, Urine (Dipstick) 100 mg/dL (Negative); Ketone, Urine Negative (Negative); Leukocyte 500 Leu/uL (Negative); Nitrite Negative (Negative); Protein, Urine (Dipstick) 30 mg/dL (Neg-Trace); Specific Gravity, Urine 1.018 (1.002-1.036); Squamous Epithelial 0-3 HPF (0-3); Urobilinogen Normal mg/dL (Less than 2); WBC/HPF Greater than 50 HPF (0-3)
[2019-10-25 19:53] LABS: Bacteria/HPF None Seen HPF (None Seen); Yeast-Budding 1+ HPF (None Seen)
[2019-10-25] MEDS ORDERED: Acetaminophen 650 MG Suppository PR PRN (21:50)
[2019-10-25] MEDS ORDERED: Acetaminophen 325 MG TAB PO PRN (21:50)
[2019-10-25] MEDS ORDERED: Potassium Chloride 20 MEQ TAB PO SCH (22:00)
[2019-10-25] MEDS ORDERED: Albuterol 200 PUFF (6.7GM INHALER) INH PRN (22:01)
[2019-10-25] MEDS ORDERED: guaiFENesin 200 MG TAB PO PRN (22:02)
[2019-10-25] MEDS ORDERED: Dextrose 50% Abboject 50 ML SYRINGE SLOW IVP PRN (22:08)
[2019-10-25] MEDS ORDERED: Dextrose 5% in Water 1,000 ML IV PRN (22:08)
[2019-10-25] MEDS ORDERED: HumaLOG 300 UNITS/3 ML VIAL SC PRN (22:08)
[2019-10-25 23:05] LABS: CKMB 2.4 ng/mL (0-6.6)
--- NOTE | 2019-10-25 23:16 | CT ---
CTA Angio Chest W WO Con History: Shortness of breath Comparison: Radiograph same day. CT in [place] chest June 21, 2019 Findings: CT angiogram of the chest performed after the intravenous administration of contrast. 3-D r endering provided. No proximal segmental pulmonary arterial filling defect. Heart size is enlarged. No pericardial effus ion. That evaluation of the upper abdomen is unremarkable. No mediastinal adenopathy. Thoracic spine is intact. Low-grade peripheral atelectasis within the lingula and left lower lobe as well as the right middle l obe. No concerning airspace consolidation. Interval resolution of the previously described parenchymal opacity posterior right upper lobe. No acute displaced rib fracture. Impression: 1. No pulmonary embolism. 2. No acute inflammatory process within the chest. 3. No evidence for pneumonia.
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
[2019-10-26] MEDS ORDERED: HumaLOG 300 UNITS/3 ML VIAL ONE (00:17)
[2019-10-26] MEDS ORDERED: Acetaminophen 325 MG TAB ONE ×2 (00:27→02:53)
[2019-10-26 00:56] LABS: Lactic Acid 1.7 mmol/L (0.5-2.2)
[2019-10-26] MEDS: Nicotine 21 MG PATCH TD SCH ×2 (01:13→11:38)
[2019-10-26] MEDS ORDERED: Potassium Chloride 20 MEQ TAB ONE (01:17)
[2019-10-26 06:12] LABS: #Basophils 0.1 thou/uL (0.0-0.2); #Eosinphils 0.1 thou/uL (0.0-0.7); #Lymphocytes 1.7 thou/uL (1.20-3.40); #Monocytes 0.7 thou/uL (0.11-0.59); #Neutrophils 3.8 thou/uL (1.40-6.50); %Basophils 0.8 % (0.0-1.0); %Lymphocytes 26.5 % (21.0-51.0); %Monocytes 10.5 % (0.0-10.0); %Neutrophils 60.2 % (42.0-75.0); Hemoglobin 15.2 g/dL (12.0-16.0); Mean Corpuscular HGB CONC 31.9 g/dL (32.0-36.0); Mean Corpuscular Volume 97.3 fL (78.0-98.0); Mean Platelet Volume 7.5 fL (7.4-10.4); Platelet Count 251 thou/uL (130-400); RBC Distribution Width 13.5 % (11.5-14.5); White Blood Cell (WBC) Count 6.3 thou/uL (4.8-10.8)
[2019-10-26 06:27] LABS: Anion Gap 12 mmol/L (10-20); BUN (Urea Nitrogen) 8 mg/dL (9.8-20.1); Calc. Creatinine Clearance 0 mL/min (70-130); Calcium 8.9 mg/dL (7.8-10.44); Carbon Dioxide 31 mmol/L (22-29); Chloride 101 mmol/L (98-107); Estimated GFR-MDRD 77; Glucose 276 mg/dL (70-105); Sodium 140 mmol/L (136-145)
[2019-10-26] MEDS ORDERED: Furosemide 40 MG TAB PO SCH (08:30)
[2019-10-26] MEDS ORDERED: Mometasone 100 MCG/Formoterol 5 MCG 120 PUFF INHALER ONE (10:50)
[2019-10-26] MEDS ORDERED: Famotidine/PF 20 mg/2ml Vial ONE (10:50)
[2019-10-26] MEDS ORDERED: Aspirin 325 MG TAB ONE (10:50)
[2019-10-26] MEDS ORDERED: Furosemide 40 MG TAB ONE (10:50)
[2019-10-26] MEDS: Aspirin 325 MG TAB PO SCH (11:18)
[2019-10-26] MEDS: Famotidine/PF 20 mg/2ml Vial SLOW IVP SCH ×2 (11:18→19:42)
[2019-10-26] MEDS: Lisinopril 5 MG TAB PO SCH (11:39)
[2019-10-26] MEDS: Pregabalin 75 MG CAP PO SCH ×2 (11:41→19:41)
[2019-10-26] MEDS: Insulin Glargine 30 UNITS in Pre-Filled Syringe 1 EACH SC SCH ×2 (14:41→19:42)
[2019-10-26] MEDS: Mometasone 100 MCG/Formoterol 5 MCG 120 PUFF INHALER INH SCH ×2 (14:41→18:12)
[2019-10-26 14:47] VITALS: BMI 34.7
[2019-10-26 15:44] LABS: SARS-CoV-2 MS2 Positive; SARS-CoV-2 N Gene Negative; SARS-CoV-2 S Gene Negative; SARS-CoV-2 orf1ab Negative
[2019-10-26] MEDS ORDERED: Nystatin Powder 15 GM BOT TOP PRN (17:34)
[2019-10-26] MEDS ORDERED: cefTRIAXone\\ROCEPHIN 1 GM in Sodium Chloride 0.9% 100 ML IVPB SCH (18:00)
[2019-10-26] MEDS: Carvedilol 25 MG TAB PO SCH (18:08)
[2019-10-26] MEDS: HumaLOG 300 UNITS/3 ML VIAL SC PRN (18:12)
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
[2019-10-26] MEDS ORDERED: ALPRAZolam 0.5 MG TAB PO SCH (23:30)
[2019-10-27] MEDS: HumaLOG 300 UNITS/3 ML VIAL SC PRN ×2 (06:22→12:26)
[2019-10-27] MEDS: Mometasone 100 MCG/Formoterol 5 MCG 120 PUFF INHALER INH SCH (07:02)
[2019-10-27] MEDS: Carvedilol 25 MG TAB PO SCH ×2 (08:22→17:22)
[2019-10-27] MEDS: Lisinopril 5 MG TAB PO SCH (08:22)
[2019-10-27] MEDS: Aspirin 325 MG TAB PO SCH (08:22)
[2019-10-27] MEDS: Pregabalin 75 MG CAP PO SCH (08:23)
[2019-10-27] MEDS: Insulin Glargine 30 UNITS in Pre-Filled Syringe 1 EACH SC SCH (08:23)
[2019-10-27] MEDS: Famotidine/PF 20 mg/2ml Vial SLOW IVP SCH (08:24)
[2019-10-27 16:49] VITALS: BP 143/85; TEMP 98.4
--- NOTE | 2019-10-28 11:06 | DIS ---
DATE OF ADMISSION: 10/25/2019 DATE OF DISCHARGE: 10/27/2019 DISCHARGE DIAGNOSES: 1. Urinary tract infection. 2. Acute on chronic hypoxic respiratory failure. 3. Chronic obstructive pulmonary disease. 4. Generalized malaise. 5. Mild hypokalemia. 6. Indeterminate troponins. 7. Diabetes mellitus. 8. Hyperlipidemia. 9. Hypertension. 10. Fibromyalgia. 11. Tobacco abuse. HISTORY OF PRESENT ILLNESS: The patient is a 58-year-old female with COPD and tobacco abuse, who presented with some fairly nonspecific generalized malaise. However, the patient was convinced that she was genuinely ill. She had some chronic findings on her initial chest x-ray and labs revealed white count of 6.0. Chemistries were normal with exception of potassium of 3.3, glucose of 305. Initial troponin was 0.029. HOSPITAL COURSE: The patient was placed on observation. She had a COVID test, which returned negative. Subsequently reviewing her initial labs, she had a subsequent urinalysis obtained which was consistent with probable urinary tract infection. Therefore, she was given fluids and a dose of Rocephin. By the following day, she was feeling somewhat better. She did feel like she was benefitting from some oxygen and she had had the chronic COPD and exertional dyspnea. She had a qualifying test performed and her O2 saturation was down to 87%. Therefore, Case Management was consulted and we were able to arrange for home oxygen for the patient. PHYSICAL EXAMINATION: VITAL SIGNS: On the day of discharge, temperature is 98.4, pulse 84, respirations 18, O2 saturation 93% on 2 L, BP 143/85. GENERAL: She is awake and alert. HEART: Regular rate and rhythm. LUNGS: Clear. ABDOMEN: Benign. EXTREMITIES: No edema. DISPOSITION: The patient is discharged to home. She is to continue a diabetic diet. ACTIVITY: As tolerated. MEDICATIONS: Levaquin 500 mg one p.o. daily. She will otherwise continue with her home medical regimen includin. Pregabalin 75 mg daily. 2. Sertraline 100 mg daily. 3. Nitroglycerin sublingual p.r.n. 4. Tamsulosin 0.4 daily. 5. NovoLog 70/30 of 10 units q.i.d. 6. Lasix 40 mg b.i.d. 7. Coreg 12.5 b.i.d. 8. Cyclobenzaprine 10 mg t.i.d. 9. Lisinopril 5 mg daily. 10. Atorvastatin 80 mg daily. 11. Potassium 10 mEq b.i.d. 12. Estroven 155 mg daily. 13. CoQ10 of 100 mg daily. 14. Valerian root. 15. Multivitamin. 16. Breo Ellipta one inhalation daily. 17. Albuterol HFA. 18. DuoNeb. 19. Phenergan p.r.n. 20. Fiorinal p.r.n. 21. Coreg 6.25 daily. 22. Guaifenesin 1200 mg q.12. 23. Aspirin 325 daily. 24. Potassium. 25. Levemir insulin 30 units subcu b.i.d. 26. Xanax b.i.d. p.r.n. FOLLOWUP: She is to follow up with Dr. Kerr and she can return to the hospital at anytime she has the need to do so. Job ID: [id number]
== END 2019-10-27 18:43 | disposition home or self-care (01) ==
LOC: ERS 15:32 → ERHOLD 18:37 → 2SW 10-26 14:17 → 2NO 10-26 21:06
PROVIDERS: ADMIT Family Medicine; ATTEND Family Medicine
DX: N39.0 Urinary tract infection, site not specified (principal); J96.21 Acute and chronic respiratory failure with hypoxia; J44.9 Chronic obstructive pulmonary disease, unspecified; E87.6 Hypokalemia; R79.89 Other specified abnormal findings of blood chemistry; E11.9 Type 2 diabetes mellitus without complications; E78.5 Hyperlipidemia, unspecified; I11.0 Hypertensive heart disease with heart failure; I50.30 Unspecified diastolic (congestive) heart failure; M79.7 Fibromyalgia; F17.210 Nicotine dependence, cigarettes, uncomplicated; I25.10 Atherosclerotic heart disease of native coronary artery without angina pectoris; I25.2 Old myocardial infarction; G47.33 Obstructive sleep apnea (adult) (pediatric); I25.5 Ischemic cardiomyopathy; E66.9 Obesity, unspecified; Z68.34 Body mass index [BMI] 34.0-34.9, adult; Z20.828 Contact with and (suspected) exposure to other viral communicable diseases; Z79.82 Long term (current) use of aspirin; Z79.899 Other long term (current) drug therapy; Z88.5 Allergy status to narcotic agent; Z88.8 Allergy status to other drugs, medicaments and biological substances; Z95.1 Presence of aortocoronary bypass graft; Z95.5 Presence of coronary angioplasty implant and graft; Z95.810 Presence of automatic (implantable) cardiac defibrillator
CPT/HCPCS: 36415; 36416; 71045; 71275; 80048; 80053; 81003; 81015; 82553; 83605; 83735; 83880; 84484; 85025; 85379; 87086; 87635; 93005; 96361; 96374; 96375; 96376; G0378; J0696; J1815; J2765; J3490; Q9967; S0028; U0003

== ENCOUNTER 2020-04-20 17:36 | Emergency (ER) | payer OTHER ==
--- NOTE | 2020-04-20 18:23 | RAD ---
CHEST ONE VIEW: 04/20/20 INDICATION: 59-year-old female with history of weakness. COMPARISON: Prior exam dated 10/25/19. FINDINGS: Midline sternotomy changes. AICD is unchanged. There is a small left pleural effusion. There is a tin y right pleural effusion. There is mild pulmonary vascular congestion. No acute osseous abnormality i s evident. IMPRESSION: Mild pulmonary vascular congestion and small bilateral pleural effusions may reflect mild CHF or volu me overload. POS: BH
[2020-04-20 18:29] LABS: #Basophils 0.1 thou/uL (0.0-0.2); #Eosinphils 0.2 thou/uL (0.0-0.7); #Lymphocytes 2.4 thou/uL (1.20-3.40); #Monocytes 0.6 thou/uL (0.11-0.59); #Neutrophils 4.2 thou/uL (1.40-6.50); %Basophils 1.1 % (0.0-1.0); %Eosinophils 2.8 % (0.0-10.0); %Lymphocytes 31.5 % (21.0-51.0); %Monocytes 8.1 % (0.0-10.0); %Neutrophils 56.5 % (42.0-75.0); Hemoglobin 13.3 g/dL (12.0-16.0); Mean Corpuscular Hemoglobin 31.6 pg (27.0-31.0); Mean Corpuscular Volume 92.9 fL (78.0-98.0); Platelet Count 285 thou/uL (130-400); RBC Distribution Width 11.7 % (11.5-14.5); Red Blood Cell (RBC) Count 4.21 mill/uL (4.20-5.40); White Blood Cell (WBC) Count 7.5 thou/uL (4.8-10.8)
--- NOTE | 2020-04-20 18:48 | CT ---
CT OF THE BRAIN WITHOUT CONTRAST: 04/20/20 INDICATION: 59-year-old female with history of unsteady gait with weakness and left sided weakness. COMPARISON: Prior exam dated 08/19/13. FINDINGS: The punctate regions of hypodensity within the subcortical frontal white matter bilaterally appears s table likely related to chronic small vessel white matter ischemic change. No definite acute infarct, hemorrhage, or hydrocephalus is present. Septum pellucidum and third ventricle are midline. The mast oid air cells, paranasal sinuses are clear. Skull is intact. IMPRESSION: 1. No acute intracranial abnormality. 2. Persistent mild chronic small vessel white matter ischemic change. POS: BH
[2020-04-20 18:52] LABS: ALT (SGPT) 17 U/L (8-55); AST (SGOT) 12 U/L (5-34); Albumin 3.9 g/dL (3.5-5.0); Alkaline Phosphatase 70 U/L (40-110); Anion Gap 16 mmol/L (10-20); BUN (Urea Nitrogen) 18 mg/dL (9.8-20.1); Bilirubin, Total 0.2 mg/dL (0.2-1.2); Calc. Creatinine Clearance 0 mL/min (70-130); Calcium 8.6 mg/dL (7.8-10.44); Carbon Dioxide 32 mmol/L (22-29); Chloride 97 mmol/L (98-107); Glucose 244 mg/dL (70-105); Potassium 3.1 mmol/L (3.5-5.1); Protein, Total 6.9 g/dL (6.0-8.3); Sodium 142 mmol/L (136-145)
== END 2020-04-20 19:43 | disposition home or self-care (01) ==
LOC: ERS 17:36
DX: H53.8 Other visual disturbances (principal); I11.0 Hypertensive heart disease with heart failure; E11.9 Type 2 diabetes mellitus without complications; I50.9 Heart failure, unspecified; I25.10 Atherosclerotic heart disease of native coronary artery without angina pectoris; J45.909 Unspecified asthma, uncomplicated; G47.33 Obstructive sleep apnea (adult) (pediatric); M79.7 Fibromyalgia; I21.9 Acute myocardial infarction, unspecified; F17.210 Nicotine dependence, cigarettes, uncomplicated; Z79.899 Other long term (current) drug therapy; Z79.4 Long term (current) use of insulin; Z79.82 Long term (current) use of aspirin
CPT/HCPCS: 36415; 70450; 71045; 80053; 85025; 93005

== ENCOUNTER 2020-09-10 21:03 | Emergency (ER) | payer OTHER ==
[2020-09-10 21:40] LABS: #Eosinphils 0.1 thou/uL (0.0-0.7); #Lymphocytes 1.4 thou/uL (1.20-3.40); #Monocytes 0.8 thou/uL (0.11-0.59); #Neutrophils 6.7 thou/uL (1.40-6.50); %Basophils 0.2 % (0.0-1.0); %Eosinophils 1.5 % (0.0-10.0); %Monocytes 8.8 % (0.0-10.0); %Neutrophils 74.5 % (42.0-75.0); Hemoglobin 13.2 g/dL (12.0-16.0); Mean Corpuscular Hemoglobin 31.3 pg (27.0-31.0); Mean Corpuscular Volume 92.2 fL (78.0-98.0); Platelet Count 266 thou/uL (130-400); RBC Distribution Width 12.7 % (11.5-14.5)
[2020-09-10 22:26] LABS: ALT (SGPT) 16 U/L (8-55); AST (SGOT) 13 U/L (5-34); Albumin 3.9 g/dL (3.5-5.0); Alkaline Phosphatase 69 U/L (40-110); Anion Gap 15 mmol/L (10-20); BUN (Urea Nitrogen) 19 mg/dL (9.8-20.1); Bilirubin, Total 0.3 mg/dL (0.2-1.2); Calc. Creatinine Clearance 0 mL/min (70-130); Calcium 9.2 mg/dL (7.8-10.44); Carbon Dioxide 25 mmol/L (22-29); Chloride 105 mmol/L (98-107); Glucose 252 mg/dL (70-105); Lipase 10 U/L (8-78); Potassium 3.1 mmol/L (3.5-5.1); Protein, Total 6.9 g/dL (6.0-8.3); Sodium 142 mmol/L (136-145)
[2020-09-10 23:45] LABS: Bacteria/HPF None Seen HPF (None Seen); Bilirubin Negative (Negative); Blood, Urine 2+ (Negative); Clarity Turbid (Clear); Glucose, Urine (Dipstick) Normal (Negative); Ketone, Urine 10 mg/dL (Negative); Leukocyte 500 Leu/uL (Negative); Nitrite Negative (Negative); Protein, Urine (Dipstick) 50 mg/dL (Neg-Trace); RBC/HPF 21-50 HPF (0-3); Specific Gravity, Urine 1.023 (1.002-1.036); Squamous Epithelial 0-3 HPF (0-3); Urobilinogen Normal mg/dL (Less than 2); WBC/HPF Greater than 50 HPF (0-3)
== END 2020-09-11 | disposition home or self-care (01) ==
LOC: ERS 21:03
DX: N39.0 Urinary tract infection, site not specified (principal); I11.0 Hypertensive heart disease with heart failure; I50.9 Heart failure, unspecified; I25.2 Old myocardial infarction; E11.9 Type 2 diabetes mellitus without complications; F17.210 Nicotine dependence, cigarettes, uncomplicated
CPT/HCPCS: 36415; 74176; 80053; 81003; 81015; 83690; 85025; 87086; 93005